=== PATIENT | female | born 1970 | race African-American/Black ===

== ENCOUNTER 2016-11-24 18:39 | Inpatient (IN) | payer OTHER ==
[~2016-11-24] VITALS: Ht 162.6 cm; Wt 102.7 kg
[~2016-11-24 18:39] MED LIST: INSU100C6
[2016-11-24] MEDS ORDERED: SODIUM CHLORIDE 0.9% 1,000 ML IV ONE ×2 (18:59→21:32)
[2016-11-24] MEDS ORDERED: MORPHINE SULFATE 4 MG/ML CPJ (NOT FOR IM USE) IV STA (18:59)
[2016-11-24] MEDS ORDERED: ONDANSETRON HCL 4MG/2ML VIAL IV STA (18:59)
[2016-11-24] MEDS ORDERED: FAMOTIDINE 20MG/2ML VIAL IV STA (18:59)
[2016-11-24] MEDS ORDERED: FAMOTIDINE 20MG/2ML VIAL IV ONE (19:15)
[2016-11-24 19:32] LABS: BASOPHILS % 0.5 % (0.0-2.0); EOSINOPHILS % 0.4 % (0.0-5.0); HEMATOCRIT. 52.2 % (36.0-48.0); HEMOGLOBIN. 17.1 g/dL (12.0-16.0); LYMPHOCYTES % 25.6 % (20.0-50.0); MEAN CORPUSCULAR HEMOGLOBIN 29.5 pg (28.0-32.0); MEAN CORPUSCULAR HGB CONC 32.7 g/dL (31.0-37.0); MEAN CORPUSCULAR VOLUME 90.2 fL (81.0-99.0); MEAN PLATELET VOLUME 9.7 fl (7.4-10.4); MONOCYTES % 5.4 % (2.0-8.0); NEUTROPHILS % 68.1 % (40.0-76.0); PLATELET 355 x1000/uL (130-400); RED BLOOD CELL COUNT 5.79 mill/uL (4.2-5.4); RED CELL DISTRIBUTION WIDTH 13.6 % (11.6-14.6); WHITE BLOOD COUNT 16.5 x1000/uL (4.5-11.0)
[2016-11-24 19:40] LABS: PARTIAL THROMBOPLASTIN TIME 24.7 sec (24.0-34.0); PROTHROMBIN TIME 10.4 sec
[2016-11-24 19:40] LABS: BG BASE EXCESS -6.3 mmol/L (-2.0-2.0); BG CARBOXYHEMOGLOBIN 0.6 % (0.5-1.5); BG DEOXYHEMOGLOBIN 1.6 % (0.0-5.0); BG FRACTION INSPIRED OXYGEN 21; BG HCO3 ACT 14.7 mmol/L (22.0-26.0); BG METHEMOGLOBIN 0.3 % (0.0-1.5); BG OXYGEN SATURATION 98.4 % (92.0-98.5); BG OXYHEMOGLOBIN 97.5 % (94.0-97.0); BG PCO2 21.5 mmHg (35.0-45.0); BG PH 7.452 (7.350-7.450); BG SAMPLE SITE RIGHT RADIAL; BG TOTAL HEMOGLOBIN 17.9 g/dL (12.0-18.0); BG VENT MODE ROOM AIR
[2016-11-24 19:41] LABS: ALANINE AMINOTRANSFERASE 28 IU/L (13-61); ALBUMIN 3.7 g/dL (3.4-5.0); ANION GAP 22; CALCIUM 10.2 mg/dL (8.5-10.1); CARBON DIOXIDE 20 mEq/L (21-32); CHLORIDE 94 mEq/L (98-107); INDEX HEMOLYSI 1 (1-3); INDEX ICTERIC 1 (1-4); INDEX LIPEMIC 1 (1-3); LIPASE 227 IU/L (73-393); MAGNESIUM 2.3 mg/dL (1.8-2.4); UREA NITROGEN BLOOD 22 mg/dL (7-21); eGFR > 60 mL/min (>60)
[2016-11-24 19:44] LABS: TROPONIN I 0.04 ng/mL (0.00-0.04)
[2016-11-24 19:46] LABS: BETA HYDROXYBUTYRATE 4.5 mMol/L (0.0-0.3)
[2016-11-24 19:49] LABS: HCG SCREEN NEGATIVE
[2016-11-24] MEDS ORDERED: INSULIN REGULAR (HUMULIN R) 300UNITS/3ML IV ONE (20:00)
[2016-11-24] MEDS ORDERED: DIPHENHYDRAMINE 50MG/ML VIAL IV PRN (21:45)
[2016-11-24] MEDS ORDERED: CLONIDINE 0.1MG TABLET PO PRN (21:45)
[2016-11-24] MEDS ORDERED: IPRATROPIUM/ALBUTEROL 0.5-3(2.5)MG/3ML NEB INH PRN (21:45)
[2016-11-24] MEDS ORDERED: DEXTROSE 50% WATER 50ML SYRINGE IV PRN (21:45)
[2016-11-24] MEDS ORDERED: ONDANSETRON HCL 4MG/2ML VIAL IV PRN (21:45)
[2016-11-24] MEDS ORDERED: ACETAMINOPHEN 325MG TABLET PO PRN (21:45)
[2016-11-24 22:04] LABS: CLARITY URINE CLEAR (CLEAR); COLOR URINE YELLOW (YELLOW); GLUCOSE URINE 3+ (NEGATIVE); KETONES URINE 3+ (NEGATIVE); LEUKOCYTE ESTERASE URINE NEGATIVE (NEGATIVE); NITRITE URINE NEGATIVE (NEGATIVE); OCCULT BLOOD URINE 3+ (NEGATIVE); PROTEIN URINE NEGATIVE (NEGATIVE); SPECIFIC GRAVITY URINE 1.036 (1.005-1.030); UROBILINOGEN URINE 0.2 E.U./dL (0.2-1.0)
[2016-11-24 22:17] LABS: *AMPHETAMINES SCREEN URINE NEGATIVE (NEGATIVE); *BARBITURATES SCREEN URINE NEGATIVE (NEGATIVE); *BENZODIAZEPINES SCREEN URINE NEGATIVE (NEGATIVE); *COCAINE SCREEN URINE NEGATIVE (NEGATIVE); ECSTASY MDMA SCREEN URINE NEGATIVE (NEGATIVE); METHADONE URINE SCREEN NEGATIVE (NEGATIVE); OPIATES URINE SCREEN NEGATIVE (NEGATIVE); PHENCYCLIDINE URINE SCREEN NEGATIVE (NEGATIVE)
[2016-11-24 22:21] LABS: CANNABINOID URINE SCREEN PRESUMTIVE POSITIVE (NEGATIVE)
[2016-11-24 22:31] LABS: BACTERIA URINE TRACE; RBC URINE 50-100 /hpf (0-2); SQUAMOUS EPITHELIAL CELL URINE FEW /lpf (RARE/1+); WBC URINE 0-2 /hpf (0-2)
[2016-11-24] MEDS: INSULIN DETEMIR UD 100 UNITS/ML SYR SUBCUT SCH (23:25)
[2016-11-24 23:44] VITALS: BP 138/85
[2016-11-25] MEDS: BLOOD SUGAR DIAGNOSTIC STRIP TEST SCH ×5 (01:42→20:24)
[2016-11-25] MEDS: INSULIN LISPRO 100 UNITS/ML SUBCUT SCH ×6 (01:50→20:23)
[2016-11-25 06:11] LABS: BASOPHILS % 0.6 % (0.0-2.0); EOSINOPHILS % 0.8 % (0.0-5.0); HEMATOCRIT. 47.9 % (36.0-48.0); HEMOGLOBIN. 15.8 g/dL (12.0-16.0); LYMPHOCYTES % 36.3 % (20.0-50.0); MEAN CORPUSCULAR HEMOGLOBIN 29.4 pg (28.0-32.0); MEAN CORPUSCULAR HGB CONC 33.1 g/dL (31.0-37.0); MEAN CORPUSCULAR VOLUME 88.7 fL (81.0-99.0); MEAN PLATELET VOLUME 9.4 fl (7.4-10.4); MONOCYTES % 7.6 % (2.0-8.0); NEUTROPHILS % 54.7 % (40.0-76.0); PLATELET 311 x1000/uL (130-400); RED BLOOD CELL COUNT 5.39 mill/uL (4.2-5.4); RED CELL DISTRIBUTION WIDTH 13.3 % (11.6-14.6); WHITE BLOOD COUNT 14.8 x1000/uL (4.5-11.0)
[2016-11-25 06:37] LABS: ALANINE AMINOTRANSFERASE 24 IU/L (13-61); ALBUMIN 3.4 g/dL (3.4-5.0); ANION GAP 15; CALCIUM 9.2 mg/dL (8.5-10.1); CARBON DIOXIDE 26 mEq/L (21-32); CHLORIDE 101 mEq/L (98-107); HDL CHOLESTEROL 35 mg/dL (40-59); INDEX HEMOLYSI 1 (1-3); INDEX ICTERIC 1 (1-4); INDEX LIPEMIC 1 (1-3); LDL CHOLESTEROL 108 mg/dL (5-100); TRIGLYCERIDE 238 mg/dL (0-150); UREA NITROGEN BLOOD 16 mg/dL (7-21); eGFR > 60 mL/min (>60)
[2016-11-25 06:38] LABS: TROPONIN I 0.04 ng/mL (0.00-0.04)
[2016-11-25] MEDS ORDERED: BLOOD SUGAR DIAGNOSTIC STRIP TEST SCH (06:45)
[2016-11-25] MEDS ORDERED: INSULIN LISPRO 100 UNITS/ML SUBCUT SCH (07:15)
[2016-11-25 08:00] VITALS: BP 135/84
[2016-11-25] MEDS: INSULIN DETEMIR UD 100 UNITS/ML SYR SUBCUT SCH ×2 (09:52→21:28)
[2016-11-25] MEDS: HYDROCODONE/ACETAMINOPHEN 5/325MG TABLET PO PRN (11:19)
[2016-11-25 12:00] VITALS: BP 132/81
[2016-11-25 16:00] VITALS: BP 132/89
[2016-11-25 20:00] VITALS: BP 144/88
[2016-11-26] VITALS: BP 134/76
[2016-11-26 04:00] VITALS: BP 148/89
[2016-11-26] MEDS: BLOOD SUGAR DIAGNOSTIC STRIP TEST SCH ×2 (06:24→12:21)
[2016-11-26] MEDS: INSULIN LISPRO 100 UNITS/ML SUBCUT SCH ×4 (06:28→12:30)
[2016-11-26] MEDS: HYDROCODONE/ACETAMINOPHEN 5/325MG TABLET PO PRN (06:41)
[2016-11-26 08:00] VITALS: BP 106/84
[2016-11-26] MEDS: INSULIN DETEMIR UD 100 UNITS/ML SYR SUBCUT SCH (09:38)
[2016-11-26 11:23] LABS: BASOPHILS % 0.3 % (0.0-2.0); HEMATOCRIT. 43.3 % (36.0-48.0); HEMOGLOBIN. 14.7 g/dL (12.0-16.0); LYMPHOCYTES % 40.3 % (20.0-50.0); MEAN CORPUSCULAR HEMOGLOBIN 29.6 pg (28.0-32.0); MEAN PLATELET VOLUME 9.2 fl (7.4-10.4); MONOCYTES % 5.7 % (2.0-8.0); NEUTROPHILS % 52.7 % (40.0-76.0); PLATELET 256 x1000/uL (130-400); RED BLOOD CELL COUNT 4.98 mill/uL (4.2-5.4); RED CELL DISTRIBUTION WIDTH 13.3 % (11.6-14.6); WHITE BLOOD COUNT 10.2 x1000/uL (4.5-11.0)
[2016-11-26 11:38] LABS: ANION GAP 11; CALCIUM 8.3 mg/dL (8.5-10.1); CARBON DIOXIDE 28 mEq/L (21-32); CHLORIDE 98 mEq/L (98-107); INDEX HEMOLYSI 1 (1-3); INDEX ICTERIC 1 (1-4); INDEX LIPEMIC 1 (1-3); UREA NITROGEN BLOOD 10 mg/dL (7-21); eGFR > 60 mL/min (>60)
[2016-11-26 12:00] VITALS: BP 121/73
[2016-11-26 14:11] VITALS: BP 121/73
== END 2016-11-26 15:16 | disposition home or self-care (01) | DRG 420 ==
LOC: ER 18:40 → 5WST 20:31
PROVIDERS: ADMIT Internal Medicine; ATTEND Internal Medicine
DX: E11.65 Type 2 diabetes mellitus with hyperglycemia (principal); I10 Essential (primary) hypertension; E87.1 Hypo-osmolality and hyponatremia; E86.0 Dehydration; D72.829 Elevated white blood cell count, unspecified; G89.29 Other chronic pain; F12.90 Cannabis use, unspecified, uncomplicated; R74.8 Abnormal levels of other serum enzymes
CPT/HCPCS: 36415; 36600; 74022; 80048; 80053; 80061; 80305; 81001; 82010; 82375; 82805; 82962; 83036; 83690; 83735; 83930; 83935; 84484; 84703; 85025; 85610; 85730; 87040; 87086; 93005; 96361; 96374; 96375; 96376; 99291; J1815; J2270; J2405; J3490; J7030

== ENCOUNTER 2017-01-11 11:11 | Inpatient (IN) | payer OTHER ==
[~2017-01-11] VITALS: Ht 157.5 cm; Wt 108.9 kg
[2017-01-11] MEDS ORDERED: SODIUM CHLORIDE 0.9% 1,000 ML IV ONE (11:45)
[2017-01-11] MEDS ORDERED: MORPHINE SULFATE 4 MG/ML CPJ (NOT FOR IM USE) IV STA (11:45)
[2017-01-11] MEDS ORDERED: ONDANSETRON HCL 4MG/2ML VIAL IV STA (11:45)
[2017-01-11 12:55] LABS: BASOPHILS % 0.9 % (0.0-2.0); EOSINOPHILS % 0.1 % (0.0-5.0); HEMOGLOBIN. 13.4 g/dL (12.0-16.0); LYMPHOCYTES % 33.4 % (20.0-50.0); MEAN CORPUSCULAR HEMOGLOBIN 29.2 pg (28.0-32.0); MEAN CORPUSCULAR VOLUME 87.2 fL (81.0-99.0); MEAN PLATELET VOLUME 8.2 fl (7.4-10.4); MONOCYTES % 9.8 % (2.0-8.0); NEUTROPHILS % 55.8 % (40.0-76.0); PLATELET 233 x1000/uL (130-400); RED BLOOD CELL COUNT 4.59 mill/uL (4.2-5.4); RED CELL DISTRIBUTION WIDTH 13.5 % (11.6-14.6)
[2017-01-11 13:02] LABS: INR 1.2; PARTIAL THROMBOPLASTIN TIME 28.7 sec (24.0-34.0); PROTHROMBIN TIME 12.1 sec
[2017-01-11 13:08] LABS: CARBON DIOXIDE 30 mEq/L (21-32); CHLORIDE 101 mEq/L (98-107)
[2017-01-11 13:12] LABS: HCG SCREEN NEGATIVE
[2017-01-11 13:35] LABS: CLARITY URINE TURBID (CLEAR); COLOR URINE DARK YELLOW (YELLOW); GLUCOSE URINE NEGATIVE (NEGATIVE); KETONES URINE 1+ (NEGATIVE); LEUKOCYTE ESTERASE URINE 3+ (NEGATIVE); NITRITE URINE POSITIVE (NEGATIVE); OCCULT BLOOD URINE 2+ (NEGATIVE); PH URINE 5.5 (4.5-8.0); PROTEIN URINE 3+ (NEGATIVE)
[2017-01-11] MEDS ORDERED: CEFTRIAXONE 1 G PREMIX 50 ML IV ONE (15:45)
[2017-01-11] MEDS ORDERED: MORPHINE SULFATE 4 MG/ML CPJ (NOT FOR IM USE) IV ONE (16:15)
[2017-01-11 18:00] VITALS: BP 137/69
[2017-01-11] MEDS ORDERED: CLONIDINE 0.1MG TABLET PO PRN (19:00)
[2017-01-11] MEDS ORDERED: HYDROCODONE/ACETAMINOPHEN 5/325MG TABLET PO PRN (19:00)
[2017-01-11] MEDS ORDERED: IPRATROPIUM/ALBUTEROL 0.5-3(2.5)MG/3ML NEB INH PRN (19:00)
[2017-01-11] MEDS ORDERED: MAGNESIUM/ALUMINUM HYDROXIDE/SIMETHICONE 30ML UDC PO PRN (19:00)
[2017-01-11] MEDS ORDERED: DOCUSATE SODIUM 100MG CAPSULE PO PRN (19:00)
[2017-01-11] MEDS ORDERED: ONDANSETRON HCL 4MG/2ML VIAL IV PRN (19:00)
[2017-01-11 20:00] VITALS: BP 116/70
[2017-01-11] MEDS ORDERED: DEXTROSE 50% WATER 50ML SYRINGE IV PRN (21:15)
[2017-01-11] MEDS: ACETAMINOPHEN 325MG TABLET PO PRN (21:16)
[2017-01-11] MEDS: ENOXAPARIN 30MG/0.3ML SYR SUBCUT SCH (21:16)
[2017-01-11 21:34] VITALS: BP 118/68
[2017-01-11 21:45] LABS: CREATINE KINASE 87 IU/L (26-192); CREATINE KINASE MB FRACTION < 0.5 ng/mL (0.5-3.6); TROPONIN I < 0.02 ng/mL (0.00-0.04)
[2017-01-11] MEDS: SODIUM CHLORIDE 0.9% 1,000 ML IV SCH (22:05)
[2017-01-11] MEDS: CEFTRIAXONE 1 G PREMIX 50 ML IV SCH (22:05)
[2017-01-12] VITALS: BP 121/65
[2017-01-12 04:00] VITALS: BP 112/60
[2017-01-12] MEDS: BLOOD SUGAR DIAGNOSTIC STRIP TEST SCH ×3 (06:46→17:20)
[2017-01-12] MEDS: SODIUM CHLORIDE 0.9% 1,000 ML IV SCH (06:47)
[2017-01-12 06:56] LABS: BASOPHILS % 0.3 % (0.0-2.0); EOSINOPHILS % 1.6 % (0.0-5.0); HEMATOCRIT. 39.6 % (36.0-48.0); HEMOGLOBIN. 13.5 g/dL (12.0-16.0); LYMPHOCYTES % 34.7 % (20.0-50.0); MEAN CORPUSCULAR HEMOGLOBIN 29.6 pg (28.0-32.0); MEAN CORPUSCULAR VOLUME 86.9 fL (81.0-99.0); MEAN PLATELET VOLUME 8.6 fl (7.4-10.4); MONOCYTES % 10.4 % (2.0-8.0); PLATELET 250 x1000/uL (130-400); RED BLOOD CELL COUNT 4.56 mill/uL (4.2-5.4); RED CELL DISTRIBUTION WIDTH 13.4 % (11.6-14.6)
[2017-01-12] MEDS: INSULIN LISPRO 100 UNITS/ML SUBCUT SCH ×3 (07:49→17:34)
[2017-01-12 08:00] VITALS: BP 114/60
[2017-01-12] MEDS: ENOXAPARIN 30MG/0.3ML SYR SUBCUT SCH (08:19)
[2017-01-12] MEDS: CEFTRIAXONE 1 G PREMIX 50 ML IV SCH (08:27)
[2017-01-12 08:29] LABS: CARBON DIOXIDE 27 mEq/L (21-32); CHLORIDE 104 mEq/L (98-107); CREATINE KINASE 67 IU/L (26-192); CREATINE KINASE MB FRACTION < 0.5 ng/mL (0.5-3.6); HDL CHOLESTEROL 9 mg/dL (40-59); LDL CHOLESTEROL 77 mg/dL (5-100); TROPONIN I < 0.02 ng/mL (0.00-0.04)
[2017-01-12] MEDS: ACETAMINOPHEN 325MG TABLET PO PRN (11:37)
[2017-01-12 12:00] VITALS: BP 117/64
[2017-01-12 16:00] VITALS: BP 117/75
[2017-01-12] MEDS ORDERED: CEFTRIAXONE 1 G PREMIX 50 ML IV NR (17:30)
[2017-01-12 18:28] VITALS: BP 117/75
== END 2017-01-12 20:30 | disposition home or self-care (01) | DRG 463 ==
LOC: ER 11:18 → 6EST 15:57 → ENRESERV 16:14
PROVIDERS: ADMIT Internal Medicine; ATTEND Internal Medicine
DX: N10 Acute pyelonephritis (principal); Z68.41 Body mass index [BMI] 40.0-44.9, adult; I10 Essential (primary) hypertension; E11.9 Type 2 diabetes mellitus without complications; E66.9 Obesity, unspecified; Z60.2 Problems related to living alone; M48.07 Spinal stenosis, lumbosacral region
CPT/HCPCS: 36415; 71010; 74176; 76705; 80053; 80061; 81001; 82550; 82553; 82962; 83690; 84443; 84484; 84703; 85025; 85610; 85730; 87040; 93005; 93970; 96361; 96365; 96375; 99285; J0696; J1650; J1815; J2270; J2405; J7030

== ENCOUNTER 2018-04-21 15:54 | Emergency (ER) | payer OTHER ==
[~2018-04-21] VITALS: Ht 162.6 cm; Wt 76.0 kg
[2018-04-21] MEDS ORDERED: ONDANSETRON 4MG ODT PO STA (16:09)
[2018-04-21] MEDS ORDERED: IBUPROFEN 600MG TABLET PO ONE (16:15)
[2018-04-21 16:39] LABS: BASOPHILS % 0.4 % (0.0-2.0); EOSINOPHILS % 0.1 % (0.0-5.0); HEMATOCRIT. 44.5 % (36.0-48.0); LYMPHOCYTES % 13.1 % (20.0-50.0); MEAN CORPUSCULAR HEMOGLOBIN 29.6 pg (28.0-32.0); MEAN CORPUSCULAR VOLUME 87.7 fL (81.0-99.0); MEAN PLATELET VOLUME 8.2 fl (7.4-10.4); MONOCYTES % 1.9 % (2.0-8.0); NEUTROPHILS % 84.5 % (40.0-76.0); PLATELET 354 x1000/uL (130-400); RED BLOOD CELL COUNT 5.07 mill/uL (4.2-5.4); RED CELL DISTRIBUTION WIDTH 13.6 % (11.6-14.6)
[2018-04-21 16:44] LABS: CHLORIDE 102 mEq/L (98-107)
[2018-04-21] MEDS ORDERED: ONDANSETRON 4MG ODT PO ONE (17:30)
[2018-04-21] MEDS ORDERED: MAGNESIUM/ALUMINUM HYDROXIDE/SIMETHICONE 30ML UDC PO ONE (17:45)
[2018-04-21] MEDS ORDERED: ONDANSETRON HCL 4MG/2ML INJ IV STA (17:47)
[2018-04-21] MEDS ORDERED: SODIUM CHLORIDE 0.9% 1,000 ML IV ONE (17:47)
[2018-04-21] MEDS ORDERED: KETOROLAC 30MG/ML VIAL IV STA (17:47)
[2018-04-21 19:33] LABS: CLARITY URINE CLOUDY (CLEAR); KETONES URINE 3+ (NEGATIVE); LEUKOCYTE ESTERASE URINE NEGATIVE (NEGATIVE); NITRITE URINE NEGATIVE (NEGATIVE); OCCULT BLOOD URINE 3+ (NEGATIVE); PROTEIN URINE 3+ (NEGATIVE); SPECIFIC GRAVITY URINE 1.037 (1.005-1.030); UROBILINOGEN URINE 0.2 E.U./dL (0.2-1.0)
[2018-04-21 19:37] LABS: COLOR URINE DARK YELLOW (YELLOW)
[2018-04-21 20:10] VITALS: BP 125/64
== END 2018-04-21 20:43 | disposition home or self-care (01) ==
LOC: ER 16:18
DX: R10.9 Unspecified abdominal pain (principal); Z79.4 Long term (current) use of insulin; E11.65 Type 2 diabetes mellitus with hyperglycemia; D72.829 Elevated white blood cell count, unspecified; R94.31 Abnormal electrocardiogram [ECG] [EKG]; R11.2 Nausea with vomiting, unspecified
CPT/HCPCS: 36415; 71045; 80053; 81003; 83690; 85025; 93005; 96361; 96374; 96375; 99284; J1885; J2405; J7030; Q0162; Z7610

== ENCOUNTER 2018-04-22 19:10 | Emergency (ER) | payer OTHER ==
[~2018-04-22] VITALS: Ht 162.6 cm; Wt 105.0 kg
[2018-04-22] MEDS ORDERED: SODIUM CHLORIDE 0.9% 1,000 ML IV ONE (19:23)
[2018-04-22] MEDS ORDERED: ONDANSETRON HCL 4MG/2ML INJ IV STA (19:23)
[2018-04-22] MEDS ORDERED: MORPHINE SULFATE 4 MG/ML CPJ (NOT FOR IM USE) IV STA (19:23)
[2018-04-22] MEDS ORDERED: PANTOPRAZOLE 80 MG in SODIUM CHLORIDE 0.9% 100 ML IV STA (19:27)
[2018-04-22] MEDS ORDERED: PANTOPRAZOLE SODIUM 40 MG/VIAL IV STA (19:27)
[2018-04-22 20:49] LABS: BASOPHILS % 0.5 % (0.0-2.0); EOSINOPHILS % 0.1 % (0.0-5.0); HEMATOCRIT. 41.6 % (36.0-48.0); HEMOGLOBIN. 14.1 g/dL (12.0-16.0); LYMPHOCYTES % 22.1 % (20.0-50.0); MEAN CORPUSCULAR HEMOGLOBIN 29.9 pg (28.0-32.0); MEAN CORPUSCULAR VOLUME 88.4 fL (81.0-99.0); MEAN PLATELET VOLUME 8.7 fl (7.4-10.4); MONOCYTES % 5.5 % (2.0-8.0); NEUTROPHILS % 71.8 % (40.0-76.0); PLATELET 341 x1000/uL (130-400); RED BLOOD CELL COUNT 4.71 mill/uL (4.2-5.4); RED CELL DISTRIBUTION WIDTH 13.3 % (11.6-14.6)
[2018-04-22 20:52] LABS: CHLORIDE 97 mEq/L (98-107); INR 1.1; PARTIAL THROMBOPLASTIN TIME 26.4 sec (23.4-31.0); PROTHROMBIN TIME 10.6 sec (9.1-11.1)
[2018-04-22 20:59] LABS: HCG SCREEN NEGATIVE
[2018-04-22] MEDS ORDERED: LEVOFLOXACIN 750MG PREMIX 150 ML IV ONE (21:00)
[2018-04-22] MEDS ORDERED: SODIUM CHLORIDE 0.9% 1000ML BAG (SEPSIS BOLUS) IV ONE (21:00)
[2018-04-22 21:02] LABS: CLARITY URINE TURBID (CLEAR); COLOR URINE ORANGE (YELLOW); KETONES URINE NEGATIVE (NEGATIVE); LEUKOCYTE ESTERASE URINE 2+ (NEGATIVE); NITRITE URINE POSITIVE (NEGATIVE); OCCULT BLOOD URINE 2+ (NEGATIVE); PH URINE 5.5 (4.5-8.0); PROTEIN URINE 2+ (NEGATIVE); SPECIFIC GRAVITY URINE 1.024 (1.005-1.030)
[2018-04-22] MEDS ORDERED: KCL 10MEQ/50ML PREMIX 50 ML IV ONE (21:45)
[2018-04-22 22:59] LABS: BASOPHILS % 0.8 % (0.0-2.0); EOSINOPHILS % 0.1 % (0.0-5.0); HEMOGLOBIN. 14.1 g/dL (12.0-16.0); LYMPHOCYTES % 25.6 % (20.0-50.0); MEAN CORPUSCULAR HEMOGLOBIN 29.7 pg (28.0-32.0); MEAN CORPUSCULAR VOLUME 88.4 fL (81.0-99.0); MEAN PLATELET VOLUME 8.4 fl (7.4-10.4); MONOCYTES % 6.3 % (2.0-8.0); NEUTROPHILS % 67.2 % (40.0-76.0); PLATELET 333 x1000/uL (130-400); RED BLOOD CELL COUNT 4.76 mill/uL (4.2-5.4); RED CELL DISTRIBUTION WIDTH 13.3 % (11.6-14.6)
[2018-04-23] MEDS ORDERED: MORPHINE SULFATE 4 MG/ML CPJ (NOT FOR IM USE) IV ONE (00:45)
[2018-04-23 02:33] VITALS: BP 140/60
== END 2018-04-23 03:02 | disposition short-term general hospital (02) ==
LOC: ER 19:10 → 6WST 21:33 → UNDOADMIN 21:33 → EDBEDREQTM 21:35 → EDBEDREQ 21:35 → ENRESERV 23:13 → ER 04-23 03:02 → CANBEDREQ 04-23 06:28
DX: K92.2 Gastrointestinal hemorrhage, unspecified (principal); N39.0 Urinary tract infection, site not specified; K85.90 Acute pancreatitis without necrosis or infection, unspecified; E87.6 Hypokalemia; R00.1 Bradycardia, unspecified
CPT/HCPCS: 36415; 71045; 74176; 80053; 81003; 82962; 83605; 83690; 84484; 84703; 85025; 85610; 85730; 87040; 87077; 87086; 87186; 93005; 96365; 96366; 96367; 96368; 96375; 96376; 99285; C9113; J1956; J2270; J2405; J3480; J7030; X7700; Z7610; 96361; J7050

== ENCOUNTER 2018-04-27 15:05 | Emergency (ER) | payer OTHER ==
[~2018-04-27] VITALS: Ht 165.1 cm; Wt 100.0 kg
[2018-04-27] MEDS ORDERED: KETOROLAC 30MG/ML VIAL IV STA (20:03)
[2018-04-27] MEDS ORDERED: ONDANSETRON HCL 4MG/2ML INJ IV STA (20:03)
[2018-04-27] MEDS ORDERED: SODIUM CHLORIDE 0.9% 1,000 ML IV ONE (20:03)
[2018-04-27 21:06] LABS: BASOPHILS % 0.4 % (0.0-2.0); EOSINOPHILS % 0.1 % (0.0-5.0); HEMATOCRIT. 43.7 % (36.0-48.0); HEMOGLOBIN. 14.8 g/dL (12.0-16.0); LYMPHOCYTES % 14.6 % (20.0-50.0); MEAN CORPUSCULAR HEMOGLOBIN 29.9 pg (28.0-32.0); MEAN CORPUSCULAR VOLUME 88.3 fL (81.0-99.0); MEAN PLATELET VOLUME 8.5 fl (7.4-10.4); MONOCYTES % 5.1 % (2.0-8.0); NEUTROPHILS % 79.8 % (40.0-76.0); PLATELET 372 x1000/uL (130-400); RED BLOOD CELL COUNT 4.94 mill/uL (4.2-5.4); RED CELL DISTRIBUTION WIDTH 13.6 % (11.6-14.6)
[2018-04-27 21:12] LABS: CHLORIDE 101 mEq/L (98-107)
[2018-04-27] MEDS ORDERED: POTASSIUM CHLORIDE 20MEQ TABLET SR PO ONE (22:45)
[2018-04-28 00:02] LABS: CLARITY URINE CLOUDY (CLEAR); COLOR URINE YELLOW (YELLOW); KETONES URINE 1+ (NEGATIVE); LEUKOCYTE ESTERASE URINE 1+ (NEGATIVE); NITRITE URINE NEGATIVE (NEGATIVE); OCCULT BLOOD URINE 2+ (NEGATIVE); PH URINE 6.5 (4.5-8.0); PROTEIN URINE 3+ (NEGATIVE); SPECIFIC GRAVITY URINE 1.022 (1.005-1.030); UROBILINOGEN URINE 0.2 E.U./dL (0.2-1.0)
[2018-04-28 01:08] VITALS: BP 155/55
== END 2018-04-28 01:15 | disposition home or self-care (01) ==
LOC: ER 15:05
DX: N30.00 Acute cystitis without hematuria (principal); I10 Essential (primary) hypertension; E11.65 Type 2 diabetes mellitus with hyperglycemia; D35.02 Benign neoplasm of left adrenal gland; D72.829 Elevated white blood cell count, unspecified; E78.00 Pure hypercholesterolemia, unspecified; Z79.4 Long term (current) use of insulin
CPT/HCPCS: 36415; 74176; 80053; 81003; 83690; 85025; 96361; 96374; 96375; 99285; J1885; J2405; J7030

== ENCOUNTER 2018-06-18 08:43 | Emergency (ER) | payer OTHER ==
[~2018-06-18] VITALS: Ht 172.7 cm; Wt 100.0 kg
[2018-06-18] MEDS ORDERED: ONDANSETRON HCL 4MG/2ML INJ IV STA (09:31)
[2018-06-18] MEDS ORDERED: KETOROLAC 30MG/ML VIAL IV STA (09:31)
[2018-06-18] MEDS ORDERED: SODIUM CHLORIDE 0.9% 1,000 ML IV ONE ×2 (09:31→11:43)
[2018-06-18 10:11] LABS: BASOPHILS % 0.6 % (0.0-2.0); EOSINOPHILS % 0.1 % (0.0-5.0); HEMATOCRIT. 42.8 % (36.0-48.0); HEMOGLOBIN. 14.7 g/dL (12.0-16.0); LYMPHOCYTES % 11.4 % (20.0-50.0); MEAN CORPUSCULAR HEMOGLOBIN 30.3 pg (28.0-32.0); MEAN CORPUSCULAR VOLUME 88.1 fL (81.0-99.0); MEAN PLATELET VOLUME 8.4 fl (7.4-10.4); NEUTROPHILS % 84.9 % (40.0-76.0); PLATELET 336 x1000/uL (130-400); RED BLOOD CELL COUNT 4.86 mill/uL (4.2-5.4)
[2018-06-18 10:20] LABS: PROTHROMBIN TIME 10.1 sec (9.1-11.1)
[2018-06-18 10:39] LABS: CHLORIDE 99 mEq/L (98-107)
[2018-06-18 10:59] LABS: CLARITY URINE CLOUDY (CLEAR); COLOR URINE YELLOW (YELLOW); KETONES URINE 4+ (NEGATIVE); LEUKOCYTE ESTERASE URINE 2+ (NEGATIVE); NITRITE URINE POSITIVE (NEGATIVE); OCCULT BLOOD URINE 1+ (NEGATIVE); PH URINE 5.5 (4.5-8.0); PROTEIN URINE 3+ (NEGATIVE); SPECIFIC GRAVITY URINE 1.035 (1.005-1.030); UROBILINOGEN URINE 0.2 E.U./dL (0.2-1.0)
[2018-06-18 11:05] LABS: HCG SCREEN NEGATIVE
[2018-06-18 11:15] LABS: *COCAINE SCREEN URINE NEGATIVE (NEGATIVE); OPIATES URINE SCREEN NEGATIVE (NEGATIVE)
[2018-06-18] MEDS ORDERED: ONDANSETRON HCL 4MG/2ML INJ IV ONE (11:15)
[2018-06-18] MEDS ORDERED: METOCLOPRAMIDE HCL 10MG/2ML VIAL IV ONE (11:15)
[2018-06-18] MEDS ORDERED: DIPHENHYDRAMINE 50MG/ML VIAL IV ONE (11:15)
[2018-06-18 11:16] LABS: METHADONE URINE SCREEN NEGATIVE (NEGATIVE); PHENCYCLIDINE URINE SCREEN NEGATIVE (NEGATIVE)
[2018-06-18 11:21] LABS: *AMPHETAMINES SCREEN URINE NEGATIVE (NEGATIVE)
[2018-06-18 11:22] LABS: *BENZODIAZEPINES SCREEN URINE NEGATIVE (NEGATIVE)
[2018-06-18 11:23] LABS: *BARBITURATES SCREEN URINE NEGATIVE (NEGATIVE); CANNABINOID URINE SCREEN PRESUMTIVE POSITIVE (NEGATIVE)
[2018-06-18] MEDS ORDERED: CEFTRIAXONE 1 G PREMIX 50 ML IV ONE (11:30)
[2018-06-18] MEDS ORDERED: LEVOFLOXACIN 750MG PREMIX 150 ML IV ONE (11:30)
[2018-06-18] MEDS ORDERED: CAPSAICIN 0.075% CREAM 60GM TOP PRN (12:00)
[2018-06-18] MEDS ORDERED: TRAMADOL 50MG TABLET PO ONE (14:00)
[2018-06-18] MEDS ORDERED: KETOROLAC 30MG/ML VIAL IV ONE (16:30)
[2018-06-18 18:15] VITALS: BP 168/50
== END 2018-06-18 18:20 | disposition home or self-care (01) ==
LOC: ER 08:43
DX: N39.0 Urinary tract infection, site not specified (principal); F12.10 Cannabis abuse, uncomplicated; E11.9 Type 2 diabetes mellitus without complications; E78.00 Pure hypercholesterolemia, unspecified; I10 Essential (primary) hypertension; Z79.4 Long term (current) use of insulin
CPT/HCPCS: 36415; 74176; 80053; 80305; 81003; 81025; 82962; 83690; 84703; 85025; 85610; 87077; 87086; 87186; 96361; 96365; 96367; 96375; 96376; 99284; J0696; J1885; J1956; J2405; J7030

== ENCOUNTER 2018-08-24 22:53 | Emergency (ER) | payer OTHER ==
[~2018-08-24] VITALS: Ht 154.9 cm; Wt 100.0 kg
[2018-08-24] MEDS ORDERED: ONDANSETRON HCL 4MG/2ML INJ IV STA (23:13)
[2018-08-24] MEDS ORDERED: SODIUM CHLORIDE 0.9% 1,000 ML IV ONE ×2 (23:13)
[2018-08-24] MEDS ORDERED: MORPHINE SULFATE 4 MG/ML CPJ (NOT FOR IM USE) IV STA (23:13)
[2018-08-25 00:15] LABS: CHLORIDE 102 mEq/L (98-107)
[2018-08-25 00:18] LABS: HCG SCREEN NEGATIVE
[2018-08-25 00:20] LABS: INR 1.1; PROTHROMBIN TIME 10.6 sec (9.1-11.1)
[2018-08-25 00:22] LABS: BETA HYDROXYBUTYRATE 0.9 mMol/L (0.0-0.3)
[2018-08-25 00:22] LABS: BG BASE EXCESS 1.5 mmol/L (-2.0-2.0); BG CARBOXYHEMOGLOBIN 1.7 % (0.5-1.5); BG DEOXYHEMOGLOBIN 5.8 % (0.0-5.0); BG FRACTION INSPIRED OXYGEN 21; BG HCO3 ACT 26.5 mmol/L (22.0-26.0); BG METHEMOGLOBIN 0.3 % (0.0-1.5); BG OXYGEN SATURATION 94.1 % (92.0-98.5); BG OXYHEMOGLOBIN 92.2 % (94.0-97.0); BG PCO2 42.7 mmHg (35.0-45.0); BG PO2 70.3 mmHg (75.0-100.0); BG SAMPLE SITE RIGHT BRACHIAL; BG TOTAL HEMOGLOBIN 15.6 g/dL (12.0-18.0); BG VENT MODE ROOM AIR
[2018-08-25 00:31] LABS: BASOPHILS % 0.3 % (0.0-2.0); HEMOGLOBIN. 15.7 g/dL (12.0-16.0); LYMPHOCYTES % 9.6 % (20.0-50.0); MEAN CORPUSCULAR HEMOGLOBIN 29.2 pg (28.0-32.0); MEAN CORPUSCULAR VOLUME 87.5 fL (81.0-99.0); MEAN PLATELET VOLUME 8.2 fl (7.4-10.4); MONOCYTES % 1.9 % (2.0-8.0); NEUTROPHILS % 88.2 % (40.0-76.0); PLATELET 391 x1000/uL (130-400); RED BLOOD CELL COUNT 5.37 mill/uL (4.2-5.4); RED CELL DISTRIBUTION WIDTH 13.4 % (11.6-14.6)
[2018-08-25 00:44] LABS: CLARITY URINE CLEAR (CLEAR); COLOR URINE YELLOW (YELLOW); KETONES URINE 4+ (NEGATIVE); LEUKOCYTE ESTERASE URINE NEGATIVE (NEGATIVE); NITRITE URINE NEGATIVE (NEGATIVE); OCCULT BLOOD URINE 1+ (NEGATIVE); PH URINE 5.5 (4.5-8.0); PROTEIN URINE 3+ (NEGATIVE); SPECIFIC GRAVITY URINE 1.041 (1.005-1.030); UROBILINOGEN URINE 0.2 E.U./dL (0.2-1.0)
[2018-08-25] MEDS ORDERED: METRONIDAZOLE 500MG TABLET PO SCH (02:00)
[2018-08-25] MEDS ORDERED: METOCLOPRAMIDE HCL 10MG/2ML VIAL IV SCH (02:00)
[2018-08-25] MEDS ORDERED: CEFTRIAXONE SODIUM 250 MG/VIAL IV ONE (02:15)
[2018-08-25] MEDS ORDERED: CEFTRIAXONE 250 MG in DEXTROSE 5% WATER 50 ML IV SCH (02:30)
[2018-08-25] MEDS ORDERED: AZITHROMYCIN 1,000 MG in DEXT 5% WATER 250 ML IV SCH (02:30)
[2018-08-25 04:47] VITALS: BP 172/92
== END 2018-08-25 04:50 | disposition home or self-care (01) ==
LOC: ER 22:53
DX: E11.65 Type 2 diabetes mellitus with hyperglycemia (principal); M79.10 Myalgia, unspecified site; A59.9 Trichomoniasis, unspecified; I10 Essential (primary) hypertension; F99 Mental disorder, not otherwise specified; J45.909 Unspecified asthma, uncomplicated; F12.10 Cannabis abuse, uncomplicated; Z79.4 Long term (current) use of insulin; W01.0XXA Fall on same level from slipping, tripping and stumbling without subsequent striking against object, initial encounter; Y93.89 Activity, other specified; Y92.018 Other place in single-family (private) house as the place of occurrence of the external cause
CPT/HCPCS: 36415; 36600; 70450; 71045; 73030; 73562; 74176; 80053; 81003; 82010; 82375; 82805; 82962; 83690; 84484; 84703; 85025; 85610; 93005; 96361; 96365; 96367; 96375; 99284; J0456; J0696; J2270; J2405; J2765; J7030; J7060; Z7610

== ENCOUNTER 2018-10-06 06:29 | Emergency (ER) | payer OTHER ==
[~2018-10-06] VITALS: Ht 162.6 cm; Wt 105.0 kg
[2018-10-06 10:11] LABS: BASOPHILS % 0.7 % (0.0-2.0); HEMATOCRIT. 47.8 % (36.0-48.0); LYMPHOCYTES % 16.3 % (20.0-50.0); MEAN CORPUSCULAR HEMOGLOBIN 29.2 pg (28.0-32.0); MEAN CORPUSCULAR VOLUME 87.1 fL (81.0-99.0); MEAN PLATELET VOLUME 8.3 fl (7.4-10.4); MONOCYTES % 5.4 % (2.0-8.0); NEUTROPHILS % 77.6 % (40.0-76.0); PLATELET 385 x1000/uL (130-400); RED BLOOD CELL COUNT 5.49 mill/uL (4.2-5.4); RED CELL DISTRIBUTION WIDTH 14.5 % (11.6-14.6)
[2018-10-06 10:19] LABS: CHLORIDE 100 mEq/L (98-107)
[2018-10-06 10:20] LABS: INR 1.1; PROTHROMBIN TIME 11.1 sec (9.1-11.1)
[2018-10-06] MEDS ORDERED: SODIUM CHLORIDE 0.9% 1000ML BAG (SEPSIS BOLUS) IV ONE (11:45)
[2018-10-06] MEDS ORDERED: ONDANSETRON HCL 4MG/2ML INJ IV ONE (11:45)
[2018-10-06] MEDS ORDERED: KETOROLAC 15MG/ML VIAL IV ONE (11:45)
[2018-10-06] MEDS ORDERED: SODIUM CHLORIDE 0.9% 1,650 ML IV SCH (12:15)
[2018-10-06 14:33] VITALS: BP 171/62
== END 2018-10-06 15:00 | disposition home or self-care (01) ==
LOC: ER 06:29
DX: B34.9 Viral infection, unspecified (principal); M79.10 Myalgia, unspecified site; M54.5 Low back pain; E11.65 Type 2 diabetes mellitus with hyperglycemia; J45.909 Unspecified asthma, uncomplicated; D72.829 Elevated white blood cell count, unspecified; E87.6 Hypokalemia; F12.10 Cannabis abuse, uncomplicated; I10 Essential (primary) hypertension; W01.0XXA Fall on same level from slipping, tripping and stumbling without subsequent striking against object, initial encounter; Y93.89 Activity, other specified; Y92.012 Bathroom of single-family (private) house as the place of occurrence of the external cause
CPT/HCPCS: 36415; 71045; 74176; 80053; 82962; 83605; 83690; 84484; 85025; 85610; 87040; 87804; 93005; 96361; 96374; 96375; 99284; J1885; J2405

== ENCOUNTER 2018-10-16 17:27 | Inpatient (IN) | payer OTHER ==
[~2018-10-16] VITALS: Ht 162.6 cm; Wt 93.7 kg
[2018-10-16] MEDS ORDERED: MORPHINE SULFATE 4 MG/ML CPJ (NOT FOR IM USE) IV STA (17:40)
[2018-10-16] MEDS ORDERED: ONDANSETRON HCL 4MG/2ML INJ IV STA (17:40)
[2018-10-16 18:36] LABS: BASOPHILS % 0.6 % (0.0-2.0); EOSINOPHILS % 1.2 % (0.0-5.0); HEMATOCRIT. 41.4 % (36.0-48.0); HEMOGLOBIN. 13.9 g/dL (12.0-16.0); LYMPHOCYTES % 20.6 % (20.0-50.0); MEAN CORPUSCULAR HEMOGLOBIN 29.4 pg (28.0-32.0); MEAN CORPUSCULAR VOLUME 87.5 fL (81.0-99.0); MEAN PLATELET VOLUME 8.5 fl (7.4-10.4); MONOCYTES % 4.8 % (2.0-8.0); NEUTROPHILS % 72.8 % (40.0-76.0); PLATELET 302 x1000/uL (130-400); RED BLOOD CELL COUNT 4.73 mill/uL (4.2-5.4); RED CELL DISTRIBUTION WIDTH 14.2 % (11.6-14.6)
[2018-10-16 18:42] LABS: CHLORIDE 101 mEq/L (98-107)
[2018-10-16 18:47] LABS: D-DIMER 0.7 mg/L FEU (<0.50); PARTIAL THROMBOPLASTIN TIME 26.4 sec (23.4-31.0)
[2018-10-16] MEDS ORDERED: MORPHINE SULFATE 4 MG/ML CPJ (NOT FOR IM USE) IV ONE (20:00)
[2018-10-16] MEDS ORDERED: METRONIDAZOLE 500 MG PREMIX 100 ML IV ONE (20:00)
[2018-10-16] MEDS ORDERED: ONDANSETRON HCL 4MG/2ML INJ IV ONE (20:00)
[2018-10-16] MEDS ORDERED: KETOROLAC 30MG/ML VIAL IV ONE (20:00)
[2018-10-16] MEDS ORDERED: PIPERACILLIN/TAZ 3.375G PREMIX 50 ML IV ONE (20:00)
[2018-10-16] MEDS ORDERED: ACETAMINOPHEN 325MG TABLET PO PRN (21:30)
[2018-10-16] MEDS ORDERED: DEXTROSE 50% WATER 50ML SYRINGE IV PRN (21:30)
[2018-10-16] MEDS ORDERED: CLONIDINE 0.1MG TABLET PO PRN (21:30)
[2018-10-16] MEDS ORDERED: MORPHINE SULFATE 4 MG/ML CPJ (NOT FOR IM USE) IV PRN (21:30)
[2018-10-16] MEDS ORDERED: HYDRALAZINE 20MG/ML VIAL IV NR (21:30)
[2018-10-16] MEDS ORDERED: ONDANSETRON HCL 4MG/2ML INJ IV PRN (21:30)
[2018-10-16 22:43] VITALS: BP 198/87
[2018-10-17] VITALS: BP 108/37
[2018-10-17 01:46] LABS: CLARITY URINE CLEAR (CLEAR); COLOR URINE YELLOW (YELLOW); KETONES URINE 2+ (NEGATIVE); LEUKOCYTE ESTERASE URINE 1+ (NEGATIVE); NITRITE URINE NEGATIVE (NEGATIVE); OCCULT BLOOD URINE NEGATIVE (NEGATIVE); PH URINE 7.5 (4.5-8.0); PROTEIN URINE 2+ (NEGATIVE); UROBILINOGEN URINE 0.2 E.U./dL (0.2-1.0)
[2018-10-17 01:57] LABS: *AMPHETAMINES SCREEN URINE NEGATIVE (NEGATIVE)
[2018-10-17 01:58] LABS: *BARBITURATES SCREEN URINE NEGATIVE (NEGATIVE); *BENZODIAZEPINES SCREEN URINE NEGATIVE (NEGATIVE); *COCAINE SCREEN URINE NEGATIVE (NEGATIVE); METHADONE URINE SCREEN NEGATIVE (NEGATIVE); OPIATES URINE SCREEN PRESUMTIVE POSITIVE (NEGATIVE); PHENCYCLIDINE URINE SCREEN NEGATIVE (NEGATIVE)
[2018-10-17 01:59] LABS: CANNABINOID URINE SCREEN PRESUMTIVE POSITIVE (NEGATIVE)
[2018-10-17 04:00] VITALS: BP 147/67
[2018-10-17 06:40] LABS: BASOPHILS % 0.2 % (0.0-2.0); EOSINOPHILS % 0.3 % (0.0-5.0); HEMOGLOBIN. 13.3 g/dL (12.0-16.0); LYMPHOCYTES % 23.7 % (20.0-50.0); MEAN CORPUSCULAR HEMOGLOBIN 29.3 pg (28.0-32.0); MEAN CORPUSCULAR VOLUME 86.3 fL (81.0-99.0); MEAN PLATELET VOLUME 8.4 fl (7.4-10.4); MONOCYTES % 6.1 % (2.0-8.0); NEUTROPHILS % 69.7 % (40.0-76.0); PLATELET 299 x1000/uL (130-400); RED BLOOD CELL COUNT 4.52 mill/uL (4.2-5.4); RED CELL DISTRIBUTION WIDTH 13.8 % (11.6-14.6)
[2018-10-17] MEDS ORDERED: BLOOD SUGAR DIAGNOSTIC STRIP TEST SCH (06:45)
[2018-10-17 06:46] LABS: CHLORIDE 102 mEq/L (98-107)
[2018-10-17] MEDS ORDERED: INSULIN LISPRO 100 UNITS/ML SUBCUT SCH (07:15)
[2018-10-17 08:00] VITALS: BP 116/60
[2018-10-17] MEDS ORDERED: CEFTRIAXONE 1 G PREMIX 50 ML IV SCH (09:00)
[2018-10-17] MEDS ORDERED: ASPIRIN 81MG TABLET PO SCH (09:00)
[2018-10-17] MEDS ORDERED: AMLODIPINE 5MG TABLET PO SCH (09:00)
[2018-10-17] MEDS ORDERED: METOPROLOL TARTRATE 25MG TABLET PO SCH (09:00)
[2018-10-17] MEDS: LISINOPRIL 10MG TABLET PO SCH ×2 (09:50)
[2018-10-17] MEDS ORDERED: LACTULOSE 20G/30ML UDC PO SCH (10:15)
[2018-10-17] MEDS ORDERED: SIMETHICONE 80MG TABLET CHEW PO PRN (10:15)
[2018-10-17 10:27] VITALS: BP 116/60
[2018-10-17 12:00] VITALS: BP 114/56
== END 2018-10-17 12:45 | disposition short-term general hospital (02) | DRG 720 ==
LOC: ER 17:33 → 5WST 19:28 → EDBEDREQTM 19:31 → EDBEDREQ 19:31 → ENRESERV 20:00
PROVIDERS: ADMIT Internal Medicine; ATTEND Internal Medicine
DX: A41.9 Sepsis, unspecified organism (principal); I24.9 Acute ischemic heart disease, unspecified; E11.9 Type 2 diabetes mellitus without complications; I10 Essential (primary) hypertension; K59.00 Constipation, unspecified; N39.0 Urinary tract infection, site not specified; I16.0 Hypertensive urgency; E66.9 Obesity, unspecified; Z71.3 Dietary counseling and surveillance; Z68.35 Body mass index [BMI] 35.0-35.9, adult
CPT/HCPCS: 36415; 71045; 74176; 80048; 80061; 80305; 82962; 83036; 83605; 83880; 84443; 84484; 85379; 93005; 93970; 96365; 96367; 96375; 96376; 99285; J0696; J1815; J1885; J2270; J2405; J2543; J3490

== ENCOUNTER 2018-10-21 05:24 | Inpatient (IN) | payer OTHER ==
[~2018-10-21] VITALS: Ht 162.6 cm; Wt 90.3 kg
[2018-10-21 06:10] LABS: BASOPHILS % 0.4 % (0.0-2.0); EOSINOPHILS % 0.5 % (0.0-5.0); HEMATOCRIT. 41.3 % (36.0-48.0); HEMOGLOBIN. 14.2 g/dL (12.0-16.0); LYMPHOCYTES % 15.8 % (20.0-50.0); MEAN CORPUSCULAR HEMOGLOBIN 29.7 pg (28.0-32.0); MEAN CORPUSCULAR VOLUME 86.6 fL (81.0-99.0); MEAN PLATELET VOLUME 8.1 fl (7.4-10.4); MONOCYTES % 3.3 % (2.0-8.0); PLATELET 349 x1000/uL (130-400); RED BLOOD CELL COUNT 4.77 mill/uL (4.2-5.4); RED CELL DISTRIBUTION WIDTH 14.5 % (11.6-14.6)
[2018-10-21 06:14] LABS: PROTHROMBIN TIME 10.4 sec (9.6-11.0)
[2018-10-21 06:15] LABS: CHLORIDE 102 mEq/L (98-107)
[2018-10-21] MEDS ORDERED: ONDANSETRON HCL 4MG/2ML INJ IV STA (06:49)
[2018-10-21] MEDS ORDERED: SODIUM CHLORIDE 0.9% 1,000 ML IV ONE (06:49)
[2018-10-21] MEDS ORDERED: LABETALOL 5MG/ML SYR 20 MG/4 ML SYRINGE IV ONE (07:45)
[2018-10-21] MEDS ORDERED: MORPHINE SULFATE 4 MG/ML CPJ (NOT FOR IM USE) IV ONE (08:15)
[2018-10-21] MEDS ORDERED: ASPIRIN 81MG TABLET PO ONE (09:15)
[2018-10-21] MEDS ORDERED: NITROGLYCERIN 0.4MG TABLET SL SL ONE (09:30)
[2018-10-21] MEDS ORDERED: ENOXAPARIN 100MG/ML SYR SUBCUT ONE (09:30)
[2018-10-21 09:47] LABS: CLARITY URINE CLEAR (CLEAR); COLOR URINE YELLOW (YELLOW); KETONES URINE 4+ (NEGATIVE); LEUKOCYTE ESTERASE URINE 2+ (NEGATIVE); NITRITE URINE NEGATIVE (NEGATIVE); OCCULT BLOOD URINE TRACE (NEGATIVE); PH URINE 6.5 (4.5-8.0); PROTEIN URINE 1+ (NEGATIVE); SPECIFIC GRAVITY URINE 1.025 (1.005-1.030); UROBILINOGEN URINE 0.2 E.U./dL (0.2-1.0)
[2018-10-21] MEDS ORDERED: DEXT 5% WATER + KCL 20MEQ/L 1,000 ML IV ONE (12:15)
[2018-10-21] MEDS ORDERED: NA PHOS,M-B/NA PHOS,DI-BA ENEMA 118ML PR PRN (13:15)
[2018-10-21] MEDS ORDERED: MAGNESIUM/ALUMINUM HYDROXIDE/SIMETHICONE 30ML UDC PO PRN (13:15)
[2018-10-21] MEDS ORDERED: IPRATROPIUM/ALBUTEROL 0.5-3(2.5)MG/3ML NEB INH PRN (13:15)
[2018-10-21] MEDS ORDERED: NITROGLYCERIN 0.4MG TABLET SL SL PRN (13:15)
[2018-10-21] MEDS ORDERED: DOCUSATE SODIUM 100MG CAPSULE PO PRN (13:15)
[2018-10-21] MEDS ORDERED: LORAZEPAM 0.5MG TABLET PO PRN (13:15)
[2018-10-21] MEDS ORDERED: GUAIFENESIN 200MG/10ML SUGAR FREE UDC PO PRN (13:15)
[2018-10-21] MEDS ORDERED: DEXTROSE 50% WATER 50ML SYRINGE IV PRN (13:15)
[2018-10-21] MEDS ORDERED: ZOLPIDEM TARTRATE 5MG TABLET PO PRN (13:15)
[2018-10-21] MEDS: KETOROLAC 15MG/ML VIAL IV PRN (17:59)
[2018-10-21] MEDS ORDERED: CEFTRIAXONE 1 G PREMIX 50 ML IV SCH (19:00)
[2018-10-21 20:00] VITALS: BP 131/68
[2018-10-21] MEDS: BLOOD SUGAR DIAGNOSTIC STRIP TEST SCH (21:12)
[2018-10-21] MEDS: SUCRALFATE 1 G/10 ML UDC PO SCH (21:27)
[2018-10-21] MEDS: INSULIN LISPRO 100 UNITS/ML SUBCUT SCH (21:27)
[2018-10-21] MEDS: CEFTRIAXONE 1 G PREMIX 50 ML IV SCH (21:28)
[2018-10-21] MEDS: FAMOTIDINE 20MG TABLET PO SCH (21:28)
[2018-10-21] MEDS: METOPROLOL TARTRATE 25MG TABLET PO SCH (21:28)
[2018-10-22] VITALS: BP 105/49
[2018-10-22] MEDS: ONDANSETRON HCL 4MG/2ML INJ IV PRN ×3 (01:33→11:23)
[2018-10-22] MEDS: KETOROLAC 15MG/ML VIAL IV PRN ×3 (01:38→19:38)
[2018-10-22 01:48] LABS: CREATINE KINASE MB FRACTION 1.8 ng/mL (0.5-3.6)
[2018-10-22 01:59] LABS: *AMPHETAMINES SCREEN URINE NEGATIVE (NEGATIVE); *BARBITURATES SCREEN URINE NEGATIVE (NEGATIVE); *BENZODIAZEPINES SCREEN URINE NEGATIVE (NEGATIVE)
[2018-10-22 02:00] LABS: *COCAINE SCREEN URINE NEGATIVE (NEGATIVE); CANNABINOID URINE SCREEN PRESUMTIVE POSITIVE (NEGATIVE); METHADONE URINE SCREEN NEGATIVE (NEGATIVE); OPIATES URINE SCREEN PRESUMTIVE POSITIVE (NEGATIVE); PHENCYCLIDINE URINE SCREEN NEGATIVE (NEGATIVE)
[2018-10-22 04:00] VITALS: BP 157/76
[2018-10-22 05:26] LABS: BASOPHILS % 0.6 % (0.0-2.0); EOSINOPHILS % 0.5 % (0.0-5.0); HEMATOCRIT. 41.2 % (36.0-48.0); LYMPHOCYTES % 17.3 % (20.0-50.0); MEAN CORPUSCULAR HEMOGLOBIN 29.7 pg (28.0-32.0); MEAN CORPUSCULAR VOLUME 87.4 fL (81.0-99.0); MEAN PLATELET VOLUME 8.1 fl (7.4-10.4); MONOCYTES % 2.7 % (2.0-8.0); NEUTROPHILS % 78.9 % (40.0-76.0); PLATELET 327 x1000/uL (130-400); RED BLOOD CELL COUNT 4.71 mill/uL (4.2-5.4); RED CELL DISTRIBUTION WIDTH 14.3 % (11.6-14.6)
[2018-10-22 05:33] LABS: CHLORIDE 99 mEq/L (98-107)
[2018-10-22 05:44] LABS: CREATINE KINASE 65 IU/L (26-192)
[2018-10-22 05:46] LABS: CREATINE KINASE MB FRACTION 1.8 ng/mL (0.5-3.6)
[2018-10-22] MEDS: CLONIDINE 0.1MG TABLET PO PRN (06:24)
[2018-10-22] MEDS: METOCLOPRAMIDE 10MG/10 ML UDC PO SCH ×2 (07:40→12:40)
[2018-10-22] MEDS: SUCRALFATE 1 G/10 ML UDC PO SCH ×4 (07:40→20:24)
[2018-10-22 08:00] VITALS: BP 189/70
[2018-10-22] MEDS: BLOOD SUGAR DIAGNOSTIC STRIP TEST SCH ×4 (08:12→20:24)
[2018-10-22] MEDS: FAMOTIDINE 20MG TABLET PO SCH ×2 (09:00→20:24)
[2018-10-22] MEDS: ASPIRIN 325MG EC TABLET PO SCH (09:00)
[2018-10-22] MEDS: METOPROLOL TARTRATE 25MG TABLET PO SCH ×2 (09:00→20:24)
[2018-10-22] MEDS: ENOXAPARIN 30MG/0.3ML SYR SUBCUT SCH ×2 (09:53→20:24)
[2018-10-22] MEDS: INSULIN LISPRO 100 UNITS/ML SUBCUT SCH ×4 (10:05→20:25)
[2018-10-22] MEDS ORDERED: HYDRALAZINE 20MG/ML VIAL IV PRN (10:45)
[2018-10-22] MEDS ORDERED: ENALAPRIL 2.5MG/2ML VIAL 2ML IV PRN (10:45)
[2018-10-22] MEDS ORDERED: ENALAPRIL 2.5MG/2ML VIAL 2ML IV NR (10:45)
[2018-10-22 12:00] VITALS: BP 136/95
[2018-10-22] MEDS ORDERED: CLONIDINE HCL 0.3MG/24HR PATCH TD SCH (12:00)
[2018-10-22] MEDS: NITROGLYCERIN 0.4MG/HR PATCH TOP SCH (12:00)
[2018-10-22 16:00] VITALS: BP 141/77
[2018-10-22] MEDS: METOCLOPRAMIDE HCL 10MG/2ML VIAL IV SCH ×2 (17:34→23:32)
[2018-10-22] MEDS: ACETAMINOPHEN 325MG TABLET PO PRN ×2 (19:07→19:38)
[2018-10-22 20:00] VITALS: BP 156/83
[2018-10-22] MEDS: CEFTRIAXONE 1 G PREMIX 50 ML IV SCH (20:25)
[2018-10-23] VITALS: BP 159/71
[2018-10-23] MEDS: KETOROLAC 15MG/ML VIAL IV PRN ×2 (01:38→09:34)
[2018-10-23 04:00] VITALS: BP 168/74
[2018-10-23] MEDS: METOCLOPRAMIDE HCL 10MG/2ML VIAL IV SCH (04:56)
[2018-10-23] MEDS: CLONIDINE 0.1MG TABLET PO PRN (04:56)
[2018-10-23] MEDS: BLOOD SUGAR DIAGNOSTIC STRIP TEST SCH (07:40)
[2018-10-23 08:00] VITALS: BP 113/60
[2018-10-23] MEDS: SUCRALFATE 1 G/10 ML UDC PO SCH (09:15)
[2018-10-23] MEDS: FAMOTIDINE 20MG TABLET PO SCH (09:16)
[2018-10-23] MEDS: ASPIRIN 325MG EC TABLET PO SCH (09:16)
[2018-10-23] MEDS: METOPROLOL TARTRATE 25MG TABLET PO SCH (09:16)
[2018-10-23] MEDS: ENOXAPARIN 30MG/0.3ML SYR SUBCUT SCH (09:17)
[2018-10-23] MEDS: INSULIN LISPRO 100 UNITS/ML SUBCUT SCH (09:18)
[2018-10-23] MEDS: NITROGLYCERIN 0.4MG/HR PATCH TOP SCH (09:30)
[2018-10-23 10:34] VITALS: BP 113/60
== END 2018-10-23 11:37 | disposition home or self-care (01) | DRG 48 ==
LOC: ER 05:51 → EDBEDREQ 09:19 → 7WST 09:28 → EDBEDREQ 09:30 → EDBEDREQTM 09:30 → ENRESERV 14:54
PROVIDERS: ADMIT Internal Medicine; ATTEND Internal Medicine
DX: E11.43 Type 2 diabetes mellitus with diabetic autonomic (poly)neuropathy (principal); E43 Unspecified severe protein-calorie malnutrition; I50.9 Heart failure, unspecified; I11.0 Hypertensive heart disease with heart failure; E86.0 Dehydration; K31.84 Gastroparesis; M19.90 Unspecified osteoarthritis, unspecified site; E11.65 Type 2 diabetes mellitus with hyperglycemia; E66.09 Other obesity due to excess calories; E87.6 Hypokalemia; I16.1 Hypertensive emergency; N39.0 Urinary tract infection, site not specified; Z79.4 Long term (current) use of insulin; Z87.891 Personal history of nicotine dependence; Z68.34 Body mass index [BMI] 34.0-34.9, adult
CPT/HCPCS: 36415; 71045; 80048; 80061; 80305; 82550; 82553; 82962; 83036; 83605; 83880; 84484; 93005; 93306; 93970; 96361; 96372; 96374; 96375; 99285; J0360; J0696; J1650; J1815; J1885; J2270; J2405; J2765; J3490; J7030; J7040; J7060; J8597

== ENCOUNTER 2019-04-19 02:31 | Inpatient (IN) | payer OTHER ==
[~2019-04-19] VITALS: Ht 162.6 cm; Wt 99.5 kg
[2019-04-19] VITALS (21 sets, daily range): BP systolic 92–168; BP diastolic 34–92
[2019-04-19] MEDS ORDERED: SODIUM CHLORIDE 0.9% 1,000 ML IV ONE ×2 (03:45→05:01)
[2019-04-19] MEDS ORDERED: FAMOTIDINE 20MG/2ML VIAL IV STA (03:50)
[2019-04-19 03:58] LABS: BASOPHILS % 0.5 % (0.0-2.0); HEMATOCRIT. 49.1 % (36.0-48.0); HEMOGLOBIN. 16.3 g/dL (12.0-16.0); LYMPHOCYTES % 10.6 % (20.0-50.0); MEAN CORPUSCULAR HEMOGLOBIN 30.1 pg (28.0-32.0); MEAN CORPUSCULAR VOLUME 90.2 fL (81.0-99.0); MEAN PLATELET VOLUME 8.7 fl (7.4-10.4); MONOCYTES % 3.3 % (2.0-8.0); NEUTROPHILS % 85.6 % (40.0-76.0); PLATELET 350 x1000/uL (130-400); RED BLOOD CELL COUNT 5.44 mill/uL (4.2-5.4); RED CELL DISTRIBUTION WIDTH 14.9 % (11.6-14.6)
[2019-04-19 04:06] LABS: CHLORIDE 103 mEq/L (98-107); PROTHROMBIN TIME 10.2 sec (9.6-11.0)
[2019-04-19 04:22] LABS: CLARITY URINE CLEAR (CLEAR); COLOR URINE YELLOW (YELLOW); KETONES URINE 4+ (NEGATIVE); LEUKOCYTE ESTERASE URINE NEGATIVE (NEGATIVE); NITRITE URINE NEGATIVE (NEGATIVE); OCCULT BLOOD URINE TRACE (NEGATIVE); PROTEIN URINE 3+ (NEGATIVE); UROBILINOGEN URINE 0.2 E.U./dL (0.2-1.0)
[2019-04-19] MEDS ORDERED: INSULIN REGULAR (HUMULIN R) 300UNITS/3ML SUBCUT ONE (05:15)
[2019-04-19] MEDS ORDERED: ONDANSETRON HCL 4MG/2ML INJ IV ONE (05:30)
[2019-04-19] MEDS ORDERED: ONDANSETRON HCL 4MG/2ML INJ ONE (05:31)
[2019-04-19 05:42] LABS: BG BASE EXCESS -5.2 mmol/L (-2.0-2.0); BG CARBOXYHEMOGLOBIN 0.6 % (0.5-1.5); BG DEOXYHEMOGLOBIN 2.7 % (0.0-5.0); BG FRACTION INSPIRED OXYGEN 21; BG HCO3 ACT 18.6 mmol/L (22.0-26.0); BG METHEMOGLOBIN 0.2 % (0.0-1.5); BG OXYGEN SATURATION 97.3 % (92.0-98.5); BG OXYHEMOGLOBIN 96.5 % (94.0-97.0); BG PCO2 31.8 mmHg (35.0-45.0); BG PH 7.384 (7.350-7.450); BG PO2 91.3 mmHg (75.0-100.0); BG SAMPLE SITE RIGHT RADIAL; BG TOTAL HEMOGLOBIN 16.6 g/dL (12.0-18.0); BG VENT MODE ROOM AIR
[2019-04-19] MEDS ORDERED: MORPHINE SULFATE 4 MG/ML CPJ (NOT FOR IM USE) IV ONE (05:45)
[2019-04-19] MEDS ORDERED: POTASSIUM CHLORIDE 20MEQ TABLET SR PO SCH (06:00)
[2019-04-19] MEDS ORDERED: INSULIN REGULAR (DRIP) 100 UNITS in SODIUM CHLORIDE 0.9% 99 ML IV SCH ×2 (06:00→11:00)
[2019-04-19] MEDS ORDERED: KETOROLAC 30MG/ML VIAL IV PRN (10:00)
[2019-04-19] MEDS: SODIUM CHLORIDE 0.9% 1,000 ML IV SCH ×2 (10:16→15:11)
[2019-04-19] MEDS ORDERED: DEXTROSE 50% WATER 50ML SYRINGE IV PRN ×3 (11:00→15:30)
[2019-04-19] MEDS ORDERED: ONDANSETRON HCL 4MG/2ML INJ IV PRN ×2 (11:30→15:30)
[2019-04-19] MEDS: BLOOD SUGAR DIAGNOSTIC STRIP TEST SCH ×8 (11:48→20:42)
[2019-04-19] MEDS: LORAZEPAM 2MG/ML CPJ IV PRN (12:07)
[2019-04-19 13:30] LABS: CHLORIDE 116 mEq/L (98-107)
[2019-04-19 13:36] LABS: PHOSPHORUS 1.8 mg/dL (2.5-4.9)
[2019-04-19] MEDS ORDERED: SITA100T11 MT (15:08)
[2019-04-19] MEDS ORDERED: HAL5 MT (15:08)
[2019-04-19] MEDS ORDERED: AMLO5TAB88 PO (15:08)
[2019-04-19] MEDS ORDERED: FAMO20TA8 PO (15:08)
[2019-04-19] MEDS ORDERED: ASPI-1393 PO (15:08)
[2019-04-19] MEDS ORDERED: [UNRECOGNIZED DRUG - CODE] MC (15:08)
[2019-04-19] MEDS ORDERED: SERT50TA12 PO (15:08)
[2019-04-19] MEDS ORDERED: ACETAMINOPHEN 325MG TABLET PO PRN (15:30)
[2019-04-19] MEDS ORDERED: CLONIDINE 0.1MG TABLET PO PRN (15:30)
[2019-04-19] MEDS ORDERED: DIPHENHYDRAMINE 50MG/ML VIAL IV PRN (15:30)
[2019-04-19] MEDS: SODIUM CHLORIDE 0.45% 1,000 ML IV SCH (16:12)
[2019-04-19] MEDS ORDERED: POTASSIUM PHOS,M-BASIC-D-BASIC 20 MMOL in DEXT 5% WATER 243.3333 ML IV NR (17:00)
[2019-04-19] MEDS ORDERED: MAGNESIUM 1 G PREMIX 100 ML IV NR (17:00)
[2019-04-19] MEDS: INSULIN LISPRO 100 UNITS/ML SUBCUT SCH ×2 (17:32→20:43)
[2019-04-19] MEDS: FAMOTIDINE 20MG/2ML VIAL IV SCH (20:40)
[2019-04-19] MEDS: HALOPERIDOL 5MG TABLET PO SCH (20:40)
[2019-04-19] MEDS: ENOXAPARIN 30MG/0.3ML SYR SUBCUT SCH (20:41)
[2019-04-19] MEDS ORDERED: INSULIN GLARGINE UD 100 UNITS/ML SYR SUBCUT SCH (22:00)
[2019-04-20] VITALS (20 sets, daily range): BP systolic 108–206; BP diastolic 64–151
[2019-04-20] MEDS: SODIUM CHLORIDE 0.45% 1,000 ML IV SCH ×2 (01:12→11:51)
[2019-04-20] MEDS: LORAZEPAM 2MG/ML CPJ IV PRN (02:43)
[2019-04-20] MEDS ORDERED: HYDRALAZINE 20MG/ML VIAL IV PRN (03:30)
[2019-04-20 05:39] LABS: BASOPHILS % 0.8 % (0.0-2.0); EOSINOPHILS % 0.4 % (0.0-5.0); HEMATOCRIT. 41.6 % (36.0-48.0); LYMPHOCYTES % 28.6 % (20.0-50.0); MEAN CORPUSCULAR HEMOGLOBIN 30.1 pg (28.0-32.0); MEAN CORPUSCULAR VOLUME 89.9 fL (81.0-99.0); MONOCYTES % 5.6 % (2.0-8.0); NEUTROPHILS % 64.6 % (40.0-76.0); PLATELET 249 x1000/uL (130-400); RED BLOOD CELL COUNT 4.63 mill/uL (4.2-5.4); RED CELL DISTRIBUTION WIDTH 14.7 % (11.6-14.6)
[2019-04-20 05:50] LABS: CHLORIDE 108 mEq/L (98-107)
[2019-04-20 05:59] LABS: PHOSPHORUS 2.1 mg/dL (2.5-4.9)
[2019-04-20] MEDS: BLOOD SUGAR DIAGNOSTIC STRIP TEST SCH ×4 (06:41→20:16)
[2019-04-20] MEDS: INSULIN LISPRO 100 UNITS/ML SUBCUT SCH ×4 (07:18→20:40)
[2019-04-20] MEDS: FAMOTIDINE 20MG/2ML VIAL IV SCH ×2 (08:57→20:32)
[2019-04-20] MEDS: ENOXAPARIN 30MG/0.3ML SYR SUBCUT SCH ×2 (08:57→20:32)
[2019-04-20] MEDS: SERTRALINE HCL 50MG TABLET PO SCH (08:57)
[2019-04-20] MEDS ORDERED: POTASSIUM CHLORIDE 20MEQ TABLET SR PO NR (16:30)
[2019-04-20] MEDS ORDERED: INSULIN GLARGINE UD 100 UNITS/ML SYR SUBCUT SCH (22:00)
[2019-04-20] MEDS: HALOPERIDOL 5MG TABLET PO SCH (22:25)
[2019-04-21] VITALS: BP 141/69
[2019-04-21 04:00] VITALS: BP 139/63
[2019-04-21] MEDS: BLOOD SUGAR DIAGNOSTIC STRIP TEST SCH ×3 (06:17→17:32)
[2019-04-21] MEDS: INSULIN LISPRO 100 UNITS/ML SUBCUT SCH ×3 (06:26→17:32)
[2019-04-21 07:50] LABS: BASOPHILS % 0.6 % (0.0-2.0); EOSINOPHILS % 1.7 % (0.0-5.0); HEMATOCRIT. 41.6 % (36.0-48.0); HEMOGLOBIN. 14.2 g/dL (12.0-16.0); LYMPHOCYTES % 36.7 % (20.0-50.0); MEAN CORPUSCULAR HEMOGLOBIN 30.3 pg (28.0-32.0); MEAN CORPUSCULAR VOLUME 89.1 fL (81.0-99.0); MEAN PLATELET VOLUME 8.8 fl (7.4-10.4); MONOCYTES % 6.7 % (2.0-8.0); NEUTROPHILS % 54.3 % (40.0-76.0); PLATELET 254 x1000/uL (130-400); RED BLOOD CELL COUNT 4.67 mill/uL (4.2-5.4); RED CELL DISTRIBUTION WIDTH 14.1 % (11.6-14.6)
[2019-04-21 07:51] LABS: CHLORIDE 104 mEq/L (98-107)
[2019-04-21 08:00] VITALS: BP 133/73
[2019-04-21 08:18] LABS: PHOSPHORUS 2.9 mg/dL (2.5-4.9)
[2019-04-21] MEDS: FAMOTIDINE 20MG/2ML VIAL IV SCH (08:42)
[2019-04-21] MEDS: SERTRALINE HCL 50MG TABLET PO SCH (08:42)
[2019-04-21] MEDS: ENOXAPARIN 30MG/0.3ML SYR SUBCUT SCH (08:43)
[2019-04-21 12:00] VITALS: BP 138/55
[2019-04-21] MEDS ORDERED: POTASSIUM CHLORIDE 20MEQ TABLET SR PO NR (13:00)
[2019-04-21] MEDS ORDERED: POTASSIUM CHLORIDE 20MEQ/PACKET PO NR ×2 (13:00→17:00)
[2019-04-21] MEDS ORDERED: MAGNESIUM 2 G PREMIX 50 ML IV NR (15:30)
[2019-04-21 16:00] VITALS: BP 140/56
[2019-04-21 17:16] VITALS: BP 140/56
== END 2019-04-21 20:28 | disposition home or self-care (01) | DRG 420 ==
LOC: ER 02:31 → CVICU 06:08 → ENRESERV 07:29 → 5WST 04-20 05:26
PROVIDERS: ADMIT Internal Medicine; ATTEND Internal Medicine
DX: E11.10 Type 2 diabetes mellitus with ketoacidosis without coma (principal); G93.41 Metabolic encephalopathy; E66.01 Morbid (severe) obesity due to excess calories; E83.39 Other disorders of phosphorus metabolism; E83.42 Hypomagnesemia; E87.6 Hypokalemia; F32.9 Major depressive disorder, single episode, unspecified; M19.90 Unspecified osteoarthritis, unspecified site; I10 Essential (primary) hypertension; J45.909 Unspecified asthma, uncomplicated; Z83.3 Family history of diabetes mellitus; Z79.899 Other long term (current) drug therapy; Z79.82 Long term (current) use of aspirin; Z68.37 Body mass index [BMI] 37.0-37.9, adult
CPT/HCPCS: 36415; 36600; 80048; 81003; 82010; 82375; 82805; 82962; 83036; 83735; 84100; 93970; 99285; J1630; J1650; J1815; J2060; J2270; J2405; J3475; J3490; J7030; J7050; J7060

== ENCOUNTER 2019-05-26 18:29 | Emergency (ER) | payer OTHER ==
[~2019-05-26] VITALS: Ht 165.1 cm; Wt 82.0 kg
[~2019-05-26 18:29] MED LIST changes: +AMLO5TAB88 PO; +ASPI-1393 PO; +FAMO20TA8 PO; +HAL5 MT; +SERT50TA12 PO; +SITA100T11 MT; +[UNRECOGNIZED DRUG - CODE] MC
[2019-05-26] MEDS ORDERED: FAMOTIDINE 20MG/2ML VIAL IV STA (19:21)
[2019-05-26] MEDS ORDERED: ONDANSETRON HCL 4MG/2ML INJ IV STA ×2 (19:21→21:10)
[2019-05-26] MEDS ORDERED: MAGNESIUM/ALUMINUM HYDROXIDE/SIMETHICONE 30ML UDC PO STA (19:21)
[2019-05-26] MEDS ORDERED: SODIUM CHLORIDE 0.9% 1,000 ML IV ONE ×2 (19:21→21:10)
[2019-05-26 21:06] LABS: BASOPHILS % 0.3 % (0.0-2.0); EOSINOPHILS % 0.3 % (0.0-5.0); HEMATOCRIT. 45.4 % (36.0-48.0); HEMOGLOBIN. 15.3 g/dL (12.0-16.0); LYMPHOCYTES % 15.2 % (20.0-50.0); MEAN CORPUSCULAR HEMOGLOBIN 29.8 pg (28.0-32.0); MEAN CORPUSCULAR VOLUME 88.3 fL (81.0-99.0); MEAN PLATELET VOLUME 8.5 fl (7.4-10.4); MONOCYTES % 2.8 % (2.0-8.0); NEUTROPHILS % 81.4 % (40.0-76.0); PLATELET 337 x1000/uL (130-400); RED BLOOD CELL COUNT 5.14 mill/uL (4.2-5.4); RED CELL DISTRIBUTION WIDTH 14.3 % (11.6-14.6)
[2019-05-26 21:09] LABS: CHLORIDE 104 mEq/L (98-107)
[2019-05-26 21:10] LABS: INR 0.9; PROTHROMBIN TIME 9.8 sec (9.6-11.0)
[2019-05-26] MEDS ORDERED: MORPHINE SULFATE 4 MG/ML CPJ (NOT FOR IM USE) IV STA (21:10)
[2019-05-26 21:12] LABS: ETHANOL BLOOD < 10 mg/dL
[2019-05-26] MEDS ORDERED: MORPHINE SULFATE 4 MG/ML CPJ (NOT FOR IM USE) IV ONE (23:00)
[2019-05-26 23:15] LABS: CLARITY URINE CLEAR (CLEAR); COLOR URINE YELLOW (YELLOW); KETONES URINE 3+ (NEGATIVE); LEUKOCYTE ESTERASE URINE TRACE (NEGATIVE); NITRITE URINE NEGATIVE (NEGATIVE); OCCULT BLOOD URINE NEGATIVE (NEGATIVE); PROTEIN URINE 1+ (NEGATIVE); SPECIFIC GRAVITY URINE 1.022 (1.005-1.030); UROBILINOGEN URINE 0.2 E.U./dL (0.2-1.0)
[2019-05-26] MEDS ORDERED: ONDANSETRON HCL 4MG/2ML INJ IV ONE (23:15)
[2019-05-27] MEDS ORDERED: METRONIDAZOLE 500 MG PREMIX 100 ML IV ONE (00:30)
[2019-05-27] MEDS ORDERED: PIPERACILLIN/TAZ 3.375G PREMIX 50 ML IV ONE (00:30)
[2019-05-27 05:26] VITALS: BP 148/65
[2019-05-27 08:38] LABS: *AMPHETAMINES SCREEN URINE NEGATIVE (NEGATIVE); *BARBITURATES SCREEN URINE NEGATIVE (NEGATIVE); *BENZODIAZEPINES SCREEN URINE NEGATIVE (NEGATIVE)
[2019-05-27 08:39] LABS: *COCAINE SCREEN URINE NEGATIVE (NEGATIVE); CANNABINOID URINE SCREEN PRESUMTIVE POSITIVE (NEGATIVE); METHADONE URINE SCREEN NEGATIVE (NEGATIVE); OPIATES URINE SCREEN NEGATIVE (NEGATIVE); PHENCYCLIDINE URINE SCREEN NEGATIVE (NEGATIVE)
== END 2019-05-27 05:32 | disposition short-term general hospital (02) ==
LOC: ER 18:29 → EDBEDREQ 21:15 → ER 05-27 05:32 → CANBEDREQ 05-27 06:28
DX: D72.829 Elevated white blood cell count, unspecified (principal); R19.7 Diarrhea, unspecified; R11.2 Nausea with vomiting, unspecified; R10.9 Unspecified abdominal pain
CPT/HCPCS: 36415; 71045; 74176; 80053; 80305; 80320; 81003; 83605; 83690; 83880; 84484; 85025; 85610; 87040; 87086; 93005; 96361; 96365; 96366; 96375; 96376; 99285; J2270; J2405; J2543; J3490; J7030; J7040; Z7610; G0480

== ENCOUNTER → 2019-06-09 | Emergency (ER) | payer OTHER ==
[~2019-06-09] VITALS: Ht 162.6 cm; Wt 103.0 kg
[~2019-06-09] MED LIST changes: +FAMOTIDINE 20MG/2ML VIAL IV ONE; +HYDRALAZINE 20MG/ML VIAL IV ONE; +LEVOFLOXACIN 750MG PREMIX 150 ML IV ONE; +MORPHINE SULFATE 4 MG/ML CPJ (NOT FOR IM USE) IV STA; +ONDANSETRON HCL 4MG/2ML INJ IV STA; +SODIUM CHLORIDE 0.9% 1,000 ML IV ONE; +SODIUM CHLORIDE 0.9% 1000ML BAG (SEPSIS BOLUS) IV ONE
[2019-06-09 08:31] LABS: CHLORIDE 101 mEq/L (98-107)
[2019-06-09 08:33] LABS: BASOPHILS % 0.3 % (0.0-2.0); HEMATOCRIT. 48.8 % (36.0-48.0); HEMOGLOBIN. 16.3 g/dL (12.0-16.0); LYMPHOCYTES % 8.3 % (20.0-50.0); MEAN CORPUSCULAR HEMOGLOBIN 29.6 pg (28.0-32.0); MEAN CORPUSCULAR VOLUME 88.9 fL (81.0-99.0); MEAN PLATELET VOLUME 8.8 fl (7.4-10.4); MONOCYTES % 2.5 % (2.0-8.0); NEUTROPHILS % 88.9 % (40.0-76.0); PLATELET 420 x1000/uL (130-400); RED CELL DISTRIBUTION WIDTH 13.8 % (11.6-14.6)
[2019-06-09 09:40] LABS: CLARITY URINE CLOUDY (CLEAR); COLOR URINE YELLOW (YELLOW); KETONES URINE 3+ (NEGATIVE); LEUKOCYTE ESTERASE URINE NEGATIVE (NEGATIVE); NITRITE URINE NEGATIVE (NEGATIVE); OCCULT BLOOD URINE 1+ (NEGATIVE); PH URINE 5.5 (4.5-8.0); PROTEIN URINE 4+ (NEGATIVE); SPECIFIC GRAVITY URINE 1.039 (1.005-1.030); UROBILINOGEN URINE 0.2 E.U./dL (0.2-1.0)
[2019-06-09 16:18] VITALS: BP 138/76
== END | disposition short-term general hospital (02) ==
LOC: ER 07:34 → EDBEDREQ 10:43 → CANBEDREQ 06-10 03:23
DX: R10.84 Generalized abdominal pain (principal); N39.0 Urinary tract infection, site not specified; E11.65 Type 2 diabetes mellitus with hyperglycemia; D72.819 Decreased white blood cell count, unspecified; R11.10 Vomiting, unspecified; I10 Essential (primary) hypertension; F32.9 Major depressive disorder, single episode, unspecified; E66.9 Obesity, unspecified; Z68.39 Body mass index [BMI] 39.0-39.9, adult
CPT/HCPCS: 36415; 71045; 74176; 80053; 81003; 82962; 83605; 83690; 85025; 87040; 93005; 96361; 96365; 96375; 96376; 99285; J1956; J2270; J2405; J3490; J7030

== ENCOUNTER 2019-07-18 09:43 | Emergency (ER) | payer OTHER ==
[~2019-07-18] VITALS: Ht 167.6 cm; Wt 103.0 kg
[~2019-07-18 09:43] MED LIST changes: -FAMOTIDINE 20MG/2ML VIAL IV ONE; -HYDRALAZINE 20MG/ML VIAL IV ONE; -LEVOFLOXACIN 750MG PREMIX 150 ML IV ONE; -MORPHINE SULFATE 4 MG/ML CPJ (NOT FOR IM USE) IV STA; -ONDANSETRON HCL 4MG/2ML INJ IV STA; -SODIUM CHLORIDE 0.9% 1,000 ML IV ONE; -SODIUM CHLORIDE 0.9% 1000ML BAG (SEPSIS BOLUS) IV ONE
[2019-07-18] MEDS ORDERED: ONDANSETRON 4MG ODT PO STA (13:44)
[2019-07-18 15:04] LABS: BASOPHILS % 0.6 % (0.0-2.0); EOSINOPHILS % 0.1 % (0.0-5.0); HEMATOCRIT. 44.5 % (36.0-48.0); HEMOGLOBIN. 15.1 g/dL (12.0-16.0); LYMPHOCYTES % 9.2 % (20.0-50.0); MEAN CORPUSCULAR HEMOGLOBIN 29.6 pg (28.0-32.0); MEAN CORPUSCULAR VOLUME 87.3 fL (81.0-99.0); MEAN PLATELET VOLUME 8.1 fl (7.4-10.4); MONOCYTES % 1.6 % (2.0-8.0); NEUTROPHILS % 88.5 % (40.0-76.0); PLATELET 349 x1000/uL (130-400); RED BLOOD CELL COUNT 5.09 mill/uL (4.2-5.4); RED CELL DISTRIBUTION WIDTH 13.9 % (11.6-14.6)
[2019-07-18 15:10] LABS: CHLORIDE 106 mEq/L (98-107)
[2019-07-18 15:12] LABS: PROTHROMBIN TIME 10.2 sec (9.6-11.0)
[2019-07-18] MEDS ORDERED: VISCOUS LIDOCAINE 2% 15 ML UDC PO NR (17:06)
[2019-07-18] MEDS ORDERED: FAMOTIDINE 20MG/2ML VIAL IV NR (17:06)
[2019-07-18] MEDS ORDERED: ONDANSETRON HCL 4MG/2ML INJ IV NR (17:06)
[2019-07-18] MEDS ORDERED: MAGNESIUM/ALUMINUM HYDROXIDE/SIMETHICONE 30ML UDC PO NR (17:06)
[2019-07-18] MEDS ORDERED: SODIUM CHLORIDE 0.9% 1,000 ML IV ONE (17:30)
[2019-07-18 20:48] LABS: CLARITY URINE CLEAR (CLEAR); COLOR URINE YELLOW (YELLOW); KETONES URINE 2+ (NEGATIVE); LEUKOCYTE ESTERASE URINE NEGATIVE (NEGATIVE); NITRITE URINE NEGATIVE (NEGATIVE); OCCULT BLOOD URINE NEGATIVE (NEGATIVE); PROTEIN URINE 2+ (NEGATIVE); SPECIFIC GRAVITY URINE 1.018 (1.005-1.030); UROBILINOGEN URINE 0.2 E.U./dL (0.2-1.0)
[2019-07-18] MEDS ORDERED: MORPHINE SULFATE 4 MG/ML CPJ (NOT FOR IM USE) IV ONE (21:30)
[2019-07-18] MEDS ORDERED: DICYCLOMINE HCL 10MG/ML 2ML AMP IM ONE (21:30)
[2019-07-18] MEDS ORDERED: ONDANSETRON HCL 4MG/2ML INJ IV ONE (21:30)
[2019-07-18 22:31] VITALS: BP 151/79
== END 2019-07-18 22:32 | disposition home or self-care (01) ==
LOC: ER 09:43
DX: A08.4 Viral intestinal infection, unspecified (principal); E11.65 Type 2 diabetes mellitus with hyperglycemia; I10 Essential (primary) hypertension; Z79.84 Long term (current) use of oral hypoglycemic drugs
CPT/HCPCS: 36415; 74176; 80053; 81003; 83605; 83690; 85025; 85610; 87804; 96361; 96372; 96374; 96375; 96376; 99284; J0500; J2270; J2405; J3490; Q0162; Z7610

== ENCOUNTER 2019-08-23 10:30 | Inpatient (IN) | payer MEDICAID, OTHER ==
[~2019-08-23] VITALS: Ht 162.6 cm; Wt 86.2 kg
[~2019-08-23 10:30] MED LIST changes: -ASPI-1393 PO; +ASPI-1497 PO
[2019-08-23] MEDS ORDERED: ONDANSETRON HCL 4MG/2ML INJ IV STA (11:27)
[2019-08-23] MEDS ORDERED: MORPHINE SULFATE 4 MG/ML CPJ (NOT FOR IM USE) IV STA (11:27)
[2019-08-23] MEDS ORDERED: SODIUM CHLORIDE 0.9% 1,000 ML IV ONE (11:27)
[2019-08-23 12:03] LABS: BASOPHILS % 0.6 % (0.0-2.0); HEMATOCRIT. 48.3 % (36.0-48.0); HEMOGLOBIN. 16.2 g/dL (12.0-16.0); LYMPHOCYTES % 13.6 % (20.0-50.0); MEAN CORPUSCULAR HEMOGLOBIN 29.1 pg (28.0-32.0); MEAN CORPUSCULAR VOLUME 87.2 fL (81.0-99.0); MONOCYTES % 6.9 % (2.0-8.0); NEUTROPHILS % 78.9 % (40.0-76.0); PLATELET 412 x1000/uL (130-400); RED BLOOD CELL COUNT 5.55 mill/uL (4.2-5.4); RED CELL DISTRIBUTION WIDTH 14.2 % (11.6-14.6)
[2019-08-23 12:10] LABS: CHLORIDE 102 mEq/L (98-107)
[2019-08-23 12:16] LABS: PROTHROMBIN TIME 10.8 sec (9.6-11.0)
[2019-08-23 13:01] LABS: CLARITY URINE CLOUDY (CLEAR); COLOR URINE DARK YELLOW (YELLOW); KETONES URINE 2+ (NEGATIVE); LEUKOCYTE ESTERASE URINE NEGATIVE (NEGATIVE); NITRITE URINE NEGATIVE (NEGATIVE); OCCULT BLOOD URINE TRACE (NEGATIVE); PH URINE 5.5 (4.5-8.0); PROTEIN URINE 4+ (NEGATIVE)
[2019-08-23] MEDS: METOCLOPRAMIDE HCL 10MG/2ML VIAL IV ONE ×2 (14:00→14:30)
[2019-08-23] MEDS ORDERED: MORPHINE SULFATE 4 MG/ML CPJ (NOT FOR IM USE) IV ONE (14:15)
[2019-08-23] MEDS ORDERED: ACETAMINOPHEN 325MG TABLET PO PRN (15:15)
[2019-08-23] MEDS ORDERED: DIPHENHYDRAMINE 50MG/ML VIAL IV PRN (15:15)
[2019-08-23] MEDS ORDERED: CLONIDINE 0.1MG TABLET PO PRN (15:15)
[2019-08-23] MEDS ORDERED: IPRATROPIUM/ALBUTEROL 0.5-3(2.5)MG/3ML NEB HHN PRN (15:15)
[2019-08-23] MEDS ORDERED: ONDANSETRON HCL 4MG/2ML INJ IV PRN (15:15)
[2019-08-23] MEDS: PANTOPRAZOLE SODIUM 40 MG/VIAL IV SCH (16:56)
[2019-08-23] MEDS: SODIUM CHLORIDE 0.9% 1,000 ML IV SCH (16:56)
[2019-08-23] MEDS: BLOOD SUGAR DIAGNOSTIC STRIP TEST SCH ×2 (19:52→21:53)
[2019-08-23] MEDS ORDERED: DEXTROSE 50% WATER 50ML SYRINGE IV PRN (20:00)
[2019-08-23] MEDS: INSULIN LISPRO (MEDIUM DOSE) 100 UNITS/ML SUBCUT SCH ×2 (20:13→21:00)
[2019-08-23 21:30] VITALS: BP 143/63
[2019-08-23] MEDS: HALOPERIDOL 5MG TABLET PO SCH (22:28)
[2019-08-23] MEDS: AMLODIPINE 5MG TABLET PO SCH (22:28)
[2019-08-23] MEDS: MORPHINE SULFATE 2 MG/ML CPJ (NOT FOR IM USE) IV PRN (22:29)
[2019-08-23 22:37] VITALS: BP 143/63
[2019-08-23] MEDS ORDERED: IOHEXOL-300 100 ML BOTTLE ONE (22:40)
[2019-08-24] VITALS: BP 114/45
[2019-08-24] MEDS: METOCLOPRAMIDE HCL 10MG/2ML VIAL IV SCH ×5 (00:03→23:26)
[2019-08-24 04:00] VITALS: BP 100/66
[2019-08-24 07:01] LABS: BASOPHILS % 0.6 % (0.0-2.0); EOSINOPHILS % 0.9 % (0.0-5.0); HEMATOCRIT. 43.7 % (36.0-48.0); HEMOGLOBIN. 14.4 g/dL (12.0-16.0); MEAN CORPUSCULAR HEMOGLOBIN 28.9 pg (28.0-32.0); MEAN CORPUSCULAR VOLUME 87.5 fL (81.0-99.0); MEAN PLATELET VOLUME 7.9 fl (7.4-10.4); MONOCYTES % 6.8 % (2.0-8.0); NEUTROPHILS % 56.7 % (40.0-76.0); PLATELET 320 x1000/uL (130-400); RED CELL DISTRIBUTION WIDTH 14.3 % (11.6-14.6)
[2019-08-24] MEDS: BLOOD SUGAR DIAGNOSTIC STRIP TEST SCH ×4 (07:40→20:39)
[2019-08-24 08:00] VITALS: BP 105/51
[2019-08-24] MEDS: AMLODIPINE 5MG TABLET PO SCH ×2 (08:14→20:39)
[2019-08-24] MEDS: PANTOPRAZOLE SODIUM 40 MG/VIAL IV SCH (08:14)
[2019-08-24] MEDS: ASPIRIN 81MG EC TABLET PO SCH (08:14)
[2019-08-24] MEDS: SERTRALINE HCL 50MG TABLET PO SCH (08:14)
[2019-08-24 08:17] LABS: CHLORIDE 106 mEq/L (98-107)
[2019-08-24] MEDS: INSULIN LISPRO (MEDIUM DOSE) 100 UNITS/ML SUBCUT SCH ×4 (08:19→20:39)
[2019-08-24 09:12] LABS: HDL CHOLESTEROL 30 mg/dL (40-59)
[2019-08-24 09:14] LABS: LDL CHOLESTEROL 84 mg/dL (5-100)
[2019-08-24] MEDS: MORPHINE SULFATE 2 MG/ML CPJ (NOT FOR IM USE) IV PRN ×2 (09:35→23:35)
[2019-08-24 12:00] VITALS: BP 123/66
[2019-08-24] MEDS: CEFTRIAXONE 1 G PREMIX 50 ML IV SCH (12:39)
[2019-08-24] MEDS: SODIUM CHLORIDE 0.9% 1,000 ML IV SCH (12:46)
[2019-08-24 16:00] VITALS: BP 120/74
[2019-08-24] MEDS ORDERED: POTASSIUM CHLORIDE 20MEQ/PACKET PO NR (17:45)
[2019-08-24 20:00] VITALS: BP 118/55
[2019-08-24] MEDS: HALOPERIDOL 5MG TABLET PO SCH (20:39)
[2019-08-25] VITALS: BP 122/48
[2019-08-25 04:00] VITALS: BP 148/62
[2019-08-25] MEDS: METOCLOPRAMIDE HCL 10MG/2ML VIAL IV SCH ×2 (06:14→11:46)
[2019-08-25 06:32] LABS: EOSINOPHILS % 2.2 % (0.0-5.0); HEMATOCRIT. 42.5 % (36.0-48.0); HEMOGLOBIN. 14.1 g/dL (12.0-16.0); LYMPHOCYTES % 38.3 % (20.0-50.0); MEAN CORPUSCULAR HEMOGLOBIN 29.3 pg (28.0-32.0); MEAN CORPUSCULAR VOLUME 88.3 fL (81.0-99.0); MONOCYTES % 9.2 % (2.0-8.0); NEUTROPHILS % 49.3 % (40.0-76.0); PLATELET 268 x1000/uL (130-400); RED BLOOD CELL COUNT 4.81 mill/uL (4.2-5.4); RED CELL DISTRIBUTION WIDTH 13.9 % (11.6-14.6)
[2019-08-25] MEDS: SODIUM CHLORIDE 0.9% 1,000 ML IV SCH (07:32)
[2019-08-25] MEDS: BLOOD SUGAR DIAGNOSTIC STRIP TEST SCH ×2 (07:33→11:42)
[2019-08-25 08:00] VITALS: BP 114/59
[2019-08-25] MEDS: PANTOPRAZOLE SODIUM 40 MG/VIAL IV SCH (08:27)
[2019-08-25] MEDS: ASPIRIN 81MG EC TABLET PO SCH (08:27)
[2019-08-25] MEDS: SERTRALINE HCL 50MG TABLET PO SCH (08:27)
[2019-08-25] MEDS: AMLODIPINE 5MG TABLET PO SCH (08:28)
[2019-08-25] MEDS: INSULIN LISPRO (MEDIUM DOSE) 100 UNITS/ML SUBCUT SCH ×2 (08:30→11:46)
[2019-08-25 09:43] LABS: CHLORIDE 105 mEq/L (98-107)
[2019-08-25] MEDS: CEFTRIAXONE 1 G PREMIX 50 ML IV SCH (11:46)
[2019-08-25 12:00] VITALS: BP 115/39
[2019-08-25 13:05] VITALS: BP 111/41
== END 2019-08-25 16:26 | disposition home or self-care (01) | DRG 48 ==
LOC: ER 10:30 → EDBEDREQ 11:34 → 7WST 14:59 → EDBEDREQ 15:24 → ENRESERV 20:38
PROVIDERS: ADMIT Internal Medicine; ATTEND Internal Medicine
DX: E11.43 Type 2 diabetes mellitus with diabetic autonomic (poly)neuropathy (principal); R65.10 Systemic inflammatory response syndrome (SIRS) of non-infectious origin without acute organ dysfunction; A08.4 Viral intestinal infection, unspecified; K31.84 Gastroparesis; E11.9 Type 2 diabetes mellitus without complications; D72.829 Elevated white blood cell count, unspecified; E86.0 Dehydration; E87.6 Hypokalemia; I10 Essential (primary) hypertension; J45.909 Unspecified asthma, uncomplicated; N39.0 Urinary tract infection, site not specified; F32.9 Major depressive disorder, single episode, unspecified; Z79.899 Other long term (current) drug therapy; Z79.4 Long term (current) use of insulin; Z79.82 Long term (current) use of aspirin
CPT/HCPCS: 36415; 71045; 74177; 80048; 80053; 80061; 81003; 82962; 83605; 83735; 84100; 84443; 84484; 85025; 93005; 93970; 96361; 96365; 96375; 96376; 99285; C9113; J0696; J1630; J1815; J2270; J2405; J2765; J7030; Q9967

== ENCOUNTER 2019-08-29 13:05 | Inpatient (IN) | payer MEDICAID ==
[~2019-08-29] VITALS: Ht 162.6 cm; Wt 109.8 kg
[2019-08-29] MEDS ORDERED: ONDANSETRON HCL 4MG/2ML INJ IV ONE (13:30)
[2019-08-29] MEDS ORDERED: FAMOTIDINE 20MG/2ML VIAL IV ONE (13:30)
[2019-08-29 14:11] LABS: BASOPHILS % 0.6 % (0.0-2.0); EOSINOPHILS % 0.9 % (0.0-5.0); HEMATOCRIT. 48.2 % (36.0-48.0); LYMPHOCYTES % 18.7 % (20.0-50.0); MEAN CORPUSCULAR HEMOGLOBIN 29.4 pg (28.0-32.0); MEAN CORPUSCULAR VOLUME 88.2 fL (81.0-99.0); MEAN PLATELET VOLUME 8.1 fl (7.4-10.4); MONOCYTES % 3.8 % (2.0-8.0); PLATELET 388 x1000/uL (130-400); RED BLOOD CELL COUNT 5.47 mill/uL (4.2-5.4); RED CELL DISTRIBUTION WIDTH 14.1 % (11.6-14.6)
[2019-08-29 14:18] LABS: CHLORIDE 106 mEq/L (98-107)
[2019-08-29 14:18] LABS: *BENZODIAZEPINES SCREEN URINE NEGATIVE (NEGATIVE); *COCAINE SCREEN URINE NEGATIVE (NEGATIVE)
[2019-08-29 14:19] LABS: *AMPHETAMINES SCREEN URINE NEGATIVE (NEGATIVE); CANNABINOID URINE SCREEN PRESUMTIVE POSITIVE (NEGATIVE); METHADONE URINE SCREEN NEGATIVE (NEGATIVE); OPIATES URINE SCREEN NEGATIVE (NEGATIVE); PHENCYCLIDINE URINE SCREEN NEGATIVE (NEGATIVE)
[2019-08-29 14:20] LABS: *BARBITURATES SCREEN URINE NEGATIVE (NEGATIVE)
[2019-08-29 14:24] LABS: ETHANOL BLOOD < 10 mg/dL
[2019-08-29 14:38] LABS: HCG SCREEN NEGATIVE
[2019-08-29] MEDS ORDERED: LABETALOL 5MG/ML SYR 20 MG/4 ML SYRINGE IV ONE (16:30)
[2019-08-29] MEDS ORDERED: MORPHINE SULFATE 4 MG/ML CPJ (NOT FOR IM USE) IV ONE ×2 (16:30→20:45)
[2019-08-29] MEDS ORDERED: SODIUM CHLORIDE 0.9% 1,000 ML IV ONE (18:02)
[2019-08-29] MEDS ORDERED: LEVOFLOXACIN 500MG PREMIX 100 ML IV ONE (18:15)
[2019-08-29] MEDS ORDERED: CEFTRIAXONE 1 G PREMIX 50 ML IV ONE (18:15)
[2019-08-29 18:37] LABS: CLARITY URINE CLEAR (CLEAR); COLOR URINE YELLOW (YELLOW); KETONES URINE 1+ (NEGATIVE); LEUKOCYTE ESTERASE URINE TRACE (NEGATIVE); NITRITE URINE NEGATIVE (NEGATIVE); OCCULT BLOOD URINE 1+ (NEGATIVE); PH URINE 5.5 (4.5-8.0); PROTEIN URINE 2+ (NEGATIVE); SPECIFIC GRAVITY URINE 1.017 (1.005-1.030); UROBILINOGEN URINE 0.2 E.U./dL (0.2-1.0)
[2019-08-30 02:42] VITALS: BP 124/76
[2019-08-30 04:00] VITALS: BP 129/62
[2019-08-30 08:00] VITALS: BP 128/72
[2019-08-30] MEDS ORDERED: ENOXAPARIN 40MG/0.4ML SYR SUBCUT SCH (09:00)
[2019-08-30] MEDS ORDERED: GUAIFENESIN 200MG/10ML SUGAR FREE UDC PO PRN (11:30)
[2019-08-30] MEDS ORDERED: ACETAMINOPHEN 325MG TABLET PO PRN (11:30)
[2019-08-30] MEDS ORDERED: IPRATROPIUM/ALBUTEROL 0.5-3(2.5)MG/3ML NEB HHN PRN (11:30)
[2019-08-30] MEDS ORDERED: HYDROCODONE/ACETAMINOPHEN 5/325MG TABLET PO PRN (11:30)
[2019-08-30] MEDS ORDERED: CLONIDINE 0.1MG TABLET PO PRN (11:30)
[2019-08-30] MEDS ORDERED: LORAZEPAM 0.5MG TABLET PO PRN (11:30)
[2019-08-30] MEDS ORDERED: DOCUSATE SODIUM 100MG CAPSULE PO PRN (11:30)
[2019-08-30] MEDS ORDERED: ONDANSETRON HCL 4MG/2ML INJ IV PRN (11:30)
[2019-08-30 12:00] VITALS: BP 139/68
[2019-08-30] MEDS ORDERED: DEXTROSE 50% WATER 50ML SYRINGE IV PRN (12:00)
[2019-08-30] MEDS: BLOOD SUGAR DIAGNOSTIC STRIP TEST SCH ×3 (12:40→20:43)
[2019-08-30] MEDS: SODIUM CHLORIDE 0.9% 1,000 ML IV SCH ×2 (13:22→21:03)
[2019-08-30] MEDS: PANTOPRAZOLE 40MG DR TABLET PO SCH ×2 (13:22→17:44)
[2019-08-30] MEDS: AMLODIPINE 5MG TABLET PO SCH (13:22)
[2019-08-30] MEDS: INSULIN LISPRO 100 UNITS/ML SUBCUT SCH ×3 (13:24→20:48)
[2019-08-30 16:00] VITALS: BP 132/54
[2019-08-30 20:00] VITALS: BP 114/44
[2019-08-30] MEDS: HALOPERIDOL 5MG TABLET PO SCH (20:48)
[2019-08-31] VITALS: BP 145/73
[2019-08-31 04:00] VITALS: BP 142/83
[2019-08-31] MEDS: BLOOD SUGAR DIAGNOSTIC STRIP TEST SCH ×4 (06:46→21:00)
[2019-08-31] MEDS: SODIUM CHLORIDE 0.9% 1,000 ML IV SCH ×3 (06:55→21:19)
[2019-08-31 08:00] VITALS: BP 151/79
[2019-08-31] MEDS: INSULIN LISPRO 100 UNITS/ML SUBCUT SCH ×4 (08:10→21:00)
[2019-08-31] MEDS: PANTOPRAZOLE 40MG DR TABLET PO SCH ×2 (09:00→18:17)
[2019-08-31] MEDS: SERTRALINE HCL 50MG TABLET PO SCH (09:00)
[2019-08-31] MEDS: AMLODIPINE 5MG TABLET PO SCH (09:00)
[2019-08-31] MEDS ORDERED: PROPOFOL 200MG/20ML VIAL IV ONE (11:01)
[2019-08-31] MEDS ORDERED: HYDROMORPHONE HCL/PF 2MG/ML CPJ IV PRN ×2 (11:15→14:30)
[2019-08-31] MEDS ORDERED: LABETALOL 5MG/ML SYR 20 MG/4 ML SYRINGE IV PRN ×2 (11:15→14:30)
[2019-08-31] MEDS ORDERED: MEPERIDINE HCL/PF 25MG/ML CPJ IV PRN ×2 (11:15→14:30)
[2019-08-31] MEDS ORDERED: ONDANSETRON HCL 4MG/2ML INJ IV PRN ×2 (11:15→14:30)
[2019-08-31 12:00] VITALS: BP 136/65
[2019-08-31 20:00] VITALS: BP 133/53
[2019-08-31] MEDS: HALOPERIDOL 5MG TABLET PO SCH (20:58)
[2019-09-01 00:05] VITALS: BP 141/57
[2019-09-01 04:00] VITALS: BP 142/60
[2019-09-01] MEDS: BLOOD SUGAR DIAGNOSTIC STRIP TEST SCH ×2 (05:43→12:23)
[2019-09-01 06:38] LABS: CHLORIDE 106 mEq/L (98-107)
[2019-09-01 06:45] LABS: BASOPHILS % 0.9 % (0.0-2.0); EOSINOPHILS % 2.2 % (0.0-5.0); HEMOGLOBIN. 13.2 g/dL (12.0-16.0); LYMPHOCYTES % 29.5 % (20.0-50.0); MEAN CORPUSCULAR HEMOGLOBIN 29.8 pg (28.0-32.0); MEAN PLATELET VOLUME 8.7 fl (7.4-10.4); MONOCYTES % 6.9 % (2.0-8.0); NEUTROPHILS % 60.5 % (40.0-76.0); PLATELET 285 x1000/uL (130-400); RED BLOOD CELL COUNT 4.44 mill/uL (4.2-5.4); RED CELL DISTRIBUTION WIDTH 13.8 % (11.6-14.6)
[2019-09-01] MEDS: INSULIN LISPRO 100 UNITS/ML SUBCUT SCH ×2 (07:45→12:24)
[2019-09-01 08:00] VITALS: BP 152/55
[2019-09-01] MEDS: PANTOPRAZOLE 40MG DR TABLET PO SCH (09:01)
[2019-09-01] MEDS: SERTRALINE HCL 50MG TABLET PO SCH (09:01)
[2019-09-01] MEDS: AMLODIPINE 5MG TABLET PO SCH (09:01)
[2019-09-01 12:00] VITALS: BP 166/62
[2019-09-01] MEDS: SODIUM CHLORIDE 0.9% 1,000 ML IV SCH (13:53)
[2019-09-01] MEDS ORDERED: PANT40TA4 PO (14:09)
[2019-09-01 14:28] VITALS: BP 166/62
== END 2019-09-01 17:56 | disposition home or self-care (01) | DRG 241 ==
LOC: ER 13:05 → EDBEDREQ 16:27 → 7WST 18:14 → EDBEDREQ 18:16 → ENRESERV 23:17
PROVIDERS: ADMIT Internal Medicine; ATTEND Internal Medicine
PROC: 0DB98ZX Excision of Duodenum, Via Natural or Artificial Opening Endoscopic, Diagnostic (ICD-10-PCS; principal; 2019-08-31)
PROC: 0DB78ZX Excision of Stomach, Pylorus, Via Natural or Artificial Opening Endoscopic, Diagnostic (ICD-10-PCS; 2019-08-31)
DX: K29.60 Other gastritis without bleeding (principal); K92.0 Hematemesis; E66.01 Morbid (severe) obesity due to excess calories; E11.65 Type 2 diabetes mellitus with hyperglycemia; R16.0 Hepatomegaly, not elsewhere classified; Z68.41 Body mass index [BMI] 40.0-44.9, adult; I16.0 Hypertensive urgency; N39.0 Urinary tract infection, site not specified; E87.6 Hypokalemia; F32.9 Major depressive disorder, single episode, unspecified; K52.9 Noninfective gastroenteritis and colitis, unspecified; J45.909 Unspecified asthma, uncomplicated; G89.29 Other chronic pain; D72.829 Elevated white blood cell count, unspecified; R80.9 Proteinuria, unspecified; I10 Essential (primary) hypertension; Z79.4 Long term (current) use of insulin; Z79.899 Other long term (current) drug therapy; Z79.82 Long term (current) use of aspirin
CPT/HCPCS: 36415; 71045; 76705; 80048; 80053; 80061; 80305; 80320; 81003; 82010; 82962; 83036; 83605; 83880; 84484; 84703; 85025; 86677; 88305; 88313; 93005; 99285; J0696; J1630; J1650; J1815; J1956; J2270; J2405; J2704; J3490; J7030; G0480

== ENCOUNTER 2019-10-05 09:01 | Emergency (ER) | payer MEDICAID, OTHER ==
[~2019-10-05] VITALS: Ht 170.2 cm; Wt 91.0 kg
[~2019-10-05 09:01] MED LIST changes: -FAMO20TA8 PO; +PANT40TA4 PO
[2019-10-05] MEDS ORDERED: ONDANSETRON HCL 4MG/2ML INJ IV STA (09:14)
[2019-10-05 10:21] LABS: BASOPHILS % 0.3 % (0.0-2.0); HEMATOCRIT. 50.8 % (36.0-48.0); HEMOGLOBIN. 17.1 g/dL (12.0-16.0); LYMPHOCYTES % 10.3 % (20.0-50.0); MEAN CORPUSCULAR HEMOGLOBIN 29.3 pg (28.0-32.0); MEAN CORPUSCULAR VOLUME 87.1 fL (81.0-99.0); MEAN PLATELET VOLUME 8.4 fl (7.4-10.4); MONOCYTES % 2.8 % (2.0-8.0); NEUTROPHILS % 86.6 % (40.0-76.0); PLATELET 347 x1000/uL (130-400); RED BLOOD CELL COUNT 5.83 mill/uL (4.2-5.4); RED CELL DISTRIBUTION WIDTH 14.6 % (11.6-14.6)
[2019-10-05 10:40] LABS: ETHANOL BLOOD < 10 mg/dL
[2019-10-05] MEDS ORDERED: FAMOTIDINE 20MG/2ML VIAL IV ONE (11:00)
[2019-10-05] MEDS ORDERED: MORPHINE SULFATE 4 MG/ML CPJ (NOT FOR IM USE) IV ONE (11:00)
[2019-10-05 11:11] LABS: CHLORIDE 101 mEq/L (98-107)
[2019-10-05 11:15] LABS: HCG SCREEN NEGATIVE
[2019-10-05] MEDS ORDERED: PIPERACILLIN/TAZ 3.375G PREMIX 50 ML IV ONE (11:30)
[2019-10-05 15:08] VITALS: BP 122/46
[2019-10-05 15:36] LABS: KETONES URINE 3+ (NEGATIVE); LEUKOCYTE ESTERASE URINE 1+ (NEGATIVE); NITRITE URINE NEGATIVE (NEGATIVE); OCCULT BLOOD URINE 2+ (NEGATIVE); PROTEIN URINE 4+ (NEGATIVE); SPECIFIC GRAVITY URINE 1.036 (1.005-1.030); UROBILINOGEN URINE 0.2 E.U./dL (0.2-1.0)
[2019-10-05 15:44] LABS: COLOR URINE YELLOW (YELLOW)
[2019-10-05 15:45] LABS: CLARITY URINE CLOUDY (CLEAR)
[2019-10-05 16:06] LABS: *AMPHETAMINES SCREEN URINE NEGATIVE (NEGATIVE); *BARBITURATES SCREEN URINE NEGATIVE (NEGATIVE); *BENZODIAZEPINES SCREEN URINE NEGATIVE (NEGATIVE); *COCAINE SCREEN URINE NEGATIVE (NEGATIVE)
[2019-10-05 16:07] LABS: CANNABINOID URINE SCREEN PRESUMTIVE POSITIVE (NEGATIVE); METHADONE URINE SCREEN NEGATIVE (NEGATIVE); OPIATES URINE SCREEN PRESUMTIVE POSITIVE (NEGATIVE); PHENCYCLIDINE URINE SCREEN NEGATIVE (NEGATIVE)
== END 2019-10-05 15:00 | disposition short-term general hospital (02) ==
LOC: ER 09:01 → EDBEDREQ 11:48 → CANRESERV 12:22 → ENRESERV 12:22 → CANBEDREQ 12:25 → ER 15:00
DX: R07.89 Other chest pain (principal); R65.10 Systemic inflammatory response syndrome (SIRS) of non-infectious origin without acute organ dysfunction; R10.13 Epigastric pain; I10 Essential (primary) hypertension; E11.9 Type 2 diabetes mellitus without complications; J45.909 Unspecified asthma, uncomplicated; Z79.4 Long term (current) use of insulin; Z79.82 Long term (current) use of aspirin
CPT/HCPCS: 36415; 71045; 76705; 80053; 80305; 80320; 81003; 81025; 82962; 83605; 83690; 83880; 84484; 84703; 85025; 87040; 87086; 87804; 93005; 96365; 96375; 99285; J2270; J2405; J2543; J3490; G0480

== ENCOUNTER 2019-11-25 03:48 | Inpatient (IN) | payer OTHER ==
[~2019-11-25] VITALS: Ht 160 cm; Wt 90.9 kg
[2019-11-25] MEDS ORDERED: KETOROLAC 30MG/ML VIAL IV STA (05:31)
[2019-11-25] MEDS ORDERED: SODIUM CHLORIDE 0.9% 1,000 ML IV ONE ×2 (05:31→06:18)
[2019-11-25] MEDS ORDERED: ONDANSETRON HCL 4MG/2ML INJ IV STA ×2 (05:31→06:18)
[2019-11-25] MEDS ORDERED: FAMOTIDINE 20MG/2ML VIAL IV STA (05:31)
[2019-11-25 05:55] LABS: BASOPHILS % 0.2 % (0.0-2.0); HEMATOCRIT. 45.9 % (36.0-48.0); HEMOGLOBIN. 15.5 g/dL (12.0-16.0); LYMPHOCYTES % 12.7 % (20.0-50.0); MEAN CORPUSCULAR HEMOGLOBIN 29.6 pg (28.0-32.0); MEAN CORPUSCULAR VOLUME 87.4 fL (81.0-99.0); MEAN PLATELET VOLUME 8.8 fl (7.4-10.4); NEUTROPHILS % 82.1 % (40.0-76.0); PLATELET 343 x1000/uL (130-400); RED BLOOD CELL COUNT 5.24 mill/uL (4.2-5.4); RED CELL DISTRIBUTION WIDTH 15.1 % (11.6-14.6)
[2019-11-25 05:56] LABS: CHLORIDE 104 mEq/L (98-107)
[2019-11-25 06:03] LABS: INR 1.1; PROTHROMBIN TIME 11.5 sec (9.6-11.0)
[2019-11-25] MEDS ORDERED: ENALAPRIL 2.5MG/2ML VIAL 2ML IV ONE (06:45)
[2019-11-25] MEDS ORDERED: METRONIDAZOLE 500 MG PREMIX 100 ML IV ONE (07:15)
[2019-11-25] MEDS ORDERED: LEVOFLOXACIN 500MG PREMIX 100 ML IV ONE (07:15)
[2019-11-25] MEDS ORDERED: ONDANSETRON HCL 4MG/2ML INJ IV ONE (08:15)
[2019-11-25] MEDS ORDERED: FENTANYL CITRATE/PF 50MCG/ML 2ML VIAL IV ONE (08:15)
[2019-11-25 08:30] LABS: CLARITY URINE CLOUDY (CLEAR); COLOR URINE DARK YELLOW (YELLOW); KETONES URINE 4+ (NEGATIVE); LEUKOCYTE ESTERASE URINE TRACE (NEGATIVE); NITRITE URINE NEGATIVE (NEGATIVE); OCCULT BLOOD URINE NEGATIVE (NEGATIVE); PROTEIN URINE 4+ (NEGATIVE); SPECIFIC GRAVITY URINE 1.037 (1.005-1.030)
[2019-11-25] MEDS ORDERED: DIPHENHYDRAMINE 50MG/ML VIAL IV PRN (09:15)
[2019-11-25] MEDS ORDERED: POTASSIUM CHLORIDE 20MEQ/PACKET PO NR (09:15)
[2019-11-25] MEDS ORDERED: ACETAMINOPHEN 325MG TABLET PO PRN (09:15)
[2019-11-25] MEDS ORDERED: CLONIDINE 0.1MG TABLET PO PRN (09:15)
[2019-11-25] MEDS ORDERED: ONDANSETRON HCL 4MG/2ML INJ IV PRN (09:15)
[2019-11-25] MEDS ORDERED: IPRATROPIUM/ALBUTEROL 0.5-3(2.5)MG/3ML NEB HHN PRN (09:15)
[2019-11-25 09:27] LABS: PHOSPHORUS 2.5 mg/dL (2.5-4.9)
[2019-11-25] MEDS ORDERED: DEXTROSE 50% WATER 50ML SYRINGE IV PRN (13:00)
[2019-11-25] MEDS: BLOOD SUGAR DIAGNOSTIC STRIP TEST SCH ×3 (14:06→22:00)
[2019-11-25] MEDS: INSULIN LISPRO (MEDIUM DOSE) 100 UNITS/ML SUBCUT SCH ×2 (14:20→18:11)
[2019-11-25] MEDS: MORPHINE SULFATE 2 MG/ML CPJ (NOT FOR IM USE) IV PRN (14:20)
[2019-11-25] MEDS: METOCLOPRAMIDE HCL 10MG/2ML VIAL IV SCH ×2 (18:21→23:33)
[2019-11-25 22:30] VITALS: BP 154/87
[2019-11-25] MEDS: OMEPRAZOLE 20MG CAPSULE EXTENDED RELEASE PO SCH (23:33)
[2019-11-26] VITALS: BP 117/56
[2019-11-26 04:00] VITALS: BP 113/53
[2019-11-26] MEDS: METOCLOPRAMIDE HCL 10MG/2ML VIAL IV SCH ×2 (05:55→12:41)
[2019-11-26] MEDS: OMEPRAZOLE 20MG CAPSULE EXTENDED RELEASE PO SCH (05:55)
[2019-11-26] MEDS: BLOOD SUGAR DIAGNOSTIC STRIP TEST SCH ×2 (06:10→12:42)
[2019-11-26] MEDS: INSULIN LISPRO (MEDIUM DOSE) 100 UNITS/ML SUBCUT SCH ×2 (06:18→13:31)
[2019-11-26] MEDS: MORPHINE SULFATE 2 MG/ML CPJ (NOT FOR IM USE) IV PRN (06:20)
[2019-11-26 06:43] LABS: BASOPHILS % 0.6 % (0.0-2.0); EOSINOPHILS % 0.7 % (0.0-5.0); HEMATOCRIT. 43.6 % (36.0-48.0); HEMOGLOBIN. 14.5 g/dL (12.0-16.0); LYMPHOCYTES % 26.6 % (20.0-50.0); MEAN CORPUSCULAR HEMOGLOBIN 29.3 pg (28.0-32.0); MEAN CORPUSCULAR VOLUME 88.2 fL (81.0-99.0); MEAN PLATELET VOLUME 8.2 fl (7.4-10.4); MONOCYTES % 6.3 % (2.0-8.0); NEUTROPHILS % 65.8 % (40.0-76.0); PLATELET 301 x1000/uL (130-400); RED BLOOD CELL COUNT 4.94 mill/uL (4.2-5.4); RED CELL DISTRIBUTION WIDTH 15.2 % (11.6-14.6)
[2019-11-26 07:18] LABS: CHLORIDE 103 mEq/L (98-107)
[2019-11-26 07:23] LABS: LDL CHOLESTEROL 77 mg/dL (5-100)
[2019-11-26 07:24] LABS: HDL CHOLESTEROL 29 mg/dL (40-59)
[2019-11-26 08:00] VITALS: BP 113/59
[2019-11-26 12:00] VITALS: BP 115/63
[2019-11-26] MEDS ORDERED: MAGNESIUM 2 G PREMIX 50 ML IV SCH (12:00)
[2019-11-26 15:18] VITALS: BP 113/59
== END 2019-11-26 17:00 | disposition home or self-care (01) | DRG 48 ==
LOC: ER 03:48 → EDBEDREQ 06:20 → 5WST 08:00 → EDBEDREQ 08:08 → EDBEDREQTM 08:08 → ENRESERV 21:06
PROVIDERS: ADMIT Internal Medicine; ATTEND Internal Medicine
DX: E11.43 Type 2 diabetes mellitus with diabetic autonomic (poly)neuropathy (principal); E11.65 Type 2 diabetes mellitus with hyperglycemia; I10 Essential (primary) hypertension; K31.84 Gastroparesis; E87.6 Hypokalemia; J45.909 Unspecified asthma, uncomplicated; G89.29 Other chronic pain; D72.829 Elevated white blood cell count, unspecified; F32.9 Major depressive disorder, single episode, unspecified; N39.0 Urinary tract infection, site not specified; Z79.82 Long term (current) use of aspirin; Z79.899 Other long term (current) drug therapy; Z79.4 Long term (current) use of insulin
CPT/HCPCS: 36415; 71045; 74176; 80053; 80061; 81003; 82962; 83605; 83735; 83880; 84100; 84145; 84484; 85025; 87045; 87493; 89055; 93005; 93970; 96374; 99285; J1815; J1885; J1956; J2270; J2405; J2765; J3010; J3475; J3490; J7030

== ENCOUNTER 2019-12-21 19:03 | Emergency (ER) | payer OTHER ==
[~2019-12-21] VITALS: Ht 170.2 cm; Wt 95.0 kg
[~2019-12-21 19:03] MED LIST changes: -SITA100T11 MT
[2019-12-21] MEDS ORDERED: ONDANSETRON HCL 4MG/2ML INJ IV STA (21:05)
[2019-12-21] MEDS ORDERED: KETOROLAC 30MG/ML VIAL IV STA (21:05)
[2019-12-21] MEDS ORDERED: SODIUM CHLORIDE 0.9% 1,000 ML IV ONE (21:05)
[2019-12-21 21:25] LABS: BASOPHILS % 0.3 % (0.0-2.0); EOSINOPHILS % 0.2 % (0.0-5.0); HEMATOCRIT. 43.7 % (36.0-48.0); LYMPHOCYTES % 13.3 % (20.0-50.0); MEAN CORPUSCULAR HEMOGLOBIN 29.9 pg (28.0-32.0); MEAN CORPUSCULAR VOLUME 87.1 fL (81.0-99.0); MEAN PLATELET VOLUME 8.2 fl (7.4-10.4); MONOCYTES % 4.1 % (2.0-8.0); NEUTROPHILS % 82.1 % (40.0-76.0); PLATELET 345 x1000/uL (130-400); RED BLOOD CELL COUNT 5.02 mill/uL (4.2-5.4); RED CELL DISTRIBUTION WIDTH 14.5 % (11.6-14.6)
[2019-12-21 21:28] LABS: CHLORIDE 103 mEq/L (98-107)
[2019-12-21] MEDS ORDERED: MORPHINE SULFATE 2 MG/ML CPJ (NOT FOR IM USE) IV NR ×2 (22:30→23:45)
[2019-12-21] MEDS ORDERED: ONDANSETRON HCL 4MG/2ML INJ IV ONE (23:15)
[2019-12-22 02:46] VITALS: BP 188/78
[2020-01-05] MEDS ORDERED: ONDA4TAB11 (00:59)
[2020-01-05] MEDS ORDERED: GABA-531 (00:59)
[2020-01-05] MEDS ORDERED: NAPR-681 (00:59)
[2020-01-05] MEDS ORDERED: NEED-122 (00:59)
[2020-01-05] MEDS ORDERED: HALO10TA13 (00:59)
[2020-01-05] MEDS ORDERED: METF-414 (00:59)
[2020-01-05] MEDS ORDERED: METO25TA6 (00:59)
[2020-01-05] MEDS ORDERED: LEVO500T2 MT (16:58)
[2020-01-05] MEDS ORDERED: METO-293 MT (16:58)
== END 2019-12-22 03:04 | disposition home or self-care (01) ==
LOC: ER 19:03
DX: R10.84 Generalized abdominal pain (principal); I10 Essential (primary) hypertension; E11.9 Type 2 diabetes mellitus without complications
CPT/HCPCS: 36415; 71045; 74176; 80053; 83690; 83880; 84484; 85025; 93005; 96361; 96374; 96375; 96376; 99285; J1885; J2270; J2405; J7030

== ENCOUNTER 2019-12-23 04:21 | Emergency (ER) | payer OTHER ==
[~2019-12-23] VITALS: Ht 170.2 cm; Wt 105.0 kg
[2019-12-23] MEDS ORDERED: SODIUM CHLORIDE 0.9% 1,000 ML IV ONE ×2 (04:39→06:45)
[2019-12-23] MEDS ORDERED: ONDANSETRON HCL 4MG/2ML INJ IV STA (04:39)
[2019-12-23 05:18] LABS: BASOPHILS % 0.3 % (0.0-2.0); EOSINOPHILS % 0.4 % (0.0-5.0); HEMATOCRIT. 43.4 % (36.0-48.0); LYMPHOCYTES % 16.6 % (20.0-50.0); MEAN CORPUSCULAR HEMOGLOBIN 30.3 pg (28.0-32.0); MEAN CORPUSCULAR VOLUME 87.5 fL (81.0-99.0); MEAN PLATELET VOLUME 8.1 fl (7.4-10.4); MONOCYTES % 5.6 % (2.0-8.0); NEUTROPHILS % 77.1 % (40.0-76.0); PLATELET 300 x1000/uL (130-400); RED BLOOD CELL COUNT 4.96 mill/uL (4.2-5.4); RED CELL DISTRIBUTION WIDTH 14.4 % (11.6-14.6)
[2019-12-23 05:27] LABS: CHLORIDE 100 mEq/L (98-107)
[2019-12-23 05:32] LABS: ETHANOL BLOOD < 10 mg/dL
[2019-12-23] MEDS ORDERED: LACTATED RINGERS 1,000 ML IV STA (06:38)
[2019-12-23] MEDS ORDERED: MORPHINE SULFATE 4 MG/ML CPJ (NOT FOR IM USE) IV ONE ×2 (06:45→08:15)
[2019-12-23] MEDS ORDERED: POTASSIUM CHLORIDE INJ 40 MEQ in DEXT 5% WATER 250 ML IV ONE (06:45)
[2019-12-23 09:30] LABS: CLARITY URINE CLOUDY (CLEAR); COLOR URINE YELLOW (YELLOW); KETONES URINE 2+ (NEGATIVE); LEUKOCYTE ESTERASE URINE 2+ (NEGATIVE); NITRITE URINE NEGATIVE (NEGATIVE); OCCULT BLOOD URINE TRACE (NEGATIVE); PROTEIN URINE 2+ (NEGATIVE); SPECIFIC GRAVITY URINE 1.022 (1.005-1.030)
[2019-12-23 09:44] LABS: *AMPHETAMINES SCREEN URINE NEGATIVE (NEGATIVE); *BARBITURATES SCREEN URINE NEGATIVE (NEGATIVE); *BENZODIAZEPINES SCREEN URINE NEGATIVE (NEGATIVE); *COCAINE SCREEN URINE NEGATIVE (NEGATIVE); METHADONE URINE SCREEN NEGATIVE (NEGATIVE); OPIATES URINE SCREEN PRESUMTIVE POSITIVE (NEGATIVE)
[2019-12-23 09:45] LABS: CANNABINOID URINE SCREEN PRESUMTIVE POSITIVE (NEGATIVE); PHENCYCLIDINE URINE SCREEN NEGATIVE (NEGATIVE)
[2019-12-23] MEDS ORDERED: INSULIN LISPRO 100 UNITS/ML SUBCUT SCH (10:00)
[2019-12-23] MEDS ORDERED: DEXTROSE 50% WATER 50ML SYRINGE IV PRN (10:00)
[2019-12-23] MEDS ORDERED: BLOOD SUGAR DIAGNOSTIC STRIP TEST SCH ×2 (10:00→13:00)
[2019-12-23 11:09] VITALS: BP 125/78
[2020-01-05] MEDS ORDERED: HALO10TA13 (00:59)
[2020-01-05] MEDS ORDERED: METF-414 (00:59)
[2020-01-05] MEDS ORDERED: NAPR-681 (00:59)
[2020-01-05] MEDS ORDERED: GABA-531 (00:59)
[2020-01-05] MEDS ORDERED: ONDA4TAB11 (00:59)
[2020-01-05] MEDS ORDERED: METO25TA6 (00:59)
[2020-01-05] MEDS ORDERED: NEED-122 (00:59)
[2020-01-05] MEDS ORDERED: METO-293 MT (16:58)
[2020-01-05] MEDS ORDERED: LEVO500T2 MT (16:58)
== END 2019-12-23 11:26 | disposition short-term general hospital (02) ==
LOC: ER 04:21 → CANBEDREQ 17:19
DX: K85.90 Acute pancreatitis without necrosis or infection, unspecified (principal); J45.909 Unspecified asthma, uncomplicated; E11.9 Type 2 diabetes mellitus without complications; I10 Essential (primary) hypertension; Z79.899 Other long term (current) drug therapy; Z79.4 Long term (current) use of insulin
CPT/HCPCS: 36415; 80053; 80305; 80320; 81003; 82962; 83036; 83605; 83690; 84478; 84484; 85025; 93005; 96361; 96365; 96367; 96372; 96375; 96376; 99285; J1815; J2270; J2405; J3480; J7030; J7060; J7120; G0480

== ENCOUNTER 2020-01-01 15:49 | Emergency (ER) | payer OTHER ==
[~2020-01-01] VITALS: Ht 165.1 cm; Wt 104.0 kg
[2020-01-01] MEDS ORDERED: KETOROLAC 30MG/ML VIAL IV STA (16:32)
[2020-01-01] MEDS ORDERED: ONDANSETRON HCL 4MG/2ML INJ IV STA (16:32)
[2020-01-01] MEDS ORDERED: SODIUM CHLORIDE 0.9% 1,000 ML IV ONE (16:32)
[2020-01-01 16:56] LABS: CLARITY URINE CLOUDY (CLEAR); COLOR URINE YELLOW (YELLOW); KETONES URINE 1+ (NEGATIVE); LEUKOCYTE ESTERASE URINE 2+ (NEGATIVE); NITRITE URINE POSITIVE (NEGATIVE); OCCULT BLOOD URINE TRACE (NEGATIVE); PH URINE 5.5 (4.5-8.0); PROTEIN URINE 2+ (NEGATIVE); SPECIFIC GRAVITY URINE 1.022 (1.005-1.030)
[2020-01-01 16:57] LABS: BASOPHILS % 0.4 % (0.0-2.0); EOSINOPHILS % 0.5 % (0.0-5.0); HEMATOCRIT. 42.7 % (36.0-48.0); HEMOGLOBIN. 14.5 g/dL (12.0-16.0); INR 0.9; LYMPHOCYTES % 19.1 % (20.0-50.0); MEAN CORPUSCULAR HEMOGLOBIN 29.7 pg (28.0-32.0); MEAN CORPUSCULAR VOLUME 87.8 fL (81.0-99.0); MEAN PLATELET VOLUME 8.6 fl (7.4-10.4); MONOCYTES % 5.5 % (2.0-8.0); NEUTROPHILS % 74.5 % (40.0-76.0); PLATELET 349 x1000/uL (130-400); RED BLOOD CELL COUNT 4.86 mill/uL (4.2-5.4); RED CELL DISTRIBUTION WIDTH 14.4 % (11.6-14.6)
[2020-01-01 17:00] LABS: CHLORIDE 105 mEq/L (98-107)
[2020-01-01] MEDS ORDERED: CEFTRIAXONE 1 G PREMIX 50 ML IV ONE (17:30)
[2020-01-01] MEDS ORDERED: MORPHINE SULFATE 4 MG/ML CPJ (NOT FOR IM USE) IV ONE ×2 (17:30→21:30)
[2020-01-01] MEDS ORDERED: METRONIDAZOLE 500MG TABLET PO NR (17:45)
[2020-01-01] MEDS ORDERED: FLUCONAZOLE 150MG TABLET PO NR (17:45)
[2020-01-01] MEDS ORDERED: CLONIDINE 0.2MG TABLET PO ONE ×2 (19:15→21:30)
[2020-01-01] MEDS ORDERED: ONDANSETRON HCL 4MG/2ML INJ IV ONE (20:30)
[2020-01-01] MEDS ORDERED: ALPRAZOLAM 0.5 MG TABLET PO ONE (21:30)
[2020-01-01] MEDS ORDERED: LABETALOL 5MG/ML SYR 20 MG/4 ML SYRINGE IV ONE ×2 (22:15→23:45)
[2020-01-02] MEDS ORDERED: LABETALOL 5MG/ML SYR 20 MG/4 ML SYRINGE IV ONE (01:30)
[2020-01-02] MEDS ORDERED: LABETALOL HCL 200MG TABLET PO SCH (01:30)
[2020-01-02] MEDS ORDERED: INSULIN REGULAR (HUMULIN R) UD 100 UNITS/ML SYR IV ONE (01:30)
[2020-01-02] MEDS ORDERED: INSULIN REGULAR (HUMULIN R) 300UNITS/3ML IV NR (01:45)
[2020-01-02 02:00] VITALS: BP 112/68
[2020-01-05] MEDS ORDERED: METO25TA6 (00:59)
[2020-01-05] MEDS ORDERED: METF-414 (00:59)
[2020-01-05] MEDS ORDERED: GABA-531 (00:59)
[2020-01-05] MEDS ORDERED: NAPR-681 (00:59)
[2020-01-05] MEDS ORDERED: NEED-122 (00:59)
[2020-01-05] MEDS ORDERED: HALO10TA13 (00:59)
[2020-01-05] MEDS ORDERED: ONDA4TAB11 (00:59)
[2020-01-05] MEDS ORDERED: METO-293 MT (16:58)
[2020-01-05] MEDS ORDERED: LEVO500T2 MT (16:58)
== END 2020-01-02 02:55 | disposition short-term general hospital (02) ==
LOC: ER 15:49
DX: N10 Acute pyelonephritis (principal); A59.03 Trichomonal cystitis and urethritis; E10.65 Type 1 diabetes mellitus with hyperglycemia; I16.0 Hypertensive urgency; J45.909 Unspecified asthma, uncomplicated; F99 Mental disorder, not otherwise specified; Z79.4 Long term (current) use of insulin; Z79.82 Long term (current) use of aspirin
CPT/HCPCS: 36415; 80053; 81003; 82962; 83690; 85025; 85610; 87077; 87086; 87186; 96361; 96365; 96375; 96376; 99285; J0696; J1815; J1885; J2270; J2405; J3490; J7030

== ENCOUNTER 2020-01-06 14:51 | Emergency (ER) | payer OTHER ==
[~2020-01-06] VITALS: Ht 167.6 cm; Wt 105.0 kg
[~2020-01-06 14:51] MED LIST changes: +GABA-531; +HALO10TA13; +LEVO500T2 MT; +METF-414; +METO-293 MT; +METO25TA6; +NEED-122; +ONDA4TAB11
[2020-01-06] MEDS ORDERED: ONDANSETRON HCL 4MG/2ML INJ IV STA ×2 (15:13→18:14)
[2020-01-06] MEDS ORDERED: KETOROLAC 30MG/ML VIAL IV STA (15:13)
[2020-01-06] MEDS ORDERED: SODIUM CHLORIDE 0.9% 1,000 ML IV ONE (15:13)
[2020-01-06] MEDS ORDERED: LORAZEPAM 2MG/ML CPJ IV ONE (15:30)
[2020-01-06] MEDS ORDERED: HYDRALAZINE 20MG/ML VIAL IV ONE (15:30)
[2020-01-06 15:44] LABS: BASOPHILS % 0.3 % (0.0-2.0); EOSINOPHILS % 0.1 % (0.0-5.0); HEMATOCRIT. 47.9 % (36.0-48.0); HEMOGLOBIN. 16.5 g/dL (12.0-16.0); LYMPHOCYTES % 11.5 % (20.0-50.0); MEAN CORPUSCULAR HEMOGLOBIN 30.1 pg (28.0-32.0); MEAN CORPUSCULAR VOLUME 87.3 fL (81.0-99.0); MONOCYTES % 2.5 % (2.0-8.0); NEUTROPHILS % 85.6 % (40.0-76.0); PLATELET 431 x1000/uL (130-400); RED BLOOD CELL COUNT 5.48 mill/uL (4.2-5.4); RED CELL DISTRIBUTION WIDTH 14.4 % (11.6-14.6)
[2020-01-06 16:20] LABS: CHLORIDE 102 mEq/L (98-107)
[2020-01-06 16:21] LABS: PROTHROMBIN TIME 11.2 sec (9.6-11.0)
[2020-01-06] MEDS ORDERED: MORPHINE SULFATE 4 MG/ML CPJ (NOT FOR IM USE) IV STA (18:14)
[2020-01-06 20:50] VITALS: BP 129/75
== END 2020-01-06 20:55 | disposition home or self-care (01) ==
LOC: ER 14:51
DX: R10.9 Unspecified abdominal pain (principal); R11.2 Nausea with vomiting, unspecified; J45.909 Unspecified asthma, uncomplicated; E11.9 Type 2 diabetes mellitus without complications; I10 Essential (primary) hypertension; Z79.899 Other long term (current) drug therapy; Z79.4 Long term (current) use of insulin
CPT/HCPCS: 36415; 74176; 80053; 83690; 85025; 85610; 93005; 96361; 96374; 96375; 96376; 99285; J0360; J2060; J2270; J2405; J7030

== ENCOUNTER 2020-03-10 19:38 | Emergency (ER) | payer OTHER ==
[~2020-03-10] VITALS: Ht 162.6 cm; Wt 105.0 kg
[2020-03-10] MEDS ORDERED: ONDANSETRON HCL 4MG/2ML INJ IV STA (20:28)
[2020-03-10] MEDS ORDERED: MORPHINE SULFATE 4 MG/ML CPJ (NOT FOR IM USE) IV STA (20:28)
[2020-03-10] MEDS ORDERED: SODIUM CHLORIDE 0.9% 1,000 ML IV ONE (20:28)
[2020-03-10 21:07] LABS: CHLORIDE 105 mEq/L (98-107)
[2020-03-10 21:08] LABS: BASOPHILS % 0.5 % (0.0-2.0); EOSINOPHILS % 0.8 % (0.0-5.0); HEMATOCRIT. 41.8 % (36.0-48.0); HEMOGLOBIN. 14.3 g/dL (12.0-16.0); LYMPHOCYTES % 20.9 % (20.0-50.0); MEAN CORPUSCULAR HEMOGLOBIN 29.9 pg (28.0-32.0); MEAN CORPUSCULAR VOLUME 87.3 fL (81.0-99.0); MEAN PLATELET VOLUME 8.9 fl (7.4-10.4); MONOCYTES % 3.7 % (2.0-8.0); NEUTROPHILS % 74.1 % (40.0-76.0); PLATELET 257 x1000/uL (130-400); RED BLOOD CELL COUNT 4.79 mill/uL (4.2-5.4); RED CELL DISTRIBUTION WIDTH 13.8 % (11.6-14.6)
[2020-03-10 21:09] LABS: PROTHROMBIN TIME 10.5 sec (9.6-11.0)
[2020-03-10 21:14] LABS: CLARITY URINE CLOUDY (CLEAR); COLOR URINE YELLOW (YELLOW); KETONES URINE 2+ (NEGATIVE); LEUKOCYTE ESTERASE URINE TRACE (NEGATIVE); NITRITE URINE NEGATIVE (NEGATIVE); OCCULT BLOOD URINE NEGATIVE (NEGATIVE); PROTEIN URINE 2+ (NEGATIVE); SPECIFIC GRAVITY URINE 1.029 (1.005-1.030)
[2020-03-11 01:00] VITALS: BP 163/72
[2020-03-11] MEDS ORDERED: ONDANSETRON HCL 4MG/2ML INJ IM ONE (01:15)
== END 2020-03-11 03:53 | disposition home or self-care (01) ==
LOC: ER 19:38
DX: R10.84 Generalized abdominal pain (principal); R11.2 Nausea with vomiting, unspecified; E11.9 Type 2 diabetes mellitus without complications; I10 Essential (primary) hypertension; Z79.4 Long term (current) use of insulin; Z79.82 Long term (current) use of aspirin; Z79.899 Other long term (current) drug therapy
CPT/HCPCS: 36415; 74176; 80053; 81003; 81025; 83690; 85025; 85610; 93005; 96361; 96372; 96374; 96375; 99285; J2270; J2405; J7030

== ENCOUNTER 2020-03-31 18:11 | Inpatient (IN) | payer OTHER ==
[~2020-03-31] VITALS: Ht 167.6 cm; Wt 99.3 kg
[2020-03-31] MEDS ORDERED: SODIUM CHLORIDE 0.9% 1000ML BAG (SEPSIS BOLUS) IV ONE (19:15)
[2020-03-31] MEDS ORDERED: FAMOTIDINE 20MG/2ML VIAL IV ONE (19:30)
[2020-03-31] MEDS ORDERED: ONDANSETRON HCL 4MG/2ML INJ IV ONE (19:30)
[2020-03-31 19:55] LABS: CHLORIDE 99 mEq/L (98-107)
[2020-03-31 20:03] LABS: PROTHROMBIN TIME 10.7 sec (9.6-11.0)
[2020-03-31 20:04] LABS: BASOPHILS % 0.3 % (0.0-2.0); EOSINOPHILS % 0.1 % (0.0-5.0); HEMATOCRIT. 49.9 % (36.0-48.0); HEMOGLOBIN. 16.3 g/dL (12.0-16.0); LYMPHOCYTES % 13.9 % (20.0-50.0); MEAN CORPUSCULAR HEMOGLOBIN 29.2 pg (28.0-32.0); MEAN CORPUSCULAR VOLUME 89.1 fL (81.0-99.0); MEAN PLATELET VOLUME 8.8 fl (7.4-10.4); MONOCYTES % 2.5 % (2.0-8.0); NEUTROPHILS % 83.2 % (40.0-76.0); PLATELET 339 x1000/uL (130-400)
[2020-03-31] MEDS ORDERED: INSULIN REGULAR (HUMULIN R) 300UNITS/3ML IV ONE (20:45)
[2020-03-31] MEDS ORDERED: MORPHINE SULFATE 4 MG/ML CPJ (NOT FOR IM USE) IV ONE (20:45)
[2020-03-31] MEDS ORDERED: INSULIN REGULAR (DRIP) 100 UNITS in SODIUM CHLORIDE 0.9% 99 ML IV SCH (20:45)
[2020-03-31] MEDS ORDERED: INSULIN REGULAR (DRIP) 100 UNITS in SODIUM CHLORIDE 0.9% 99 ML IV NR (21:00)
[2020-04-01] VITALS (12 sets, daily range): BP systolic 120–190; BP diastolic 57–121
[2020-04-01] MEDS ORDERED: CLONIDINE 0.1MG TABLET PO PRN (00:15)
[2020-04-01] MEDS: MORPHINE SULFATE 2 MG/ML CPJ (NOT FOR IM USE) IV PRN ×5 (00:44→20:21)
[2020-04-01] MEDS ORDERED: DEXTROSE 50% WATER 50ML SYRINGE IV PRN (01:15)
[2020-04-01] MEDS ORDERED: BLOOD SUGAR DIAGNOSTIC STRIP TEST SCH (01:30)
[2020-04-01] MEDS: SODIUM CHLORIDE 0.9% 1,000 ML IV SCH ×3 (01:47→22:15)
[2020-04-01] MEDS: LISINOPRIL 20MG TABLET PO SCH ×3 (01:47→22:16)
[2020-04-01] MEDS: INSULIN LISPRO 100 UNITS/ML SUBCUT SCH ×6 (01:48→22:14)
[2020-04-01] MEDS ORDERED: INSULIN LISPRO 100 UNITS/ML SUBCUT ONE (02:00)
[2020-04-01] MEDS ORDERED: INSULIN GLARGINE UD 100 UNITS/ML SYR SUBCUT SCH ×2 (03:00→10:00)
[2020-04-01] MEDS: BLOOD SUGAR DIAGNOSTIC STRIP TEST SCH ×4 (07:49→21:19)
[2020-04-01 08:21] LABS: BASOPHILS % 0.4 % (0.0-2.0); HEMATOCRIT. 46.6 % (36.0-48.0); HEMOGLOBIN. 15.6 g/dL (12.0-16.0); LYMPHOCYTES % 15.9 % (20.0-50.0); MEAN CORPUSCULAR HEMOGLOBIN 29.5 pg (28.0-32.0); MEAN CORPUSCULAR VOLUME 88.1 fL (81.0-99.0); MEAN PLATELET VOLUME 8.7 fl (7.4-10.4); MONOCYTES % 5.4 % (2.0-8.0); NEUTROPHILS % 78.3 % (40.0-76.0); PLATELET 342 x1000/uL (130-400); RED BLOOD CELL COUNT 5.29 mill/uL (4.2-5.4); RED CELL DISTRIBUTION WIDTH 14.4 % (11.6-14.6)
[2020-04-01] MEDS ORDERED: LISINOPRIL 20MG TABLET PO SCH (09:00)
[2020-04-01 09:37] LABS: CHLORIDE 105 mEq/L (98-107)
[2020-04-01] MEDS: ENOXAPARIN 30MG/0.3ML SYR SUBCUT SCH ×2 (11:52→22:16)
[2020-04-01] MEDS: OMEPRAZOLE 20MG CAPSULE EXTENDED RELEASE PO SCH (11:53)
[2020-04-01] MEDS: METOCLOPRAMIDE HCL 10MG/2ML VIAL IV SCH ×2 (11:53→17:57)
[2020-04-01 15:10] LABS: CLARITY URINE CLEAR (CLEAR); COLOR URINE YELLOW (YELLOW); KETONES URINE 1+ (NEGATIVE); LEUKOCYTE ESTERASE URINE 2+ (NEGATIVE); NITRITE URINE NEGATIVE (NEGATIVE); OCCULT BLOOD URINE NEGATIVE (NEGATIVE); PROTEIN URINE 1+ (NEGATIVE); SPECIFIC GRAVITY URINE 1.028 (1.005-1.030); UROBILINOGEN URINE 0.2 E.U./dL (0.2-1.0)
[2020-04-01 15:34] LABS: *AMPHETAMINES SCREEN URINE NEGATIVE (NEGATIVE); *BARBITURATES SCREEN URINE NEGATIVE (NEGATIVE); *BENZODIAZEPINES SCREEN URINE NEGATIVE (NEGATIVE); *COCAINE SCREEN URINE NEGATIVE (NEGATIVE); METHADONE URINE SCREEN NEGATIVE (NEGATIVE); OPIATES URINE SCREEN PRESUMTIVE POSITIVE (NEGATIVE)
[2020-04-01 15:35] LABS: CANNABINOID URINE SCREEN PRESUMTIVE POSITIVE (NEGATIVE); PHENCYCLIDINE URINE SCREEN NEGATIVE (NEGATIVE)
[2020-04-01] MEDS ORDERED: METRONIDAZOLE 250MG TABLET PO NR (16:30)
[2020-04-01] MEDS: CEFTRIAXONE 1,000 MG in DEXTROSE 5% WATER 50 ML IV SCH (17:57)
[2020-04-01] MEDS: INSULIN GLARGINE UD 100 UNITS/ML SYR SUBCUT SCH (22:15)
[2020-04-02] VITALS (7 sets, daily range): BP systolic 100–196; BP diastolic 59–88
[2020-04-02] MEDS: METOCLOPRAMIDE HCL 10MG/2ML VIAL IV SCH ×4 (00:23→18:21)
[2020-04-02] MEDS: MORPHINE SULFATE 2 MG/ML CPJ (NOT FOR IM USE) IV PRN ×2 (04:21→10:54)
[2020-04-02 06:41] LABS: CHLORIDE 106 mEq/L (98-107)
[2020-04-02] MEDS: OMEPRAZOLE 20MG CAPSULE EXTENDED RELEASE PO SCH (06:43)
[2020-04-02] MEDS: BLOOD SUGAR DIAGNOSTIC STRIP TEST SCH ×4 (06:47→21:04)
[2020-04-02 06:49] LABS: BASOPHILS % 0.5 % (0.0-2.0); EOSINOPHILS % 1.4 % (0.0-5.0); HEMATOCRIT. 40.2 % (36.0-48.0); HEMOGLOBIN. 13.5 g/dL (12.0-16.0); LYMPHOCYTES % 39.3 % (20.0-50.0); MEAN CORPUSCULAR HEMOGLOBIN 29.3 pg (28.0-32.0); MEAN CORPUSCULAR VOLUME 87.4 fL (81.0-99.0); MEAN PLATELET VOLUME 8.9 fl (7.4-10.4); NEUTROPHILS % 52.8 % (40.0-76.0); PLATELET 274 x1000/uL (130-400); RED BLOOD CELL COUNT 4.59 mill/uL (4.2-5.4); RED CELL DISTRIBUTION WIDTH 14.1 % (11.6-14.6)
[2020-04-02] MEDS: INSULIN LISPRO 100 UNITS/ML SUBCUT SCH ×7 (06:54→21:00)
[2020-04-02] MEDS: ONDANSETRON HCL 4MG/2ML INJ IV PRN ×2 (08:32→17:48)
[2020-04-02] MEDS: LISINOPRIL 20MG TABLET PO SCH ×2 (08:43→20:20)
[2020-04-02] MEDS: ENOXAPARIN 30MG/0.3ML SYR SUBCUT SCH ×2 (08:47→20:22)
[2020-04-02] MEDS: INSULIN GLARGINE UD 100 UNITS/ML SYR SUBCUT SCH ×2 (10:02→21:03)
[2020-04-02] MEDS: SODIUM CHLORIDE 0.9% 1,000 ML IV SCH ×2 (10:21→18:00)
[2020-04-02] MEDS ORDERED: KCL 20MEQ/100ML PREMIX 100 ML IV SCH (12:00)
[2020-04-02] MEDS ORDERED: IOHEXOL-300 100 ML BOTTLE ONE ×2 (13:42→21:10)
[2020-04-02] MEDS ORDERED: ENALAPRIL 2.5 MG in DEXTROSE 5% WATER 48 ML IV PRN (13:45)
[2020-04-02] MEDS ORDERED: ENALAPRIL 2.5MG/2ML VIAL 2ML IV PRN (13:45)
[2020-04-02] MEDS ORDERED: LABETALOL 5MG/ML SYR 20 MG/4 ML SYRINGE IV PRN (16:45)
[2020-04-02] MEDS: CEFTRIAXONE 1,000 MG in DEXTROSE 5% WATER 50 ML IV SCH (17:09)
[2020-04-02] MEDS: PANTOPRAZOLE SODIUM 40 MG/VIAL IV SCH (17:09)
[2020-04-02] MEDS: HYDROCODONE/ACETAMINOPHEN 5/325MG TABLET PO PRN (20:19)
[2020-04-03] VITALS: BP 107/59
[2020-04-03] MEDS: METOCLOPRAMIDE HCL 10MG/2ML VIAL IV SCH ×4 (00:53→17:40)
[2020-04-03 04:00] VITALS: BP 122/59
[2020-04-03] MEDS: SODIUM CHLORIDE 0.9% 1,000 ML IV SCH ×3 (06:13→23:51)
[2020-04-03] MEDS: BLOOD SUGAR DIAGNOSTIC STRIP TEST SCH ×4 (06:30→20:35)
[2020-04-03] MEDS: INSULIN LISPRO 100 UNITS/ML SUBCUT SCH ×7 (06:31→20:35)
[2020-04-03 08:00] VITALS: BP 204/76
[2020-04-03] MEDS: LISINOPRIL 20MG TABLET PO SCH ×2 (08:30→20:35)
[2020-04-03] MEDS: PANTOPRAZOLE SODIUM 40 MG/VIAL IV SCH ×2 (08:30→17:31)
[2020-04-03] MEDS: ENOXAPARIN 30MG/0.3ML SYR SUBCUT SCH ×2 (08:31→20:34)
[2020-04-03] MEDS: HYDROCODONE/ACETAMINOPHEN 5/325MG TABLET PO PRN (09:04)
[2020-04-03] MEDS: INSULIN GLARGINE UD 100 UNITS/ML SYR SUBCUT SCH ×2 (10:43→22:54)
[2020-04-03 11:17] LABS: CHLORIDE 104 mEq/L (98-107)
[2020-04-03 11:19] LABS: BASOPHILS % 0.8 % (0.0-2.0); EOSINOPHILS % 0.5 % (0.0-5.0); LYMPHOCYTES % 24.3 % (20.0-50.0); MEAN CORPUSCULAR HEMOGLOBIN 29.5 pg (28.0-32.0); MEAN PLATELET VOLUME 8.5 fl (7.4-10.4); MONOCYTES % 5.3 % (2.0-8.0); NEUTROPHILS % 69.1 % (40.0-76.0); PLATELET 327 x1000/uL (130-400); RED BLOOD CELL COUNT 5.48 mill/uL (4.2-5.4); RED CELL DISTRIBUTION WIDTH 13.7 % (11.6-14.6)
[2020-04-03 11:24] LABS: HEMATOCRIT. 47.6 % (36.0-48.0); HEMOGLOBIN. 16.1 g/dL (12.0-16.0)
[2020-04-03 11:51] VITALS: BP 137/82
[2020-04-03] MEDS ORDERED: POTASSIUM CHLORIDE 20MEQ TABLET SR PO SCH (13:00)
[2020-04-03 16:00] VITALS: BP 110/53
[2020-04-03] MEDS: CEFTRIAXONE 1,000 MG in DEXTROSE 5% WATER 50 ML IV SCH (17:31)
[2020-04-03] MEDS ORDERED: CLONIDINE 0.2MG TABLET PO PRN (19:45)
[2020-04-03 20:00] VITALS: BP 107/60
[2020-04-03] MEDS: DOCUSATE SODIUM 250MG CAPSULE PO SCH (22:55)
[2020-04-04] VITALS: BP 146/57
[2020-04-04 04:00] VITALS: BP 134/82
[2020-04-04] MEDS: HYDROCODONE/ACETAMINOPHEN 5/325MG TABLET PO PRN (04:59)
[2020-04-04] MEDS: METOCLOPRAMIDE HCL 10MG/2ML VIAL IV SCH ×3 (06:06→12:37)
[2020-04-04] MEDS: BLOOD SUGAR DIAGNOSTIC STRIP TEST SCH ×2 (06:29→12:01)
[2020-04-04] MEDS: INSULIN LISPRO 100 UNITS/ML SUBCUT SCH ×3 (06:29→12:37)
[2020-04-04 07:32] LABS: BASOPHILS % 0.7 % (0.0-2.0); EOSINOPHILS % 1.5 % (0.0-5.0); HEMATOCRIT. 40.6 % (36.0-48.0); HEMOGLOBIN. 13.5 g/dL (12.0-16.0); LYMPHOCYTES % 31.7 % (20.0-50.0); MEAN CORPUSCULAR HEMOGLOBIN 29.4 pg (28.0-32.0); MEAN CORPUSCULAR VOLUME 88.6 fL (81.0-99.0); MEAN PLATELET VOLUME 8.5 fl (7.4-10.4); NEUTROPHILS % 60.1 % (40.0-76.0); PLATELET 268 x1000/uL (130-400); RED BLOOD CELL COUNT 4.58 mill/uL (4.2-5.4)
[2020-04-04 07:35] LABS: CHLORIDE 106 mEq/L (98-107)
[2020-04-04 07:56] VITALS: BP 123/62
[2020-04-04] MEDS: ENOXAPARIN 30MG/0.3ML SYR SUBCUT SCH (08:54)
[2020-04-04] MEDS: DOCUSATE SODIUM 250MG CAPSULE PO SCH (08:54)
[2020-04-04] MEDS: PANTOPRAZOLE SODIUM 40 MG/VIAL IV SCH (08:54)
[2020-04-04] MEDS: LISINOPRIL 20MG TABLET PO SCH (08:55)
[2020-04-04] MEDS: INSULIN GLARGINE UD 100 UNITS/ML SYR SUBCUT SCH (09:50)
[2020-04-04] MEDS: SODIUM CHLORIDE 0.9% 1,000 ML IV SCH (09:54)
[2020-04-04] MEDS ORDERED: LEVO500T2 MT (10:51)
[2020-04-04] MEDS ORDERED: METO10TA3 MT (10:51)
[2020-04-04] MEDS ORDERED: INSU100I28 SQ (10:51)
[2020-04-04] MEDS ORDERED: POTASSIUM CHLORIDE 20MEQ TABLET SR PO NR (11:00)
[2020-04-04 12:00] VITALS: BP 173/80
[2020-04-04 13:36] VITALS: BP 152/74
== END 2020-04-04 14:50 | disposition home or self-care (01) | DRG 48 ==
LOC: ER 18:11 → MICUSO 20:45 → EDBEDREQTM 20:46 → EDBEDREQ 20:46 → EDBEDREQSVC 20:46 → MICUNO 23:41 → 8WST 04-01 03:00
PROVIDERS: ADMIT Internal Medicine; ATTEND Internal Medicine
DX: E11.43 Type 2 diabetes mellitus with diabetic autonomic (poly)neuropathy (principal); K31.84 Gastroparesis; E11.65 Type 2 diabetes mellitus with hyperglycemia; E66.09 Other obesity due to excess calories; E87.1 Hypo-osmolality and hyponatremia; I10 Essential (primary) hypertension; F32.9 Major depressive disorder, single episode, unspecified; G89.29 Other chronic pain; K76.0 Fatty (change of) liver, not elsewhere classified; F12.90 Cannabis use, unspecified, uncomplicated; J45.909 Unspecified asthma, uncomplicated; R16.0 Hepatomegaly, not elsewhere classified; F17.210 Nicotine dependence, cigarettes, uncomplicated; Z79.2 Long term (current) use of antibiotics; Z79.4 Long term (current) use of insulin; Z79.84 Long term (current) use of oral hypoglycemic drugs; Z79.899 Other long term (current) drug therapy; Z79.82 Long term (current) use of aspirin; K52.9 Noninfective gastroenteritis and colitis, unspecified; N39.0 Urinary tract infection, site not specified; R65.10 Systemic inflammatory response syndrome (SIRS) of non-infectious origin without acute organ dysfunction
CPT/HCPCS: 36415; 71045; 74177; 76705; 80048; 80053; 80305; 81003; 82962; 83036; 83605; 84145; 84484; 85025; 93005; 99285; C9113; J0696; J1650; J1815; J2270; J2405; J2765; J3480; J3490; J7030; J7050; J7060; Q9967

== ENCOUNTER 2020-05-12 09:42 | Emergency (ER) | payer OTHER ==
[~2020-05-12] VITALS: Ht 165.1 cm; Wt 89.0 kg
[~2020-05-12 09:42] MED LIST changes: -ASPI-1497 PO; -GABA-531; -HALO10TA13; +INSU100I28 SQ; -METF-414; +METO10TA3 MT; -[UNRECOGNIZED DRUG - CODE] MC
[2020-05-12] MEDS ORDERED: ONDANSETRON HCL 4MG/2ML INJ IV STA (10:34)
[2020-05-12] MEDS ORDERED: MORPHINE SULFATE 4 MG/ML CPJ (NOT FOR IM USE) IV STA (10:34)
[2020-05-12] MEDS ORDERED: SODIUM CHLORIDE 0.9% 1,000 ML IV ONE (10:45)
[2020-05-12 10:52] LABS: BASOPHILS % 0.3 % (0.0-2.0); EOSINOPHILS % 0.3 % (0.0-5.0); HEMATOCRIT. 46.4 % (36.0-48.0); HEMOGLOBIN. 15.7 g/dL (12.0-16.0); LYMPHOCYTES % 17.6 % (20.0-50.0); MEAN CORPUSCULAR HEMOGLOBIN 29.2 pg (28.0-32.0); MEAN CORPUSCULAR VOLUME 86.5 fL (81.0-99.0); MEAN PLATELET VOLUME 8.5 fl (7.4-10.4); MONOCYTES % 2.6 % (2.0-8.0); NEUTROPHILS % 79.2 % (40.0-76.0); PLATELET 325 x1000/uL (130-400); RED BLOOD CELL COUNT 5.36 mill/uL (4.2-5.4); RED CELL DISTRIBUTION WIDTH 14.1 % (11.6-14.6)
[2020-05-12 10:58] LABS: CHLORIDE 103 mEq/L (98-107)
[2020-05-12 11:00] LABS: PROTHROMBIN TIME 10.3 sec (9.6-11.0)
[2020-05-12] MEDS ORDERED: ONDANSETRON HCL 4MG/2ML INJ IV ONE (12:15)
[2020-05-12 14:28] LABS: CLARITY URINE CLEAR (CLEAR); COLOR URINE YELLOW (YELLOW); KETONES URINE 3+ (NEGATIVE); LEUKOCYTE ESTERASE URINE NEGATIVE (NEGATIVE); NITRITE URINE POSITIVE (NEGATIVE); OCCULT BLOOD URINE TRACE (NEGATIVE); PH URINE 5.5 (4.5-8.0); PROTEIN URINE 2+ (NEGATIVE); SPECIFIC GRAVITY URINE 1.028 (1.005-1.030); UROBILINOGEN URINE 0.2 E.U./dL (0.2-1.0)
[2020-05-12] MEDS ORDERED: ENALAPRIL 2.5MG/2ML VIAL 2ML IV ONE (14:30)
[2020-05-12] MEDS ORDERED: MORPHINE SULFATE 4 MG/ML CPJ (NOT FOR IM USE) IV ONE (15:30)
[2020-05-12 15:44] VITALS: BP 185/55
== END 2020-05-12 17:02 | disposition short-term general hospital (02) ==
LOC: ER 09:50 → CANBEDREQ 19:19
DX: R11.2 Nausea with vomiting, unspecified (principal); R10.9 Unspecified abdominal pain; J45.909 Unspecified asthma, uncomplicated; F32.9 Major depressive disorder, single episode, unspecified; E11.9 Type 2 diabetes mellitus without complications; I10 Essential (primary) hypertension; Z79.4 Long term (current) use of insulin; Z79.899 Other long term (current) drug therapy
CPT/HCPCS: 36415; 71045; 74176; 80053; 81003; 83690; 84484; 85025; 85610; 87635; 93005; 96361; 96374; 96375; 96376; 99285; C9803; J2270; J2405; J3490; J7030

== ENCOUNTER 2020-05-21 18:44 | Emergency (ER) | payer OTHER ==
[~2020-05-21] VITALS: Ht 165.1 cm; Wt 100.0 kg
[2020-05-21] MEDS ORDERED: METOCLOPRAMIDE HCL 10MG/2ML VIAL IV STA (19:50)
[2020-05-21] MEDS ORDERED: MORPHINE SULFATE 4 MG/ML CPJ (NOT FOR IM USE) IV STA (19:50)
[2020-05-21] MEDS ORDERED: SODIUM CHLORIDE 0.9% 1,000 ML IV ONE (20:00)
[2020-05-21 20:22] LABS: BASOPHILS % 0.5 % (0.0-2.0); EOSINOPHILS % 0.3 % (0.0-5.0); HEMATOCRIT. 43.1 % (36.0-48.0); HEMOGLOBIN. 14.6 g/dL (12.0-16.0); MEAN CORPUSCULAR HEMOGLOBIN 29.1 pg (28.0-32.0); MEAN CORPUSCULAR VOLUME 85.8 fL (81.0-99.0); MEAN PLATELET VOLUME 8.9 fl (7.4-10.4); NEUTROPHILS % 81.2 % (40.0-76.0); PLATELET 333 x1000/uL (130-400); RED BLOOD CELL COUNT 5.02 mill/uL (4.2-5.4); RED CELL DISTRIBUTION WIDTH 13.8 % (11.6-14.6)
[2020-05-21 20:29] LABS: CHLORIDE 99 mEq/L (98-107)
[2020-05-21 20:34] LABS: PROTHROMBIN TIME 10.9 sec (9.6-11.0)
[2020-05-21] MEDS ORDERED: IOHEXOL-300 100 ML BOTTLE ONE (21:41)
[2020-05-21] MEDS ORDERED: MORPHINE SULFATE 4 MG/ML CPJ (NOT FOR IM USE) IV ONE (22:15)
[2020-05-21] MEDS ORDERED: FAMOTIDINE 20MG/2ML VIAL IV ONE (22:45)
[2020-05-21] MEDS ORDERED: ONDANSETRON HCL 4MG/2ML INJ IV ONE (22:45)
[2020-05-21 22:47] LABS: CLARITY URINE CLEAR (CLEAR); COLOR URINE YELLOW (YELLOW); KETONES URINE 3+ (NEGATIVE); LEUKOCYTE ESTERASE URINE NEGATIVE (NEGATIVE); NITRITE URINE NEGATIVE (NEGATIVE); OCCULT BLOOD URINE NEGATIVE (NEGATIVE); PH URINE 6.5 (4.5-8.0); PROTEIN URINE NEGATIVE (NEGATIVE); SPECIFIC GRAVITY URINE 1.027 (1.005-1.030); UROBILINOGEN URINE 0.2 E.U./dL (0.2-1.0)
[2020-05-22 03:12] VITALS: BP 126/71
== END 2020-05-22 03:15 | disposition home or self-care (01) ==
LOC: ER 18:44 → CANBEDREQ 05-22 05:30
DX: R10.84 Generalized abdominal pain (principal); R11.2 Nausea with vomiting, unspecified; J45.909 Unspecified asthma, uncomplicated; E11.9 Type 2 diabetes mellitus without complications; I10 Essential (primary) hypertension; Z79.4 Long term (current) use of insulin; Z79.899 Other long term (current) drug therapy
CPT/HCPCS: 36415; 71045; 74177; 80053; 81003; 83605; 83690; 84484; 85025; 85610; 93005; 96361; 96374; 96375; 96376; 99285; J2270; J2405; J2765; J3490; J7030; Q9967

== ENCOUNTER 2020-07-13 00:48 | Emergency (ER) | payer MEDICAID, OTHER ==
[~2020-07-13] VITALS: Ht 172.7 cm; Wt 113.0 kg
[~2020-07-13 00:48] MED LIST changes: -LEVO500T2 MT; +aspirin
[2020-07-13 00:50] VITALS: BP 154/80
[2020-07-13 08:06] LABS: BASOPHILS % 0.4 % (0.0-2.0); EOSINOPHILS % 0.3 % (0.0-5.0); HEMATOCRIT. 43.7 % (36.0-48.0); HEMOGLOBIN. 14.7 g/dL (12.0-16.0); LYMPHOCYTES % 15.2 % (20.0-50.0); MEAN CORPUSCULAR HEMOGLOBIN 29.4 pg (28.0-32.0); MEAN CORPUSCULAR VOLUME 87.4 fL (81.0-99.0); MEAN PLATELET VOLUME 8.1 fl (7.4-10.4); MONOCYTES % 3.6 % (2.0-8.0); NEUTROPHILS % 80.5 % (40.0-76.0); PLATELET 252 x1000/uL (130-400)
[2020-07-13] MEDS ORDERED: ONDANSETRON HCL 4MG/2ML INJ IV STA (08:08)
[2020-07-13] MEDS ORDERED: SODIUM CHLORIDE 0.9% 1,000 ML IV ONE (08:15)
[2020-07-13] MEDS ORDERED: LORAZEPAM 2MG/ML CPJ IV ONE (08:15)
[2020-07-13 08:16] LABS: CHLORIDE 103 mEq/L (98-107); INR 1.1; PROTHROMBIN TIME 11.1 sec (9.6-11.0)
[2020-07-13 08:20] LABS: ETHANOL BLOOD < 10 mg/dL
[2020-07-13] MEDS ORDERED: DICYCLOMINE HCL 10MG/ML 2ML AMP IM ONE (09:45)
[2020-07-13 11:01] LABS: *AMPHETAMINES SCREEN URINE NEGATIVE (NEGATIVE); *BARBITURATES SCREEN URINE NEGATIVE (NEGATIVE); *BENZODIAZEPINES SCREEN URINE NEGATIVE (NEGATIVE); *COCAINE SCREEN URINE NEGATIVE (NEGATIVE)
[2020-07-13 11:02] LABS: CANNABINOID URINE SCREEN PRESUMTIVE POSITIVE (NEGATIVE); METHADONE URINE SCREEN NEGATIVE (NEGATIVE); OPIATES URINE SCREEN NEGATIVE (NEGATIVE); PHENCYCLIDINE URINE SCREEN NEGATIVE (NEGATIVE)
== END 2020-07-13 13:11 | disposition home or self-care (01) ==
LOC: ER 00:48
DX: K31.84 Gastroparesis (principal); E11.65 Type 2 diabetes mellitus with hyperglycemia; R11.2 Nausea with vomiting, unspecified; J45.909 Unspecified asthma, uncomplicated; I10 Essential (primary) hypertension; Z79.4 Long term (current) use of insulin; Z79.82 Long term (current) use of aspirin; Z53.29 Procedure and treatment not carried out because of patient's decision for other reasons; Z79.899 Other long term (current) drug therapy
CPT/HCPCS: 36415; 71045; 74176; 80053; 80305; 80320; 82962; 83690; 84484; 85025; 85610; 93005; 96361; 96372; 96374; 96375; 99285; J0500; J2060; J2405; J7030; G0480

== ENCOUNTER 2020-08-29 10:16 | Emergency (ER) | payer OTHER ==
[~2020-08-29] VITALS: Ht 162.6 cm; Wt 97.5 kg
[~2020-08-29 10:16] MED LIST changes: -METO25TA6; -PANT40TA4 PO; +PANT40TA51 PO; -SERT50TA12 PO; -aspirin
[2020-08-29] MEDS ORDERED: MORPHINE SULFATE 4 MG/ML CPJ (NOT FOR IM USE) IV STA (10:30)
[2020-08-29] MEDS ORDERED: FAMOTIDINE 20MG/2ML VIAL IV STA (10:30)
[2020-08-29] MEDS ORDERED: ONDANSETRON HCL 4MG/2ML INJ IV STA (10:30)
[2020-08-29] MEDS ORDERED: SODIUM CHLORIDE 0.9% 1,000 ML IV ONE (10:30)
[2020-08-29 11:53] LABS: BASOPHILS % 0.7 % (0.0-2.0); EOSINOPHILS % 0.4 % (0.0-5.0); HEMOGLOBIN. 15.3 g/dL (12.0-16.0); LYMPHOCYTES % 19.4 % (20.0-50.0); MEAN CORPUSCULAR HEMOGLOBIN 29.3 pg (28.0-32.0); MEAN PLATELET VOLUME 8.6 fl (7.4-10.4); MONOCYTES % 4.8 % (2.0-8.0); NEUTROPHILS % 74.7 % (40.0-76.0); PLATELET 280 x1000/uL (130-400); RED BLOOD CELL COUNT 5.23 mill/uL (4.2-5.4); RED CELL DISTRIBUTION WIDTH 13.9 % (11.6-14.6)
[2020-08-29 11:58] LABS: CHLORIDE 100 mEq/L (98-107)
[2020-08-29 12:05] LABS: INR 0.9; PROTHROMBIN TIME 9.8 sec (9.6-11.0)
[2020-08-29] MEDS ORDERED: KETOROLAC 30MG/ML VIAL IV ONE (13:45)
[2020-08-29] MEDS ORDERED: MORPHINE SULFATE 4 MG/ML CPJ (NOT FOR IM USE) IV ONE ×2 (15:00→19:45)
[2020-08-29] MEDS ORDERED: ONDANSETRON HCL 4MG/2ML INJ IV ONE ×2 (15:00→19:45)
[2020-08-29] MEDS ORDERED: INSULIN REGULAR (HUMULIN R) 300UNITS/3ML VIAL SUBCUT ONE (19:45)
[2020-08-29 20:25] VITALS: BP 159/64
== END 2020-08-29 21:47 | disposition short-term general hospital (02) ==
LOC: ER 10:32
DX: R10.13 Epigastric pain (principal); E11.9 Type 2 diabetes mellitus without complications; I10 Essential (primary) hypertension; J45.909 Unspecified asthma, uncomplicated; F12.10 Cannabis abuse, uncomplicated; Z79.4 Long term (current) use of insulin
CPT/HCPCS: 36415; 74176; 80053; 82962; 83690; 84484; 85025; 85610; 93005; 96361; 96372; 96374; 96375; 96376; 99285; J1815; J1885; J2270; J2405; J3490; J7030

== ENCOUNTER 2020-09-01 17:12 | Emergency (ER) | payer OTHER ==
[~2020-09-01] VITALS: Ht 170.2 cm; Wt 92.0 kg
[2020-09-01] MEDS ORDERED: DICYCLOMINE 10 MG/5 ML ORAL SYR PO STA (17:21)
[2020-09-01] MEDS ORDERED: VISCOUS LIDOCAINE 2% 15 ML UDC PO STA (17:21)
[2020-09-01] MEDS ORDERED: MAGNESIUM/ALUMINUM HYDROXIDE/SIMETHICONE 30ML UDC PO STA (17:21)
[2020-09-01 17:47] LABS: BASOPHILS % 0.3 % (0.0-2.0); EOSINOPHILS % 0.6 % (0.0-5.0); LYMPHOCYTES % 16.4 % (20.0-50.0); MEAN CORPUSCULAR HEMOGLOBIN 28.8 pg (28.0-32.0); MEAN CORPUSCULAR VOLUME 86.6 fL (81.0-99.0); MEAN PLATELET VOLUME 8.1 fl (7.4-10.4); MONOCYTES % 4.5 % (2.0-8.0); NEUTROPHILS % 78.2 % (40.0-76.0); PLATELET 323 x1000/uL (130-400); RED BLOOD CELL COUNT 5.55 mill/uL (4.2-5.4); RED CELL DISTRIBUTION WIDTH 14.1 % (11.6-14.6)
[2020-09-01 17:54] LABS: CHLORIDE 99 mEq/L (98-107)
[2020-09-01 21:30] VITALS: BP 167/84
== END 2020-09-01 21:30 | disposition home or self-care (01) ==
LOC: ER 17:17
DX: R10.33 Periumbilical pain (principal); I10 Essential (primary) hypertension; E11.9 Type 2 diabetes mellitus without complications; Z87.19 Personal history of other diseases of the digestive system
CPT/HCPCS: 36415; 74176; 80053; 85025; 93005; 99285

== ENCOUNTER 2020-10-22 15:35 | Emergency (ER) | payer OTHER ==
[~2020-10-22] VITALS: Ht 162.6 cm; Wt 92.0 kg
[2020-10-22] MEDS ORDERED: HYDROCODONE/ACETAMINOPHEN 5/325MG TABLET PO STA (23:06)
[2020-10-22] MEDS ORDERED: ONDANSETRON 4MG ODT PO ONE (23:15)
[2020-10-23 00:47] LABS: BASOPHILS % 0.8 % (0.0-2.0); EOSINOPHILS % 0.1 % (0.0-5.0); HEMATOCRIT. 43.8 % (36.0-48.0); HEMOGLOBIN. 14.9 g/dL (12.0-16.0); LYMPHOCYTES % 10.5 % (20.0-50.0); MEAN CORPUSCULAR HEMOGLOBIN 29.4 pg (28.0-32.0); MEAN CORPUSCULAR VOLUME 86.6 fL (81.0-99.0); MEAN PLATELET VOLUME 8.4 fl (7.4-10.4); MONOCYTES % 1.6 % (2.0-8.0); PLATELET 281 x1000/uL (130-400); RED BLOOD CELL COUNT 5.06 mill/uL (4.2-5.4); RED CELL DISTRIBUTION WIDTH 14.1 % (11.6-14.6)
[2020-10-23 00:51] LABS: CHLORIDE 103 mEq/L (98-107)
[2020-10-23] MEDS ORDERED: ONDA4TAB5 MT (02:43)
[2020-10-23] MEDS ORDERED: FAMO-135 MT (02:43)
[2020-10-23 03:20] VITALS: BP 133/88
== END 2020-10-23 04:35 | disposition home or self-care (01) ==
LOC: ER 15:35
DX: K29.70 Gastritis, unspecified, without bleeding (principal); R11.2 Nausea with vomiting, unspecified; J45.909 Unspecified asthma, uncomplicated; F32.9 Major depressive disorder, single episode, unspecified; E11.9 Type 2 diabetes mellitus without complications; I10 Essential (primary) hypertension; Z79.4 Long term (current) use of insulin; Z79.899 Other long term (current) drug therapy
CPT/HCPCS: 36415; 71045; 80053; 82962; 83880; 84484; 85025; 85379; 93005; 99285

== ENCOUNTER 2021-04-25 10:48 | Emergency (ER) | payer OTHER ==
[~2021-04-25] VITALS: Ht 170.2 cm; Wt 88.0 kg
[~2021-04-25 10:48] MED LIST changes: +FAMO-135 MT; +ONDA4TAB5 MT
[2021-04-25] MEDS ORDERED: MORPHINE SULFATE 4 MG/ML CPJ (NOT FOR IM USE) IV STA (11:17)
[2021-04-25] MEDS ORDERED: ONDANSETRON HCL 4MG/2ML INJ IV STA (11:17)
[2021-04-25] MEDS ORDERED: SODIUM CHLORIDE 0.9% 1,000 ML IV ONE (11:30)
[2021-04-25] MEDS ORDERED: MORPHINE SULFATE 2 MG/ML CPJ (NOT FOR IM USE) IV NR (11:45)
[2021-04-25 11:50] LABS: BASOPHILS % 0.6 % (0.0-2.0); EOSINOPHILS % 0.6 % (0.0-5.0); HEMATOCRIT. 40.2 % (36.0-48.0); LYMPHOCYTES % 16.7 % (20.0-50.0); MEAN CORPUSCULAR HEMOGLOBIN 30.7 pg (28.0-32.0); MEAN PLATELET VOLUME 8.1 fl (7.4-10.4); MONOCYTES % 3.6 % (2.0-8.0); NEUTROPHILS % 78.5 % (40.0-76.0); PLATELET 311 x1000/uL (130-400); RED BLOOD CELL COUNT 4.57 mill/uL (4.2-5.4); RED CELL DISTRIBUTION WIDTH 14.5 % (11.6-14.6)
[2021-04-25 11:57] LABS: CHLORIDE 106 mEq/L (98-107)
[2021-04-25 12:00] LABS: PROTHROMBIN TIME 10.3 sec (9.6-11.0)
[2021-04-25 12:04] LABS: ETHANOL BLOOD < 10 mg/dL
[2021-04-25] MEDS ORDERED: HALOPERIDOL LACTATE 5MG/ML VIAL IM ONE (13:15)
[2021-04-25 14:55] LABS: CLARITY URINE CLOUDY (CLEAR); COLOR URINE YELLOW (YELLOW); KETONES URINE 3+ (NEGATIVE); LEUKOCYTE ESTERASE URINE NEGATIVE (NEGATIVE); NITRITE URINE NEGATIVE (NEGATIVE); OCCULT BLOOD URINE NEGATIVE (NEGATIVE); PH URINE 6.5 (4.5-8.0); PROTEIN URINE 2+ (NEGATIVE); SPECIFIC GRAVITY URINE 1.023 (1.005-1.030); UROBILINOGEN URINE 0.2 E.U./dL (0.2-1.0)
[2021-04-25 16:08] VITALS: BP 125/65
== END 2021-04-25 16:13 | disposition home or self-care (01) ==
LOC: ER 10:48
DX: R10.11 Right upper quadrant pain (principal); I10 Essential (primary) hypertension; E11.9 Type 2 diabetes mellitus without complications; J45.909 Unspecified asthma, uncomplicated; Z79.899 Other long term (current) drug therapy; Z98.890 Other specified postprocedural states
CPT/HCPCS: 36415; 74176; 76705; 80053; 80320; 81003; 83690; 85025; 85610; 93005; 96361; 96372; 96374; 96375; 99285; J1630; J2270; J2405; J7030; Z7610; G0480

== ENCOUNTER 2021-09-16 07:02 | Inpatient (IN) | payer OTHER ==
[~2021-09-16] VITALS: Ht 162.6 cm; Wt 98.4 kg
[2021-09-16] MEDS ORDERED: FAMOTIDINE 20MG/2ML VIAL IV STA (07:30)
[2021-09-16] MEDS ORDERED: ONDANSETRON HCL 4MG/2ML INJ IV STA (07:30)
[2021-09-16] MEDS ORDERED: SODIUM CHLORIDE 0.9% 1,000 ML IV ONE ×2 (07:30→09:00)
[2021-09-16 08:23] LABS: BASOPHILS % 0.3 % (0.0-2.0); HEMATOCRIT. 49.7 % (36.0-48.0); HEMOGLOBIN. 16.1 g/dL (12.0-16.0); LYMPHOCYTES % 11.4 % (20.0-50.0); MEAN CORPUSCULAR HEMOGLOBIN 28.2 pg (28.0-32.0); MEAN CORPUSCULAR VOLUME 87.3 fL (81.0-99.0); MEAN PLATELET VOLUME 8.8 fl (7.4-10.4); MONOCYTES % 3.7 % (2.0-8.0); NEUTROPHILS % 84.6 % (40.0-76.0); PLATELET 364 x1000/uL (130-400); RED BLOOD CELL COUNT 5.69 mill/uL (4.2-5.4); RED CELL DISTRIBUTION WIDTH 14.3 % (11.6-14.6)
[2021-09-16 08:29] LABS: CHLORIDE 100 mEq/L (98-107)
[2021-09-16] MEDS ORDERED: KETOROLAC 30MG/ML VIAL IV ONE (08:45)
[2021-09-16 09:26] LABS: CLARITY URINE CLEAR (CLEAR); COLOR URINE YELLOW (YELLOW); KETONES URINE 4+ (NEGATIVE); LEUKOCYTE ESTERASE URINE NEGATIVE (NEGATIVE); NITRITE URINE NEGATIVE (NEGATIVE); OCCULT BLOOD URINE NEGATIVE (NEGATIVE); PROTEIN URINE 2+ (NEGATIVE); SPECIFIC GRAVITY URINE 1.036 (1.005-1.030); UROBILINOGEN URINE 0.2 E.U./dL (0.2-1.0)
[2021-09-16] MEDS ORDERED: INSULIN REGULAR (DRIP) 100 UNITS in SODIUM CHLORIDE 0.9% 99 ML IV ONE (09:30)
[2021-09-16 09:58] LABS: BG BASE EXCESS -3.5 mmol/L (-2.0-2.0); BG CARBOXYHEMOGLOBIN 0.9 % (0.5-1.5); BG DEOXYHEMOGLOBIN 2.5 % (0.0-5.0); BG FRACTION INSPIRED OXYGEN 21; BG HCO3 ACT 19.3 mmol/L (22.0-26.0); BG METHEMOGLOBIN 0.2 % (0.0-1.5); BG OXYGEN SATURATION 97.5 % (92.0-98.5); BG OXYHEMOGLOBIN 96.4 % (94.0-97.0); BG PCO2 29.8 mmHg (35.0-45.0); BG PO2 100.2 mmHg (75.0-100.0); BG SAMPLE SITE RIGHT BRACHIAL; BG TOTAL HEMOGLOBIN 15.9 g/dL (12.0-18.0); BG VENT MODE ROOM AIR
[2021-09-16] MEDS ORDERED: MAGNESIUM/ALUMINUM HYDROXIDE/SIMETHICONE 30ML UDC PO PRN (11:00)
[2021-09-16] MEDS ORDERED: CLONIDINE 0.1MG TABLET PO PRN (11:00)
[2021-09-16] MEDS ORDERED: ACETAMINOPHEN 325MG TABLET PO PRN (11:00)
[2021-09-16] MEDS ORDERED: DEXTROSE 50% WATER 50ML SYRINGE IV PRN ×2 (11:00)
[2021-09-16] MEDS ORDERED: INSULIN REGULAR 100U/100ML PMX 100 ML IV SCH (11:15)
[2021-09-16] MEDS ORDERED: INSULIN GLARGINE UD 100 UNITS/ML SYR SUBCUT SCH (13:00)
[2021-09-16 13:02] LABS: CHLORIDE 105 mEq/L (98-107)
[2021-09-16] MEDS: HYDROCODONE/ACETAMINOPHEN 5/325MG TABLET PO PRN (13:18)
[2021-09-16] MEDS: METOCLOPRAMIDE HCL 10MG/2ML VIAL IV SCH ×2 (13:20→20:20)
[2021-09-16] MEDS: BLOOD SUGAR DIAGNOSTIC STRIP TEST SCH ×3 (13:27→20:20)
[2021-09-16] MEDS: AMLODIPINE 5MG TABLET PO SCH (15:18)
[2021-09-16] MEDS: INSULIN LISPRO 100 UNITS/ML SUBCUT SCH ×2 (15:25→20:20)
[2021-09-16] MEDS: POTASSIUM CHLORIDE INJ 10 MEQ in DEXT 5%/0.45% NACL 1000ML 1,000 ML IV SCH ×2 (15:42→20:03)
[2021-09-16 18:10] LABS: CHLORIDE 107 mEq/L (98-107)
[2021-09-16] MEDS ORDERED: NALOXONE HCL 0.4MG/ML VIAL IV PRN (19:00)
[2021-09-16] MEDS: HALOPERIDOL 5MG TABLET PO SCH (20:20)
[2021-09-16 22:50] LABS: CHLORIDE 104 mEq/L (98-107)
[2021-09-17] MEDS: METOCLOPRAMIDE HCL 10MG/2ML VIAL IV SCH ×4 (00:36→18:22)
[2021-09-17] MEDS: ENOXAPARIN 30MG/0.3ML SYR SUBCUT SCH ×3 (00:36→16:06)
[2021-09-17] MEDS: POTASSIUM CHLORIDE INJ 10 MEQ in DEXT 5%/0.45% NACL 1000ML 1,000 ML IV SCH (00:48)
[2021-09-17 01:15] LABS: CHLORIDE 105 mEq/L (98-107)
[2021-09-17] MEDS: HYDROCODONE/ACETAMINOPHEN 5/325MG TABLET PO PRN ×2 (04:39→21:24)
[2021-09-17 05:24] LABS: BASOPHILS % 0.7 % (0.0-2.0); EOSINOPHILS % 0.5 % (0.0-5.0); HEMATOCRIT. 40.7 % (36.0-48.0); HEMOGLOBIN. 13.4 g/dL (12.0-16.0); LYMPHOCYTES % 34.2 % (20.0-50.0); MEAN CORPUSCULAR HEMOGLOBIN 28.4 pg (28.0-32.0); MEAN CORPUSCULAR VOLUME 86.5 fL (81.0-99.0); MEAN PLATELET VOLUME 8.2 fl (7.4-10.4); MONOCYTES % 5.9 % (2.0-8.0); NEUTROPHILS % 58.7 % (40.0-76.0); PLATELET 262 x1000/uL (130-400); RED BLOOD CELL COUNT 4.71 mill/uL (4.2-5.4); RED CELL DISTRIBUTION WIDTH 14.3 % (11.6-14.6)
[2021-09-17 05:29] LABS: CHLORIDE 103 mEq/L (98-107)
[2021-09-17 05:36] LABS: PHOSPHORUS 2.8 mg/dL (2.5-4.9)
[2021-09-17] MEDS: OMEPRAZOLE 20MG CAPSULE EXTENDED RELEASE PO SCH (06:12)
[2021-09-17] MEDS: BLOOD SUGAR DIAGNOSTIC STRIP TEST SCH ×3 (06:24→21:16)
[2021-09-17] MEDS ORDERED: SODIUM CHLORIDE 0.9% 1,000 ML IV SCH (07:00)
[2021-09-17] MEDS ORDERED: DEXTROSE 50% WATER 50ML SYRINGE IV PRN ×2 (07:00)
[2021-09-17] MEDS ORDERED: BLOOD SUGAR DIAGNOSTIC STRIP TEST SCH (07:00)
[2021-09-17] MEDS ORDERED: INSULIN REGULAR 100U/100ML PMX 100 ML IV SCH (07:00)
[2021-09-17] MEDS: AMLODIPINE 5MG TABLET PO SCH (09:00)
[2021-09-17] MEDS: SODIUM CHLORIDE 0.9% 1,000 ML IV SCH ×2 (09:38→18:12)
[2021-09-17 09:48] LABS: *COCAINE SCREEN URINE NEGATIVE (NEGATIVE); METHADONE URINE SCREEN NEGATIVE (NEGATIVE); OPIATES URINE SCREEN NEGATIVE (NEGATIVE)
[2021-09-17 09:50] LABS: *AMPHETAMINES SCREEN URINE NEGATIVE (NEGATIVE); *BARBITURATES SCREEN URINE NEGATIVE (NEGATIVE); *BENZODIAZEPINES SCREEN URINE NEGATIVE (NEGATIVE); CANNABINOID URINE SCREEN PRESUMTIVE POSITIVE (NEGATIVE); PHENCYCLIDINE URINE SCREEN NEGATIVE (NEGATIVE)
[2021-09-17] MEDS: INSULIN GLARGINE UD 100 UNITS/ML SYR SUBCUT SCH ×2 (10:08→21:16)
[2021-09-17] MEDS: INSULIN LISPRO 100 UNITS/ML SUBCUT SCH ×3 (12:32→21:00)
[2021-09-17 13:00] VITALS: BP 145/71
[2021-09-17 14:42] VITALS: BP 145/71
[2021-09-17 20:15] VITALS: BP 140/74
[2021-09-17] MEDS: HALOPERIDOL 5MG TABLET PO SCH (21:12)
[2021-09-18] VITALS (9 sets, daily range): BP systolic 110–163; BP diastolic 54–78
[2021-09-18] MEDS: METOCLOPRAMIDE HCL 10MG/2ML VIAL IV SCH ×3 (00:02→13:58)
[2021-09-18] MEDS: ENOXAPARIN 30MG/0.3ML SYR SUBCUT SCH ×2 (00:02→13:32)
[2021-09-18] MEDS: SODIUM CHLORIDE 0.9% 1,000 ML IV SCH ×2 (05:50→08:59)
[2021-09-18] MEDS: OMEPRAZOLE 20MG CAPSULE EXTENDED RELEASE PO SCH (05:51)
[2021-09-18] MEDS: INSULIN LISPRO 100 UNITS/ML SUBCUT SCH ×2 (06:42→13:40)
[2021-09-18 07:43] LABS: BASOPHILS % 0.5 % (0.0-2.0); EOSINOPHILS % 1.9 % (0.0-5.0); HEMOGLOBIN. 13.3 g/dL (12.0-16.0); LYMPHOCYTES % 41.7 % (20.0-50.0); MEAN CORPUSCULAR HEMOGLOBIN 28.8 pg (28.0-32.0); MEAN CORPUSCULAR VOLUME 86.5 fL (81.0-99.0); MEAN PLATELET VOLUME 8.8 fl (7.4-10.4); MONOCYTES % 5.1 % (2.0-8.0); NEUTROPHILS % 50.8 % (40.0-76.0); PLATELET 256 x1000/uL (130-400); RED BLOOD CELL COUNT 4.63 mill/uL (4.2-5.4); RED CELL DISTRIBUTION WIDTH 13.7 % (11.6-14.6)
[2021-09-18] MEDS: BLOOD SUGAR DIAGNOSTIC STRIP TEST SCH ×3 (08:05→17:10)
[2021-09-18 08:12] LABS: CHLORIDE 107 mEq/L (98-107)
[2021-09-18] MEDS: AMLODIPINE 5MG TABLET PO SCH (08:54)
[2021-09-18] MEDS ORDERED: SERT-422 PO (09:27)
[2021-09-18] MEDS ORDERED: SERTRALINE HCL 50MG TABLET PO SCH (10:00)
[2021-09-18] MEDS ORDERED: SERTRALINE HCL 25MG TABLET PO SCH (10:00)
[2021-09-18] MEDS: INSULIN GLARGINE UD 100 UNITS/ML SYR SUBCUT SCH (10:15)
[2021-09-25] MEDS ORDERED: ATOR80TA PO (02:48)
[2021-09-25] MEDS ORDERED: APIX5TAB PO (02:48)
[2021-09-25] MEDS ORDERED: NIFE-33 PO (02:48)
[2021-09-25] MEDS ORDERED: GABA-529 PO (02:48)
[2021-09-25] MEDS ORDERED: INSU100I28 SQ (21:02)
== END 2021-09-18 18:30 | disposition home or self-care (01) | DRG 48 ==
LOC: ER 07:02 → EDBEDREQ 09:55 → MICUSO 10:08 → EDBEDREQSVC 09-17 09:25 → ENRESERV 09-17 11:10 → EDBEDREQSVC 09-17 11:28 → 8WST 09-17 14:34
PROVIDERS: ADMIT Internal Medicine; ATTEND Internal Medicine
DX: E11.43 Type 2 diabetes mellitus with diabetic autonomic (poly)neuropathy (principal); K85.90 Acute pancreatitis without necrosis or infection, unspecified; E11.10 Type 2 diabetes mellitus with ketoacidosis without coma; I10 Essential (primary) hypertension; K31.84 Gastroparesis; K21.9 Gastro-esophageal reflux disease without esophagitis; Z20.822 Contact with and (suspected) exposure to COVID-19; F32.A Depression, unspecified; J45.909 Unspecified asthma, uncomplicated; Z79.899 Other long term (current) drug therapy; Z79.4 Long term (current) use of insulin
CPT/HCPCS: 36415; 36600; 73501; 74176; 76700; 80048; 80053; 80076; 80305; 81003; 82010; 82375; 82805; 82962; 83036; 83735; 84100; 85025; 87426; 93005; 99291; J1630; J1650; J1815; J1885; J2405; J2765; J3480; J3490; J7030; J7050

== ENCOUNTER 2021-12-03 20:23 | Inpatient (IN) | payer OTHER ==
[~2021-12-03] VITALS: Ht 162.6 cm; Wt 103.6 kg
[~2021-12-03 20:23] MED LIST changes: +APIX5TAB PO; +ATOR80TA PO; +GABA-529 PO; -HAL5 MT; +HALO5TAB2 MT; +NIFE-33 PO; +SERT-422 PO
[2021-12-03] MEDS ORDERED: ONDANSETRON HCL 4MG/2ML INJ IV STA (21:23)
[2021-12-03] MEDS ORDERED: FAMOTIDINE 20MG/2ML VIAL IV STA (21:23)
[2021-12-03] MEDS ORDERED: MORPHINE SULFATE 4 MG/ML CPJ (NOT FOR IM USE) IV STA (21:23)
[2021-12-03] MEDS ORDERED: SODIUM CHLORIDE 0.9% 1,000 ML IV ONE (21:30)
[2021-12-03] MEDS ORDERED: FAMOTIDINE 20MG/2ML VIAL IV NR (23:00)
[2021-12-03 23:31] LABS: BASOPHILS % 0.2 % (0.0-2.0); EOSINOPHILS % 0.1 % (0.0-5.0); HEMATOCRIT. 44.7 % (36.0-48.0); LYMPHOCYTES % 13.8 % (20.0-50.0); MEAN CORPUSCULAR HEMOGLOBIN 28.8 pg (28.0-32.0); MEAN CORPUSCULAR VOLUME 86.2 fL (81.0-99.0); MEAN PLATELET VOLUME 8.4 fl (7.4-10.4); MONOCYTES % 2.7 % (2.0-8.0); NEUTROPHILS % 83.2 % (40.0-76.0); PLATELET 275 x1000/uL (130-400); RED BLOOD CELL COUNT 5.19 mill/uL (4.2-5.4); RED CELL DISTRIBUTION WIDTH 13.9 % (11.6-14.6)
[2021-12-03 23:46] LABS: CHLORIDE 106 mEq/L (98-107)
[2021-12-03 23:55] LABS: BETA HYDROXYBUTYRATE 2.3 mMol/L (0.0-0.3); ETHANOL BLOOD < 10 mg/dL
[2021-12-04 00:08] LABS: CLARITY URINE CLOUDY (CLEAR); COLOR URINE YELLOW (YELLOW); KETONES URINE 4+ (NEGATIVE); LEUKOCYTE ESTERASE URINE TRACE (NEGATIVE); NITRITE URINE NEGATIVE (NEGATIVE); OCCULT BLOOD URINE NEGATIVE (NEGATIVE); PROTEIN URINE 1+ (NEGATIVE); UROBILINOGEN URINE 0.2 E.U./dL (0.2-1.0)
[2021-12-04 00:26] LABS: *AMPHETAMINES SCREEN URINE NEGATIVE (NEGATIVE); *BARBITURATES SCREEN URINE NEGATIVE (NEGATIVE); *BENZODIAZEPINES SCREEN URINE NEGATIVE (NEGATIVE); *COCAINE SCREEN URINE NEGATIVE (NEGATIVE); CANNABINOID URINE SCREEN PRESUMTIVE POSITIVE (NEGATIVE); METHADONE URINE SCREEN NEGATIVE (NEGATIVE); OPIATES URINE SCREEN PRESUMTIVE POSITIVE (NEGATIVE); PHENCYCLIDINE URINE SCREEN NEGATIVE (NEGATIVE)
[2021-12-04] MEDS ORDERED: HYDRALAZINE 20MG/ML VIAL IV ONE (00:30)
[2021-12-04] MEDS ORDERED: CLONIDINE 0.1MG TABLET PO ONE (00:30)
[2021-12-04] MEDS ORDERED: INSULIN REGULAR (HUMULIN R) 300UNITS/3ML VIAL SUBCUT NR (01:15)
[2021-12-04] MEDS ORDERED: KETOROLAC 30MG/ML VIAL IV ONE (02:00)
[2021-12-04] MEDS ORDERED: ONDANSETRON HCL 4MG TABLET PO PRN (04:00)
[2021-12-04] MEDS ORDERED: CLONIDINE 0.1MG TABLET PO PRN ×2 (04:00→15:15)
[2021-12-04] MEDS: ONDANSETRON HCL 4MG/2ML INJ IV PRN ×2 (04:30→10:39)
[2021-12-04] MEDS: MORPHINE SULFATE 4 MG/ML CPJ (NOT FOR IM USE) IV PRN ×3 (04:30→21:08)
[2021-12-04] MEDS ORDERED: INSULIN LISPRO 100 UNITS/ML SUBCUT NR ×2 (06:30)
[2021-12-04] MEDS ORDERED: ACETAMINOPHEN 325MG TABLET PO PRN (15:15)
[2021-12-04] MEDS ORDERED: MAGNESIUM/ALUMINUM HYDROXIDE/SIMETHICONE 30ML UDC PO PRN (15:15)
[2021-12-04] MEDS ORDERED: DEXTROSE 50% WATER 50ML SYRINGE IV PRN ×2 (15:15)
[2021-12-04] MEDS ORDERED: NALOXONE HCL 0.4MG/ML VIAL IV PRN (15:15)
[2021-12-04] MEDS: INSULIN LISPRO 100 UNITS/ML SUBCUT SCH ×3 (20:07→22:50)
[2021-12-04] MEDS: BLOOD SUGAR DIAGNOSTIC STRIP TEST SCH (21:00)
[2021-12-04] MEDS: SODIUM CHLORIDE 0.9% 1,000 ML IV SCH (21:55)
[2021-12-04] MEDS: METOCLOPRAMIDE HCL 10MG/2ML VIAL IV SCH (22:16)
[2021-12-04] MEDS: ENOXAPARIN 30MG/0.3ML SYR SUBCUT SCH (22:17)
[2021-12-04] MEDS ORDERED: DIPHENHYDRAMINE 50MG/ML VIAL IV PRN ×2 (23:45)
[2021-12-04 23:56] VITALS: BP 144/72
[2021-12-05] MEDS: HYDROCODONE/ACETAMINOPHEN 5/325MG TABLET PO PRN ×2 (00:31→18:29)
[2021-12-05 04:00] VITALS: BP 122/66
[2021-12-05] MEDS: METOCLOPRAMIDE HCL 10MG/2ML VIAL IV SCH ×5 (05:27→23:25)
[2021-12-05] MEDS: BLOOD SUGAR DIAGNOSTIC STRIP TEST SCH ×4 (05:27→21:00)
[2021-12-05] MEDS: SODIUM CHLORIDE 0.9% 1,000 ML IV SCH ×3 (05:28→18:04)
[2021-12-05] MEDS: MORPHINE SULFATE 4 MG/ML CPJ (NOT FOR IM USE) IV PRN ×3 (05:31→23:20)
[2021-12-05 08:00] VITALS: BP 117/63
[2021-12-05] MEDS: PANTOPRAZOLE SODIUM 40 MG/VIAL IV SCH (09:08)
[2021-12-05] MEDS: ENOXAPARIN 30MG/0.3ML SYR SUBCUT SCH (09:09)
[2021-12-05 11:03] LABS: BASOPHILS % 0.4 % (0.0-2.0); EOSINOPHILS % 0.5 % (0.0-5.0); HEMATOCRIT. 43.7 % (36.0-48.0); HEMOGLOBIN. 14.4 g/dL (12.0-16.0); LYMPHOCYTES % 34.6 % (20.0-50.0); MEAN PLATELET VOLUME 8.3 fl (7.4-10.4); MONOCYTES % 5.3 % (2.0-8.0); NEUTROPHILS % 59.2 % (40.0-76.0); PLATELET 262 x1000/uL (130-400); RED BLOOD CELL COUNT 4.97 mill/uL (4.2-5.4); RED CELL DISTRIBUTION WIDTH 14.6 % (11.6-14.6)
[2021-12-05 11:17] LABS: CHLORIDE 103 mEq/L (98-107)
[2021-12-05 11:32] LABS: PHOSPHORUS 2.5 mg/dL (2.5-4.9)
[2021-12-05 12:00] VITALS: BP 128/64
[2021-12-05 12:04] VITALS: BP 143/69
[2021-12-05] MEDS: INSULIN LISPRO 100 UNITS/ML SUBCUT SCH ×3 (12:19→22:40)
[2021-12-05 16:00] VITALS: BP 119/63
[2021-12-05] MEDS: APIXABAN 5 MG TABLET PO SCH (16:41)
[2021-12-05] MEDS: GABAPENTIN 100MG CAPSULE PO SCH (16:42)
[2021-12-05] MEDS: NIFEDIPINE XL 30MG TAB PO SCH (16:45)
[2021-12-05 20:00] VITALS: BP 112/51
[2021-12-05] MEDS ORDERED: HALOPERIDOL 5MG TABLET PO SCH (21:00)
[2021-12-05] MEDS ORDERED: ATORVASTATIN CALCIUM 40MG TABLET PO SCH (21:00)
[2021-12-05] MEDS ORDERED: INSULIN GLARGINE 100 UNITS/ML SUBCUT SCH (22:00)
[2021-12-06] VITALS: BP 94/56
[2021-12-06] MEDS: SODIUM CHLORIDE 0.9% 1,000 ML IV SCH ×2 (00:35→06:20)
[2021-12-06] MEDS: HYDROCODONE/ACETAMINOPHEN 5/325MG TABLET PO PRN (03:18)
[2021-12-06 03:30] VITALS: BP 138/75
[2021-12-06] MEDS: METOCLOPRAMIDE HCL 10MG/2ML VIAL IV SCH ×2 (06:00→11:58)
[2021-12-06] MEDS: BLOOD SUGAR DIAGNOSTIC STRIP TEST SCH ×2 (06:20→11:58)
[2021-12-06 07:34] LABS: BASOPHILS % 0.4 % (0.0-2.0); EOSINOPHILS % 1.4 % (0.0-5.0); HEMOGLOBIN. 14.3 g/dL (12.0-16.0); LYMPHOCYTES % 37.5 % (20.0-50.0); MEAN CORPUSCULAR HEMOGLOBIN 29.1 pg (28.0-32.0); MEAN CORPUSCULAR VOLUME 87.5 fL (81.0-99.0); MEAN PLATELET VOLUME 8.4 fl (7.4-10.4); MONOCYTES % 6.5 % (2.0-8.0); NEUTROPHILS % 54.2 % (40.0-76.0); PLATELET 236 x1000/uL (130-400); RED BLOOD CELL COUNT 4.91 mill/uL (4.2-5.4); RED CELL DISTRIBUTION WIDTH 14.2 % (11.6-14.6)
[2021-12-06] MEDS: INSULIN LISPRO 100 UNITS/ML SUBCUT SCH ×2 (07:40→11:40)
[2021-12-06 08:00] VITALS: BP 125/85
[2021-12-06 08:12] LABS: CHLORIDE 103 mEq/L (98-107)
[2021-12-06] MEDS: GABAPENTIN 100MG CAPSULE PO SCH (08:42)
[2021-12-06] MEDS: APIXABAN 5 MG TABLET PO SCH (08:42)
[2021-12-06] MEDS: NIFEDIPINE XL 30MG TAB PO SCH (08:42)
[2021-12-06] MEDS: PANTOPRAZOLE SODIUM 40 MG/VIAL IV SCH (08:48)
[2021-12-06] MEDS ORDERED: SERTRALINE HCL 50MG TABLET PO SCH (09:00)
== END 2021-12-06 12:31 | disposition home or self-care (01) | DRG 241 ==
LOC: ER 20:23 → MICUSO 12-04 03:03 → 8WST 12-04 22:30 → 6EST 12-05 11:26
PROVIDERS: ADMIT Internal Medicine; ATTEND Internal Medicine
DX: K29.60 Other gastritis without bleeding (principal); E11.00 Type 2 diabetes mellitus with hyperosmolarity without nonketotic hyperglycemic-hyperosmolar coma (NKHHC); R65.10 Systemic inflammatory response syndrome (SIRS) of non-infectious origin without acute organ dysfunction; E87.1 Hypo-osmolality and hyponatremia; D72.829 Elevated white blood cell count, unspecified; E11.65 Type 2 diabetes mellitus with hyperglycemia; F12.90 Cannabis use, unspecified, uncomplicated; I10 Essential (primary) hypertension; J45.909 Unspecified asthma, uncomplicated; R11.2 Nausea with vomiting, unspecified; Z86.711 Personal history of pulmonary embolism; Z79.84 Long term (current) use of oral hypoglycemic drugs; Z79.899 Other long term (current) drug therapy
CPT/HCPCS: 36415; 71045; 76700; 80048; 80053; 80076; 80305; 80320; 81003; 82010; 82962; 83036; 83605; 83735; 84100; 84145; 84443; 85025; 93005; 93970; 99285; C9113; J0360; J1200; J1630; J1650; J1815; J1885; J2270; J2405; J2765; J3490; J7030; G0480

== ENCOUNTER 2021-12-09 03:24 | Inpatient (IN) | payer OTHER ==
[~2021-12-09] VITALS: Ht 172.7 cm; Wt 99.8 kg
[~2021-12-09 03:24] MED LIST changes: -AMLO5TAB88 PO; -FAMO-135 MT; +HAL5 MT; -HALO5TAB2 MT; -METO-293 MT; -NEED-122; -ONDA4TAB11; -ONDA4TAB5 MT
[2021-12-09] MEDS ORDERED: METOCLOPRAMIDE HCL 10MG/2ML VIAL IV STA (03:53)
[2021-12-09] MEDS ORDERED: SODIUM CHLORIDE 0.9% 1,000 ML IV ONE ×2 (04:00→08:00)
[2021-12-09 04:44] LABS: BASOPHILS % 0.5 % (0.0-2.0); EOSINOPHILS % 0.1 % (0.0-5.0); HEMATOCRIT. 43.3 % (36.0-48.0); HEMOGLOBIN. 14.9 g/dL (12.0-16.0); LYMPHOCYTES % 9.6 % (20.0-50.0); MEAN CORPUSCULAR HEMOGLOBIN 29.5 pg (28.0-32.0); MEAN CORPUSCULAR VOLUME 86.1 fL (81.0-99.0); MEAN PLATELET VOLUME 8.9 fl (7.4-10.4); MONOCYTES % 2.2 % (2.0-8.0); NEUTROPHILS % 87.6 % (40.0-76.0); PLATELET 277 x1000/uL (130-400); RED BLOOD CELL COUNT 5.03 mill/uL (4.2-5.4)
[2021-12-09] MEDS ORDERED: MORPHINE SULFATE 4 MG/ML CPJ (NOT FOR IM USE) IV ONE ×2 (04:45→07:00)
[2021-12-09] MEDS ORDERED: MORPHINE SULFATE 2 MG/ML CPJ (NOT FOR IM USE) IV ONE (05:00)
[2021-12-09 05:35] LABS: CHLORIDE 100 mEq/L (98-107)
[2021-12-09 05:45] LABS: BETA HYDROXYBUTYRATE 1.1 mMol/L (0.0-0.3); ETHANOL BLOOD < 10 mg/dL
[2021-12-09] MEDS ORDERED: ASPIRIN 325MG EC TABLET PO ONE (07:00)
[2021-12-09 07:06] LABS: CLARITY URINE CLEAR (CLEAR); COLOR URINE YELLOW (YELLOW); KETONES URINE 3+ (NEGATIVE); LEUKOCYTE ESTERASE URINE NEGATIVE (NEGATIVE); NITRITE URINE NEGATIVE (NEGATIVE); OCCULT BLOOD URINE NEGATIVE (NEGATIVE); PH URINE 7.5 (4.5-8.0); PROTEIN URINE TRACE (NEGATIVE); SPECIFIC GRAVITY URINE 1.024 (1.005-1.030); UROBILINOGEN URINE 0.2 E.U./dL (0.2-1.0)
[2021-12-09] MEDS ORDERED: ONDANSETRON HCL 4MG/2ML INJ IV ONE (07:30)
[2021-12-09 08:27] LABS: *AMPHETAMINES SCREEN URINE NEGATIVE (NEGATIVE); *BARBITURATES SCREEN URINE NEGATIVE (NEGATIVE); *BENZODIAZEPINES SCREEN URINE NEGATIVE (NEGATIVE); *COCAINE SCREEN URINE NEGATIVE (NEGATIVE); CANNABINOID URINE SCREEN PRESUMTIVE POSITIVE (NEGATIVE); METHADONE URINE SCREEN NEGATIVE (NEGATIVE); OPIATES URINE SCREEN PRESUMTIVE POSITIVE (NEGATIVE); PHENCYCLIDINE URINE SCREEN NEGATIVE (NEGATIVE)
[2021-12-09] MEDS: MORPHINE SULFATE 2 MG/ML CPJ (NOT FOR IM USE) IV PRN ×2 (15:40→22:49)
[2021-12-09] MEDS ORDERED: MORPHINE SULFATE 2 MG/ML CPJ (NOT FOR IM USE) IV PRN (15:45)
[2021-12-09] MEDS ORDERED: NALOXONE HCL 0.4MG/ML VIAL IV PRN (15:45)
[2021-12-09 18:00] VITALS: BP 140/67
[2021-12-09] MEDS ORDERED: CLONIDINE 0.1MG TABLET PO PRN (18:00)
[2021-12-09] MEDS ORDERED: ONDANSETRON HCL 4MG/2ML INJ IV PRN (18:00)
[2021-12-09] MEDS ORDERED: HYDROCODONE/ACETAMINOPHEN 5/325MG TABLET PO PRN (18:00)
[2021-12-09] MEDS ORDERED: ACETAMINOPHEN 650MG/20.3ML UDC GT PRN (18:00)
[2021-12-09] MEDS ORDERED: DEXTROSE 50% WATER 50ML SYRINGE IV PRN ×2 (18:00)
[2021-12-09] MEDS ORDERED: MAGNESIUM/ALUMINUM HYDROXIDE/SIMETHICONE 30ML UDC PO PRN (18:00)
[2021-12-09] MEDS: METOCLOPRAMIDE HCL 10MG/2ML VIAL IV SCH ×2 (18:12→23:04)
[2021-12-09] MEDS: ENOXAPARIN 30MG/0.3ML SYR SUBCUT SCH (18:28)
[2021-12-09] MEDS: INSULIN LISPRO 100 UNITS/ML SUBCUT SCH ×2 (18:29→22:00)
[2021-12-09] MEDS ORDERED: CEFTRIAXONE 1 G PREMIX 50 ML IV SCH (19:00)
[2021-12-09 20:00] VITALS: BP 136/61
[2021-12-09] MEDS: BLOOD SUGAR DIAGNOSTIC STRIP TEST SCH (21:00)
[2021-12-09] MEDS ORDERED: CEFTRIAXONE 1,000 MG in DEXTROSE 5% WATER 50 ML IV SCH (22:30)
[2021-12-10] VITALS (7 sets, daily range): BP systolic 126–144; BP diastolic 51–79
[2021-12-10] MEDS: METOCLOPRAMIDE HCL 10MG/2ML VIAL IV SCH ×3 (06:08→18:00)
[2021-12-10] MEDS: MORPHINE SULFATE 2 MG/ML CPJ (NOT FOR IM USE) IV PRN (06:08)
[2021-12-10] MEDS: BLOOD SUGAR DIAGNOSTIC STRIP TEST SCH ×3 (06:09→17:40)
[2021-12-10] MEDS: ENOXAPARIN 30MG/0.3ML SYR SUBCUT SCH (06:09)
[2021-12-10 07:43] LABS: BASOPHILS % 0.5 % (0.0-2.0); EOSINOPHILS % 1.3 % (0.0-5.0); HEMOGLOBIN. 13.3 g/dL (12.0-16.0); LYMPHOCYTES % 33.9 % (20.0-50.0); MEAN CORPUSCULAR VOLUME 87.2 fL (81.0-99.0); MEAN PLATELET VOLUME 8.9 fl (7.4-10.4); MONOCYTES % 5.4 % (2.0-8.0); NEUTROPHILS % 58.9 % (40.0-76.0); PLATELET 215 x1000/uL (130-400); RED BLOOD CELL COUNT 4.58 mill/uL (4.2-5.4); RED CELL DISTRIBUTION WIDTH 13.9 % (11.6-14.6)
[2021-12-10 08:15] LABS: CHLORIDE 101 mEq/L (98-107); PHOSPHORUS 2.8 mg/dL (2.5-4.9)
[2021-12-10] MEDS: INSULIN LISPRO 100 UNITS/ML SUBCUT SCH ×3 (09:39→18:10)
[2021-12-10] MEDS: PANTOPRAZOLE SODIUM 40 MG/VIAL IV SCH ×2 (09:42→17:00)
[2021-12-10 14:43] LABS: HEPATITIS B SURFACE ANTIGEN NEGATIVE
== END 2021-12-10 16:30 | disposition home or self-care (01) | DRG 420 ==
LOC: ER 03:24 → EDBEDREQ 09:39 → ENRESERV 16:20 → 7WST 17:58 → UNDODISIN 12-10 09:00
PROVIDERS: ADMIT Internal Medicine; ATTEND Internal Medicine
DX: E11.69 Type 2 diabetes mellitus with other specified complication (principal); I11.9 Hypertensive heart disease without heart failure; K76.0 Fatty (change of) liver, not elsewhere classified; E11.65 Type 2 diabetes mellitus with hyperglycemia; E66.9 Obesity, unspecified; F12.90 Cannabis use, unspecified, uncomplicated; J45.909 Unspecified asthma, uncomplicated; K29.60 Other gastritis without bleeding; Z79.4 Long term (current) use of insulin; Z86.711 Personal history of pulmonary embolism; Z79.01 Long term (current) use of anticoagulants; Z79.899 Other long term (current) drug therapy; Z83.3 Family history of diabetes mellitus; Z68.33 Body mass index [BMI] 33.0-33.9, adult; Z71.51 Drug abuse counseling and surveillance of drug abuser
CPT/HCPCS: 36415; 71045; 74176; 80048; 80053; 80076; 80305; 80320; 81003; 82010; 82962; 83735; 84100; 84484; 85025; 86705; 86709; 86803; 87340; 93005; 93970; 99285; C9113; J0696; J1650; J1815; J2270; J2405; J2765; J7030; J7060; G0480

== ENCOUNTER 2021-12-16 18:05 | Emergency (ER) | payer OTHER ==
[~2021-12-16] VITALS: Ht 157.5 cm; Wt 91.0 kg
[~2021-12-16 18:05] MED LIST changes: -HAL5 MT; +HALO5TAB2 MT
[2021-12-16] MEDS ORDERED: MORPHINE SULFATE 4 MG/ML CPJ (NOT FOR IM USE) IV ONE (18:45)
[2021-12-16] MEDS ORDERED: SODIUM CHLORIDE 0.9% 1,000 ML IV ONE ×2 (18:45→22:30)
[2021-12-16] MEDS ORDERED: ONDANSETRON HCL 4MG/2ML INJ IV ONE ×2 (18:45→22:30)
[2021-12-16 19:24] LABS: BASOPHILS % 0.4 % (0.0-2.0); EOSINOPHILS % 0.3 % (0.0-5.0); HEMATOCRIT. 45.7 % (36.0-48.0); HEMOGLOBIN. 15.4 g/dL (12.0-16.0); LYMPHOCYTES % 16.4 % (20.0-50.0); MEAN CORPUSCULAR HEMOGLOBIN 29.2 pg (28.0-32.0); MEAN CORPUSCULAR VOLUME 86.8 fL (81.0-99.0); MEAN PLATELET VOLUME 8.6 fl (7.4-10.4); MONOCYTES % 3.9 % (2.0-8.0); PLATELET 360 x1000/uL (130-400); RED BLOOD CELL COUNT 5.26 mill/uL (4.2-5.4); RED CELL DISTRIBUTION WIDTH 14.5 % (11.6-14.6)
[2021-12-16 19:32] LABS: CLARITY URINE CLEAR (CLEAR); COLOR URINE YELLOW (YELLOW); KETONES URINE 2+ (NEGATIVE); LEUKOCYTE ESTERASE URINE TRACE (NEGATIVE); NITRITE URINE NEGATIVE (NEGATIVE); OCCULT BLOOD URINE NEGATIVE (NEGATIVE); PROTEIN URINE TRACE (NEGATIVE); SPECIFIC GRAVITY URINE 1.012 (1.005-1.030); UROBILINOGEN URINE 0.2 E.U./dL (0.2-1.0)
[2021-12-16 19:35] LABS: CHLORIDE 105 mEq/L (98-107)
[2021-12-16] MEDS ORDERED: HYDROMORPHONE HCL/PF 2MG/ML CPJ IV ONE (20:45)
[2021-12-16] MEDS ORDERED: METOCLOPRAMIDE HCL 10MG/2ML VIAL IV ONE (20:45)
[2021-12-16] MEDS ORDERED: HYDRALAZINE 20MG/ML VIAL IV ONE (22:30)
[2021-12-16] MEDS ORDERED: VANCOMYCIN 1G PREMIX 200 ML IV ONE (22:30)
[2021-12-16] MEDS ORDERED: ACETAMINOPHEN 325MG TABLET PO ONE (22:30)
[2021-12-16] MEDS ORDERED: PIPERACILLIN/TAZ 3.375G PREMIX 50 ML IV ONE (22:30)
[2021-12-16] MEDS ORDERED: INSULIN LISPRO 100 UNITS/ML SUBCUT NR (23:30)
[2021-12-17] MEDS ORDERED: HALOPERIDOL LACTATE 5MG/ML VIAL IM ONE (00:15)
[2021-12-17] MEDS ORDERED: KETOROLAC 15MG/ML VIAL IV ONE (01:00)
[2021-12-17] MEDS ORDERED: INSULIN LISPRO 100 UNITS/ML SUBCUT ONE (01:00)
[2021-12-17 01:13] VITALS: BP 151/86
== END 2021-12-17 02:06 | disposition short-term general hospital (02) ==
LOC: ER 18:05
DX: J18.9 Pneumonia, unspecified organism (principal); R11.2 Nausea with vomiting, unspecified; E11.65 Type 2 diabetes mellitus with hyperglycemia; K31.84 Gastroparesis; I10 Essential (primary) hypertension; R77.8 Other specified abnormalities of plasma proteins; J45.909 Unspecified asthma, uncomplicated; E11.9 Type 2 diabetes mellitus without complications; F12.10 Cannabis abuse, uncomplicated; Z79.899 Other long term (current) drug therapy; Z20.822 Contact with and (suspected) exposure to COVID-19
CPT/HCPCS: 36415; 74176; 80053; 81003; 82962; 83605; 83690; 83735; 84484; 85025; 87040; 87086; 87426; 93005; 96365; 96367; 96372; 96375; 96376; 99285; C9803; J0360; J1170; J1630; J1885; J2270; J2405; J2543; J2765; J3370; J7030

== ENCOUNTER 2021-12-25 12:52 | Inpatient (IN) | payer OTHER ==
[~2021-12-25] VITALS: Ht 162.6 cm; Wt 111.1 kg
[2021-12-25] MEDS ORDERED: PANTOPRAZOLE SODIUM 40 MG/VIAL IV STA (13:36)
[2021-12-25] MEDS ORDERED: MORPHINE SULFATE 4 MG/ML CPJ (NOT FOR IM USE) IV STA (13:36)
[2021-12-25] MEDS ORDERED: ONDANSETRON HCL 4MG/2ML INJ IV STA (13:36)
[2021-12-25] MEDS ORDERED: SODIUM CHLORIDE 0.9% 1,000 ML IV ONE (13:45)
[2021-12-25 14:21] LABS: BASOPHILS % 0.4 % (0.0-2.0); EOSINOPHILS % 0.9 % (0.0-5.0); HEMOGLOBIN. 15.3 g/dL (12.0-16.0); LYMPHOCYTES % 18.8 % (20.0-50.0); MEAN CORPUSCULAR HEMOGLOBIN 29.2 pg (28.0-32.0); MEAN CORPUSCULAR VOLUME 85.9 fL (81.0-99.0); MEAN PLATELET VOLUME 8.1 fl (7.4-10.4); MONOCYTES % 5.6 % (2.0-8.0); NEUTROPHILS % 74.3 % (40.0-76.0); PLATELET 409 x1000/uL (130-400); RED BLOOD CELL COUNT 5.24 mill/uL (4.2-5.4); RED CELL DISTRIBUTION WIDTH 14.1 % (11.6-14.6)
[2021-12-25 14:29] LABS: CHLORIDE 102 mEq/L (98-107)
[2021-12-25] MEDS ORDERED: POTASSIUM CHLORIDE 20MEQ TABLET SR PO NR (14:45)
[2021-12-25] MEDS ORDERED: MORPHINE SULFATE 4 MG/ML CPJ (NOT FOR IM USE) IV ONE (15:15)
[2021-12-25] MEDS ORDERED: SODIUM CHLORIDE 0.9% 1000ML BAG (SEPSIS BOLUS) IV ONE (16:00)
[2021-12-25] MEDS ORDERED: PIPERACILLIN/TAZ 3.375G PREMIX 50 ML IV ONE (16:00)
[2021-12-25] MEDS ORDERED: VANCOMYCIN 1G PREMIX 200 ML IV ONE (16:00)
[2021-12-25] MEDS ORDERED: CLONIDINE 0.2MG TABLET PO ONE (16:45)
[2021-12-25] MEDS ORDERED: ACETAMINOPHEN 325MG TABLET PO PRN ×2 (17:00)
[2021-12-25] MEDS ORDERED: NITROGLYCERIN 0.4MG TABLET SL SL PRN (17:00)
[2021-12-25] MEDS: BLOOD SUGAR DIAGNOSTIC STRIP TEST SCH ×2 (17:00→21:00)
[2021-12-25] MEDS ORDERED: GUAIFENESIN 200MG/10ML SUGAR FREE UDC PO PRN (17:00)
[2021-12-25] MEDS ORDERED: MAGNESIUM/ALUMINUM HYDROXIDE/SIMETHICONE 30ML UDC PO PRN (17:00)
[2021-12-25] MEDS ORDERED: DEXTROSE 50% WATER 50ML SYRINGE IV PRN (17:00)
[2021-12-25] MEDS ORDERED: IPRATROPIUM/ALBUTEROL 0.5-3(2.5)MG/3ML NEB NEB PRN (17:00)
[2021-12-25] MEDS ORDERED: CLONIDINE 0.1MG TABLET PO PRN (17:00)
[2021-12-25] MEDS ORDERED: DOCUSATE SODIUM 100MG CAPSULE PO PRN (17:00)
[2021-12-25] MEDS: NITROGLYCERIN OINT 1GM/INCH UDPKT TD SCH ×2 (17:23→22:29)
[2021-12-25] MEDS: KETOROLAC 15MG/ML VIAL IV PRN ×2 (17:23→23:28)
[2021-12-25] MEDS ORDERED: KCL 20MEQ/100ML PREMIX 100 ML IV SCH (17:30)
[2021-12-25] MEDS: AMLODIPINE 10MG TABLET PO SCH (17:30)
[2021-12-25 17:44] LABS: CLARITY URINE CLEAR (CLEAR); COLOR URINE YELLOW (YELLOW); KETONES URINE 3+ (NEGATIVE); LEUKOCYTE ESTERASE URINE NEGATIVE (NEGATIVE); NITRITE URINE NEGATIVE (NEGATIVE); OCCULT BLOOD URINE NEGATIVE (NEGATIVE); PH URINE 7.5 (4.5-8.0); PROTEIN URINE 2+ (NEGATIVE); SPECIFIC GRAVITY URINE 1.022 (1.005-1.030); UROBILINOGEN URINE 0.2 E.U./dL (0.2-1.0)
[2021-12-25] MEDS: HALOPERIDOL LACTATE 5MG/ML VIAL IM PRN (17:44)
[2021-12-25] MEDS ORDERED: AZITHROMYCIN 500MG/250ML 250 ML IV NR (17:45)
[2021-12-25 17:57] LABS: *AMPHETAMINES SCREEN URINE NEGATIVE (NEGATIVE); *BARBITURATES SCREEN URINE NEGATIVE (NEGATIVE); *BENZODIAZEPINES SCREEN URINE NEGATIVE (NEGATIVE); *COCAINE SCREEN URINE NEGATIVE (NEGATIVE); CANNABINOID URINE SCREEN PRESUMTIVE POSITIVE (NEGATIVE); METHADONE URINE SCREEN NEGATIVE (NEGATIVE); OPIATES URINE SCREEN PRESUMTIVE POSITIVE (NEGATIVE); PHENCYCLIDINE URINE SCREEN NEGATIVE (NEGATIVE)
[2021-12-25] MEDS ORDERED: CEFTRIAXONE 1 G PREMIX 50 ML IV NR (18:00)
[2021-12-25] MEDS: METOCLOPRAMIDE 10MG/10 ML UDC PO SCH (18:06)
[2021-12-25 18:28] LABS: FOLIC ACID (FOLATE) SERUM 18.5 ng/mL (>5.38)
[2021-12-25] MEDS: INSULIN LISPRO 100 UNITS/ML SUBCUT SCH ×2 (19:42→22:27)
[2021-12-25] MEDS: LISINOPRIL 20MG TABLET PO SCH (20:58)
[2021-12-25 21:15] VITALS: BP 148/61
[2021-12-25] MEDS: INSULIN GLARGINE 100 UNITS/ML SUBCUT SCH (22:27)
[2021-12-25] MEDS: ENOXAPARIN 30MG/0.3ML SYR SUBCUT SCH (22:29)
[2021-12-25] MEDS ORDERED: METO-396 PO (22:41)
[2021-12-25] MEDS: ZOLPIDEM TARTRATE 5MG TABLET PO PRN (23:43)
[2021-12-26] VITALS (7 sets, daily range): BP systolic 121–175; BP diastolic 61–88
[2021-12-26] MEDS ORDERED: PNEUMOCOCCAL 23-VAL P-SAC VAC 0.5 ML IM ONE (00:45)
[2021-12-26 03:44] LABS: CREATINE KINASE 92 IU/L (26-192); CREATINE KINASE MB FRACTION 2.2 ng/mL (0.5-3.6)
[2021-12-26] MEDS: NITROGLYCERIN OINT 1GM/INCH UDPKT TD SCH ×3 (05:53→21:07)
[2021-12-26] MEDS: INSULIN LISPRO 100 UNITS/ML SUBCUT SCH ×4 (05:57→21:09)
[2021-12-26] MEDS: BLOOD SUGAR DIAGNOSTIC STRIP TEST SCH ×4 (05:57→21:07)
[2021-12-26] MEDS: METOCLOPRAMIDE 10MG/10 ML UDC PO SCH ×3 (05:58→16:24)
[2021-12-26 07:12] LABS: BASOPHILS % 0.3 % (0.0-2.0); EOSINOPHILS % 0.4 % (0.0-5.0); HEMOGLOBIN. 12.7 g/dL (12.0-16.0); LYMPHOCYTES % 26.3 % (20.0-50.0); MEAN CORPUSCULAR HEMOGLOBIN 28.7 pg (28.0-32.0); MEAN CORPUSCULAR VOLUME 86.2 fL (81.0-99.0); MEAN PLATELET VOLUME 7.9 fl (7.4-10.4); MONOCYTES % 7.2 % (2.0-8.0); NEUTROPHILS % 65.8 % (40.0-76.0); PLATELET 337 x1000/uL (130-400); RED BLOOD CELL COUNT 4.41 mill/uL (4.2-5.4); RED CELL DISTRIBUTION WIDTH 14.3 % (11.6-14.6)
[2021-12-26 07:31] LABS: CHLORIDE 106 mEq/L (98-107)
[2021-12-26 07:43] LABS: CREATINE KINASE 89 IU/L (26-192); CREATINE KINASE MB FRACTION 2.1 ng/mL (0.5-3.6); PHOSPHORUS 3.2 mg/dL (2.5-4.9)
[2021-12-26] MEDS: PANTOPRAZOLE SODIUM 40 MG/VIAL IV SCH (08:32)
[2021-12-26] MEDS: AMLODIPINE 10MG TABLET PO SCH (08:33)
[2021-12-26] MEDS: LISINOPRIL 20MG TABLET PO SCH ×2 (08:33→21:07)
[2021-12-26] MEDS: ENOXAPARIN 30MG/0.3ML SYR SUBCUT SCH ×2 (08:33→21:06)
[2021-12-26] MEDS: KETOROLAC 15MG/ML VIAL IV PRN ×2 (08:42→16:19)
[2021-12-26] MEDS: INSULIN GLARGINE 100 UNITS/ML SUBCUT SCH ×2 (09:07→21:08)
[2021-12-26] MEDS: CEFTRIAXONE 1,000 MG in DEXTROSE 5% WATER 50 ML IV SCH (12:42)
[2021-12-26] MEDS: AZITHROMYCIN 500 MG in DEXT 5% WATER 250 ML IV SCH ×2 (13:00→14:49)
[2021-12-26] MEDS: HALOPERIDOL LACTATE 5MG/ML VIAL IM PRN (17:18)
[2021-12-26] MEDS: ONDANSETRON HCL 4MG/2ML INJ IV PRN (18:42)
[2021-12-26] MEDS: ZOLPIDEM TARTRATE 5MG TABLET PO PRN (21:07)
[2021-12-27] VITALS: BP 135/75
[2021-12-27] MEDS: ONDANSETRON HCL 4MG/2ML INJ IV PRN ×2 (01:29→10:27)
[2021-12-27] MEDS: KETOROLAC 15MG/ML VIAL IV PRN ×2 (01:29→09:08)
[2021-12-27 04:00] VITALS: BP 145/70
[2021-12-27] MEDS: METOCLOPRAMIDE 10MG/10 ML UDC PO SCH ×3 (06:06→16:33)
[2021-12-27] MEDS: NITROGLYCERIN OINT 1GM/INCH UDPKT TD SCH ×3 (06:07→22:00)
[2021-12-27] MEDS: BLOOD SUGAR DIAGNOSTIC STRIP TEST SCH ×4 (07:10→21:33)
[2021-12-27] MEDS: INSULIN LISPRO 100 UNITS/ML SUBCUT SCH ×4 (07:40→21:00)
[2021-12-27 08:00] VITALS: BP 126/80
[2021-12-27] MEDS: PANTOPRAZOLE SODIUM 40 MG/VIAL IV SCH (09:07)
[2021-12-27] MEDS: ENOXAPARIN 30MG/0.3ML SYR SUBCUT SCH ×2 (09:09→21:32)
[2021-12-27] MEDS: AMLODIPINE 10MG TABLET PO SCH (09:09)
[2021-12-27] MEDS: LISINOPRIL 20MG TABLET PO SCH ×2 (09:09→21:00)
[2021-12-27] MEDS: INSULIN GLARGINE 100 UNITS/ML SUBCUT SCH ×2 (10:26→23:13)
[2021-12-27 12:00] VITALS: BP 189/99
[2021-12-27] MEDS: HALOPERIDOL LACTATE 5MG/ML VIAL IM PRN (12:19)
[2021-12-27] MEDS: CEFTRIAXONE 1,000 MG in DEXTROSE 5% WATER 50 ML IV SCH (12:19)
[2021-12-27] MEDS ORDERED: POTASSIUM CHLORIDE 20MEQ TABLET SR PO NR (14:30)
[2021-12-27 16:00] VITALS: BP 129/68
[2021-12-27] MEDS: AZITHROMYCIN 500 MG in DEXT 5% WATER 250 ML IV SCH (16:33)
[2021-12-27 20:00] VITALS: BP 107/68
[2021-12-27] MEDS: ZOLPIDEM TARTRATE 5MG TABLET PO PRN (21:33)
[2021-12-28] VITALS: BP 123/59
[2021-12-28 04:00] VITALS: BP 136/91
[2021-12-28] MEDS: KETOROLAC 15MG/ML VIAL IV PRN (04:21)
[2021-12-28] MEDS: NITROGLYCERIN OINT 1GM/INCH UDPKT TD SCH (06:53)
[2021-12-28] MEDS: METOCLOPRAMIDE 10MG/10 ML UDC PO SCH (06:55)
[2021-12-28] MEDS: BLOOD SUGAR DIAGNOSTIC STRIP TEST SCH (07:05)
[2021-12-28] MEDS: INSULIN LISPRO 100 UNITS/ML SUBCUT SCH (07:05)
[2021-12-28 08:00] VITALS: BP 141/79
[2021-12-28] MEDS: ENOXAPARIN 30MG/0.3ML SYR SUBCUT SCH (09:00)
[2021-12-28] MEDS: AMLODIPINE 10MG TABLET PO SCH (09:55)
[2021-12-28] MEDS: PANTOPRAZOLE SODIUM 40 MG/VIAL IV SCH (09:55)
[2021-12-28] MEDS: LISINOPRIL 20MG TABLET PO SCH (09:55)
[2021-12-28] MEDS: INSULIN GLARGINE 100 UNITS/ML SUBCUT SCH (09:56)
[2021-12-28 10:01] VITALS: BP 141/79
== END 2021-12-28 10:40 | disposition home or self-care (01) | DRG 720 ==
LOC: ER 12:52 → 8WST 16:28 → EDBEDREQTM 16:32 → EDBEDREQ 16:32 → EDBEDREQSVC 16:32 → ENRESERV 19:17
PROVIDERS: ADMIT Internal Medicine; ATTEND Internal Medicine
DX: A41.9 Sepsis, unspecified organism (principal); K31.84 Gastroparesis; E11.43 Type 2 diabetes mellitus with diabetic autonomic (poly)neuropathy; E66.01 Morbid (severe) obesity due to excess calories; I10 Essential (primary) hypertension; Z68.41 Body mass index [BMI] 40.0-44.9, adult; M19.90 Unspecified osteoarthritis, unspecified site; F41.9 Anxiety disorder, unspecified; F32.A Depression, unspecified; F12.90 Cannabis use, unspecified, uncomplicated; Z79.899 Other long term (current) drug therapy; E87.6 Hypokalemia
CPT/HCPCS: 36415; 71045; 80053; 80305; 81003; 82550; 82553; 82607; 82746; 82962; 83036; 83540; 83550; 83605; 83735; 84100; 84145; 84443; 84484; 85025; 90732; 93005; 93970; 97162; 99291; C9113; J0456; J0696; J1630; J1650; J1815; J1885; J2270; J2405; J2543; J3370; J3480; J7030; J7060; J8597

== ENCOUNTER 2022-01-02 15:22 | Inpatient (IN) | payer OTHER ==
[~2022-01-02] VITALS: Ht 162.6 cm; Wt 106.6 kg
[~2022-01-02 15:22] MED LIST changes: +METO-396 PO
[2022-01-02] MEDS ORDERED: ONDANSETRON HCL 4MG/2ML INJ IV STA (15:53)
[2022-01-02] MEDS ORDERED: MORPHINE SULFATE 4 MG/ML CPJ (NOT FOR IM USE) IV ONE (16:00)
[2022-01-02 16:15] LABS: BASOPHILS % 0.5 % (0.0-2.0); EOSINOPHILS % 0.6 % (0.0-5.0); HEMATOCRIT. 44.2 % (36.0-48.0); HEMOGLOBIN. 15.1 g/dL (12.0-16.0); LYMPHOCYTES % 17.3 % (20.0-50.0); MEAN CORPUSCULAR HEMOGLOBIN 29.2 pg (28.0-32.0); MEAN CORPUSCULAR VOLUME 85.5 fL (81.0-99.0); MONOCYTES % 5.2 % (2.0-8.0); NEUTROPHILS % 76.4 % (40.0-76.0); PLATELET 388 x1000/uL (130-400); RED BLOOD CELL COUNT 5.17 mill/uL (4.2-5.4); RED CELL DISTRIBUTION WIDTH 13.9 % (11.6-14.6)
[2022-01-02 16:22] LABS: CHLORIDE 102 mEq/L (98-107)
[2022-01-02] MEDS ORDERED: HALOPERIDOL LACTATE 5MG/ML VIAL IM NR (17:30)
[2022-01-02] MEDS ORDERED: SODIUM CHLORIDE 0.9% 1,000 ML IV ONE (21:30)
[2022-01-02] MEDS ORDERED: ASPIRIN 81MG TABLET PO ONE (21:30)
[2022-01-02] MEDS ORDERED: MORPHINE SULFATE 4 MG/ML CPJ (NOT FOR IM USE) IV NR (22:00)
[2022-01-02] MEDS ORDERED: ONDANSETRON HCL 4MG/2ML INJ IV NR (22:00)
[2022-01-02] MEDS ORDERED: ASPIRIN 81MG TABLET PO NR (22:00)
[2022-01-03] MEDS ORDERED: MORPHINE SULFATE 4 MG/ML CPJ (NOT FOR IM USE) IV NR (00:15)
[2022-01-03 06:46] VITALS: BP 158/84
[2022-01-03 08:00] VITALS: BP 132/72
[2022-01-03] MEDS ORDERED: DEXTROSE 50% WATER 50ML SYRINGE IV PRN (08:45)
[2022-01-03] MEDS ORDERED: CEFTRIAXONE 1 G PREMIX 50 ML IV SCH (08:45)
[2022-01-03] MEDS ORDERED: ACETAMINOPHEN 325MG TABLET PO PRN (08:45)
[2022-01-03] MEDS ORDERED: ONDANSETRON HCL 4MG/2ML INJ IV PRN (08:45)
[2022-01-03] MEDS ORDERED: NALOXONE HCL 0.4MG/ML VIAL IV PRN (09:00)
[2022-01-03] MEDS: CEFTRIAXONE 1,000 MG in DEXTROSE 5% WATER 50 ML IV SCH (11:17)
[2022-01-03] MEDS: HYDROCODONE/ACETAMINOPHEN 5/325MG TABLET PO PRN ×2 (11:19→20:57)
[2022-01-03] MEDS: BLOOD SUGAR DIAGNOSTIC STRIP TEST SCH ×3 (11:53→21:03)
[2022-01-03 12:00] VITALS: BP 174/95
[2022-01-03] MEDS: NIFEDIPINE XL 30MG TAB PO SCH (12:49)
[2022-01-03] MEDS: METOPROLOL SUCCINATE 50MG ER TABLET PO SCH (12:49)
[2022-01-03] MEDS: INSULIN LISPRO 100 UNITS/ML SUBCUT SCH ×3 (12:50→21:03)
[2022-01-03 16:00] VITALS: BP 145/80
[2022-01-03 17:50] LABS: CLARITY URINE CLEAR (CLEAR); COLOR URINE YELLOW (YELLOW); KETONES URINE TRACE (NEGATIVE); LEUKOCYTE ESTERASE URINE NEGATIVE (NEGATIVE); NITRITE URINE NEGATIVE (NEGATIVE); OCCULT BLOOD URINE NEGATIVE (NEGATIVE); PH URINE 5.5 (4.5-8.0); PROTEIN URINE 2+ (NEGATIVE); SPECIFIC GRAVITY URINE 1.026 (1.005-1.030)
[2022-01-03 20:00] VITALS: BP 147/75
[2022-01-03] MEDS ORDERED: ATORVASTATIN CALCIUM 40MG TABLET PO SCH (21:00)
[2022-01-04] VITALS: BP 122/55
[2022-01-04 04:00] VITALS: BP 165/80
[2022-01-04] MEDS: HYDROCODONE/ACETAMINOPHEN 5/325MG TABLET PO PRN ×2 (05:05→10:20)
[2022-01-04] MEDS: BLOOD SUGAR DIAGNOSTIC STRIP TEST SCH ×2 (05:38→12:37)
[2022-01-04] MEDS: INSULIN LISPRO 100 UNITS/ML SUBCUT SCH ×2 (05:38→12:42)
[2022-01-04 06:47] LABS: BASOPHILS % 0.6 % (0.0-2.0); EOSINOPHILS % 2.3 % (0.0-5.0); HEMATOCRIT. 38.3 % (36.0-48.0); LYMPHOCYTES % 27.3 % (20.0-50.0); MEAN CORPUSCULAR HEMOGLOBIN 29.3 pg (28.0-32.0); MEAN CORPUSCULAR VOLUME 86.4 fL (81.0-99.0); MEAN PLATELET VOLUME 7.9 fl (7.4-10.4); MONOCYTES % 4.9 % (2.0-8.0); NEUTROPHILS % 64.9 % (40.0-76.0); PLATELET 329 x1000/uL (130-400); RED BLOOD CELL COUNT 4.43 mill/uL (4.2-5.4); RED CELL DISTRIBUTION WIDTH 13.7 % (11.6-14.6)
[2022-01-04 07:04] LABS: CHLORIDE 102 mEq/L (98-107)
[2022-01-04 08:00] VITALS: BP 130/83
[2022-01-04] MEDS: CEFTRIAXONE 1,000 MG in DEXTROSE 5% WATER 50 ML IV SCH (08:49)
[2022-01-04] MEDS: METOPROLOL SUCCINATE 50MG ER TABLET PO SCH (08:50)
[2022-01-04] MEDS: NIFEDIPINE XL 30MG TAB PO SCH (08:50)
[2022-01-04 12:00] VITALS: BP 140/86
[2022-01-04] MEDS ORDERED: INSU100I28 SQ (13:01)
[2022-01-04 14:14] VITALS: BP 140/86
[2022-01-04 14:18] VITALS: BP 140/86
== END 2022-01-04 14:45 | disposition home or self-care (01) | DRG 720 ==
LOC: ER 15:22 → MICUSO 23:27 → 8WST 01-03 07:32
PROVIDERS: ADMIT Hospitalist; ATTEND Internal Medicine
DX: A41.9 Sepsis, unspecified organism (principal); I21.A1 Myocardial infarction type 2; E11.43 Type 2 diabetes mellitus with diabetic autonomic (poly)neuropathy; K31.84 Gastroparesis; Z20.822 Contact with and (suspected) exposure to COVID-19; E11.65 Type 2 diabetes mellitus with hyperglycemia; M19.90 Unspecified osteoarthritis, unspecified site; E66.9 Obesity, unspecified; E78.5 Hyperlipidemia, unspecified; F12.90 Cannabis use, unspecified, uncomplicated; F32.A Depression, unspecified; I10 Essential (primary) hypertension; Z98.61 Coronary angioplasty status; Z68.41 Body mass index [BMI] 40.0-44.9, adult; Z87.891 Personal history of nicotine dependence; N39.0 Urinary tract infection, site not specified; Z71.3 Dietary counseling and surveillance
CPT/HCPCS: 36415; 74018; 80048; 80053; 81003; 82962; 84145; 84484; 85025; 87426; 93005; 93306; 99285; C9803; J0696; J1630; J1815; J2270; J2405; J7030; J7060

== ENCOUNTER 2022-01-09 14:06 | Emergency (ER) | payer OTHER ==
[~2022-01-09] VITALS: Ht 167.6 cm; Wt 114.0 kg
[2022-01-09] MEDS ORDERED: MORPHINE SULFATE 4 MG/ML CPJ (NOT FOR IM USE) IV STA (14:26)
[2022-01-09] MEDS ORDERED: METOCLOPRAMIDE HCL 10MG/2ML VIAL IV ONE (14:30)
[2022-01-09 15:14] LABS: BASOPHILS % 0.7 % (0.0-2.0); EOSINOPHILS % 1.9 % (0.0-5.0); HEMATOCRIT. 41.1 % (36.0-48.0); HEMOGLOBIN. 13.9 g/dL (12.0-16.0); LYMPHOCYTES % 23.4 % (20.0-50.0); MEAN CORPUSCULAR HEMOGLOBIN 29.2 pg (28.0-32.0); MEAN CORPUSCULAR VOLUME 86.5 fL (81.0-99.0); MEAN PLATELET VOLUME 7.8 fl (7.4-10.4); MONOCYTES % 6.7 % (2.0-8.0); NEUTROPHILS % 67.3 % (40.0-76.0); PLATELET 318 x1000/uL (130-400); RED BLOOD CELL COUNT 4.75 mill/uL (4.2-5.4); RED CELL DISTRIBUTION WIDTH 13.7 % (11.6-14.6)
[2022-01-09 15:41] LABS: CHLORIDE 102 mEq/L (98-107)
[2022-01-09 18:35] VITALS: BP 162/79
[2022-01-09] MEDS ORDERED: PROT40 MT (18:54)
[2022-01-09] MEDS ORDERED: COM10 MT (18:54)
[2022-01-09] MEDS ORDERED: MAG355OR21 MT (18:54)
== END 2022-01-09 19:31 | disposition home or self-care (01) ==
LOC: ER 14:13
DX: E11.43 Type 2 diabetes mellitus with diabetic autonomic (poly)neuropathy (principal); K31.84 Gastroparesis; I10 Essential (primary) hypertension; E78.00 Pure hypercholesterolemia, unspecified; F32.A Depression, unspecified; M19.90 Unspecified osteoarthritis, unspecified site; F99 Mental disorder, not otherwise specified; F12.10 Cannabis abuse, uncomplicated; Z79.4 Long term (current) use of insulin
CPT/HCPCS: 36415; 80053; 83690; 85025; 96374; 96375; 99284; J2270; J2765

== ENCOUNTER 2022-02-22 12:12 | Emergency (ER) | payer OTHER ==
[~2022-02-22] VITALS: Ht 160 cm; Wt 135.0 kg
[~2022-02-22 12:12] MED LIST changes: +COM10 MT; +MAG355OR21 MT; +PROT40 MT
[2022-02-22] MEDS ORDERED: MORPHINE SULFATE 4 MG/ML CPJ (NOT FOR IM USE) IV STA (12:16)
[2022-02-22] MEDS ORDERED: ONDANSETRON HCL 4MG/2ML INJ IV STA (12:16)
[2022-02-22 12:47] LABS: BASOPHILS % 0.4 % (0.0-2.0); EOSINOPHILS % 0.8 % (0.0-5.0); HEMATOCRIT. 45.5 % (36.0-48.0); HEMOGLOBIN. 15.3 g/dL (12.0-16.0); MEAN CORPUSCULAR HEMOGLOBIN 29.4 pg (28.0-32.0); MEAN CORPUSCULAR VOLUME 87.2 fL (81.0-99.0); MEAN PLATELET VOLUME 8.2 fl (7.4-10.4); MONOCYTES % 4.5 % (2.0-8.0); NEUTROPHILS % 69.3 % (40.0-76.0); PLATELET 302 x1000/uL (130-400); RED BLOOD CELL COUNT 5.22 mill/uL (4.2-5.4)
[2022-02-22 12:54] LABS: CHLORIDE 100 mEq/L (98-107)
[2022-02-22 12:57] LABS: PROTHROMBIN TIME 10.3 sec (9.6-11.0)
[2022-02-22 13:04] LABS: ETHANOL BLOOD < 10 mg/dL
[2022-02-22] MEDS ORDERED: ONDANSETRON HCL 4MG/2ML INJ IV NR (14:13)
[2022-02-22] MEDS ORDERED: MORPHINE SULFATE 4 MG/ML CPJ (NOT FOR IM USE) IV ONE ×2 (15:00→18:45)
[2022-02-22 15:38] LABS: CLARITY URINE CLEAR (CLEAR); COLOR URINE YELLOW (YELLOW); KETONES URINE 2+ (NEGATIVE); LEUKOCYTE ESTERASE URINE NEGATIVE (NEGATIVE); NITRITE URINE NEGATIVE (NEGATIVE); OCCULT BLOOD URINE NEGATIVE (NEGATIVE); PROTEIN URINE 2+ (NEGATIVE); SPECIFIC GRAVITY URINE 1.025 (1.005-1.030); UROBILINOGEN URINE 0.2 E.U./dL (0.2-1.0)
[2022-02-22 15:51] LABS: *AMPHETAMINES SCREEN URINE NEGATIVE (NEGATIVE); *BARBITURATES SCREEN URINE NEGATIVE (NEGATIVE); *BENZODIAZEPINES SCREEN URINE NEGATIVE (NEGATIVE); *COCAINE SCREEN URINE NEGATIVE (NEGATIVE); CANNABINOID URINE SCREEN PRESUMTIVE POSITIVE (NEGATIVE); METHADONE URINE SCREEN NEGATIVE (NEGATIVE); OPIATES URINE SCREEN PRESUMTIVE POSITIVE (NEGATIVE); PHENCYCLIDINE URINE SCREEN NEGATIVE (NEGATIVE)
[2022-02-22] MEDS ORDERED: DIPHENHYDRAMINE 50MG/ML VIAL IV ONE (18:45)
[2022-02-22] MEDS ORDERED: METOCLOPRAMIDE HCL 10MG/2ML VIAL IV ONE (18:45)
[2022-02-22 19:30] VITALS: BP 170/82
[2022-02-22] MEDS ORDERED: INSULIN REGULAR (HUMULIN R) UD 100 UNITS/ML SYR SUBCUT ONE (20:00)
[2022-02-22] MEDS ORDERED: INSULIN REGULAR (HUMULIN R) 300UNITS/3ML VIAL SUBCUT NR (20:30)
[2022-02-22] MEDS ORDERED: IOHEXOL-350 100 ML BOTTLE ONE (20:47)
== END 2022-02-22 20:28 | disposition short-term general hospital (02) ==
LOC: ER 12:12 → EDBEDREQ 14:03 → EDBEDREQTM 14:05 → ER 20:28 → CANBEDREQ 23:35
DX: M79.602 Pain in left arm (principal); R53.1 Weakness; E11.65 Type 2 diabetes mellitus with hyperglycemia; I10 Essential (primary) hypertension; R07.89 Other chest pain; R20.0 Anesthesia of skin; M79.18 Myalgia, other site; F12.90 Cannabis use, unspecified, uncomplicated; Z79.4 Long term (current) use of insulin; Z86.711 Personal history of pulmonary embolism; Z79.01 Long term (current) use of anticoagulants; Z79.899 Other long term (current) drug therapy
CPT/HCPCS: 36415; 70450; 71045; 80053; 80305; 80320; 81003; 82010; 84484; 85025; 85610; 93005; 96374; 96375; 96376; 99291; J1200; J2270; J2405; J2765; Q9967; Z7610; J1815; G0480

== ENCOUNTER 2022-09-04 07:07 | Inpatient (IN) | payer OTHER ==
[~2022-09-04] VITALS: Ht 162.6 cm; Wt 102.1 kg
[2022-09-04] MEDS ORDERED: KETOROLAC 60MG/2ML VIAL IM STA (07:17)
[2022-09-04] MEDS ORDERED: METOCLOPRAMIDE HCL 10MG/2ML VIAL IV ONE (07:30)
[2022-09-04 08:43] LABS: BASOPHILS % 0.4 % (0.0-2.0); EOSINOPHILS % 0.5 % (0.0-5.0); HEMATOCRIT. 49.2 % (36.0-48.0); HEMOGLOBIN. 16.3 g/dL (12.0-16.0); LYMPHOCYTES % 15.6 % (20.0-50.0); MEAN CORPUSCULAR HEMOGLOBIN 29.6 pg (28.0-32.0); MEAN CORPUSCULAR VOLUME 89.2 fL (81.0-99.0); MEAN PLATELET VOLUME 8.5 fl (7.4-10.4); MONOCYTES % 5.2 % (2.0-8.0); NEUTROPHILS % 78.3 % (40.0-76.0); PLATELET 343 x1000/uL (130-400); RED BLOOD CELL COUNT 5.52 mill/uL (4.2-5.4); RED CELL DISTRIBUTION WIDTH 14.1 % (11.6-14.6)
[2022-09-04 08:51] LABS: CHLORIDE 98 mEq/L (98-107)
[2022-09-04 08:52] LABS: PROTHROMBIN TIME 10.9 sec (9.6-11.0)
[2022-09-04 09:15] LABS: CLARITY URINE CLOUDY (CLEAR); COLOR URINE YELLOW (YELLOW); KETONES URINE 3+ (NEGATIVE); LEUKOCYTE ESTERASE URINE NEGATIVE (NEGATIVE); NITRITE URINE NEGATIVE (NEGATIVE); OCCULT BLOOD URINE NEGATIVE (NEGATIVE); PH URINE 5.5 (4.5-8.0); PROTEIN URINE 3+ (NEGATIVE); SPECIFIC GRAVITY URINE 1.019 (1.005-1.030); UROBILINOGEN URINE 0.2 E.U./dL (0.2-1.0)
[2022-09-04] MEDS ORDERED: MORPHINE SULFATE 4 MG/ML CPJ (NOT FOR IM USE) IV ONE (10:15)
[2022-09-04] MEDS ORDERED: ENOXAPARIN 80MG/0.8ML SYR SUBCUT ONE (12:15)
[2022-09-04 15:58] VITALS: BP 122/64
[2022-09-04 16:00] VITALS: BP 122/65
[2022-09-04 16:09] VITALS: BP 122/64
[2022-09-04] MEDS ORDERED: DEXTROSE 50% WATER 50ML SYRINGE IV PRN ×2 (17:00)
[2022-09-04] MEDS ORDERED: LORAZEPAM 2MG/ML CPJ IV PRN (17:00)
[2022-09-04] MEDS ORDERED: NALOXONE HCL 0.4MG/ML VIAL IV PRN (17:30)
[2022-09-04] MEDS: APIXABAN 5 MG TABLET PO SCH (18:24)
[2022-09-04] MEDS: METOCLOPRAMIDE HCL 10MG TABLET PO SCH ×2 (18:24→23:46)
[2022-09-04] MEDS: PANTOPRAZOLE 40MG DR TABLET PO SCH (18:24)
[2022-09-04] MEDS: HYDROCODONE/ACETAMINOPHEN 10/325MG TABLET PO PRN (18:25)
[2022-09-04] MEDS: INSULIN LISPRO 100 UNITS/ML SUBCUT SCH ×3 (18:26→20:58)
[2022-09-04 20:00] VITALS: BP 107/69
[2022-09-04] MEDS: CEFTRIAXONE 1,000 MG in DEXTROSE 5% WATER 50 ML IV SCH (20:07)
[2022-09-04] MEDS: METOPROLOL TARTRATE 25MG TABLET PO SCH (20:57)
[2022-09-04] MEDS: ATORVASTATIN CALCIUM 40MG TABLET PO SCH (20:57)
[2022-09-04] MEDS: BLOOD SUGAR DIAGNOSTIC STRIP TEST SCH (20:59)
[2022-09-04] MEDS: GABAPENTIN 100MG CAPSULE PO SCH (21:44)
[2022-09-04] MEDS: INSULIN GLARGINE 100 UNITS/ML SUBCUT SCH (21:45)
[2022-09-05] VITALS: BP 109/44
[2022-09-05 04:00] VITALS: BP 132/67
[2022-09-05] MEDS: HYDROCODONE/ACETAMINOPHEN 10/325MG TABLET PO PRN ×3 (04:29→20:21)
[2022-09-05] MEDS: METOCLOPRAMIDE HCL 10MG TABLET PO SCH ×3 (05:28→18:00)
[2022-09-05] MEDS: GABAPENTIN 100MG CAPSULE PO SCH ×3 (05:28→21:30)
[2022-09-05] MEDS: INSULIN LISPRO 100 UNITS/ML SUBCUT SCH ×7 (06:18→21:32)
[2022-09-05] MEDS: PANTOPRAZOLE 40MG DR TABLET PO SCH (06:18)
[2022-09-05] MEDS: BLOOD SUGAR DIAGNOSTIC STRIP TEST SCH ×4 (06:18→21:32)
[2022-09-05 06:53] LABS: BASOPHILS % 0.4 % (0.0-2.0); EOSINOPHILS % 2.4 % (0.0-5.0); HEMATOCRIT. 44.4 % (36.0-48.0); HEMOGLOBIN. 14.8 g/dL (12.0-16.0); LYMPHOCYTES % 35.7 % (20.0-50.0); MEAN CORPUSCULAR HEMOGLOBIN 29.5 pg (28.0-32.0); MEAN CORPUSCULAR VOLUME 88.5 fL (81.0-99.0); MEAN PLATELET VOLUME 8.4 fl (7.4-10.4); NEUTROPHILS % 54.5 % (40.0-76.0); PLATELET 270 x1000/uL (130-400); RED BLOOD CELL COUNT 5.01 mill/uL (4.2-5.4); RED CELL DISTRIBUTION WIDTH 14.1 % (11.6-14.6)
[2022-09-05 08:00] VITALS: BP 124/66
[2022-09-05] MEDS: METOPROLOL TARTRATE 25MG TABLET PO SCH ×2 (08:40→21:31)
[2022-09-05] MEDS: SERTRALINE HCL 50MG TABLET PO SCH (08:41)
[2022-09-05] MEDS: APIXABAN 5 MG TABLET PO SCH ×2 (08:41→17:07)
[2022-09-05] MEDS: INSULIN GLARGINE 100 UNITS/ML SUBCUT SCH ×2 (10:37→21:31)
[2022-09-05 12:00] VITALS: BP 122/91
[2022-09-05] MEDS ORDERED: LEVO-65 MT (12:36)
[2022-09-05] MEDS ORDERED: INSU100I28 SQ (12:36)
[2022-09-05 16:00] VITALS: BP 105/55
[2022-09-05 20:00] VITALS: BP 118/53
[2022-09-05] MEDS: CEFTRIAXONE 1,000 MG in DEXTROSE 5% WATER 50 ML IV SCH (21:31)
[2022-09-05] MEDS: ATORVASTATIN CALCIUM 40MG TABLET PO SCH (22:12)
[2022-09-06] VITALS: BP 111/53
[2022-09-06] MEDS: METOCLOPRAMIDE HCL 10MG TABLET PO SCH ×2 (00:14→06:11)
[2022-09-06 04:00] VITALS: BP 111/48
[2022-09-06] MEDS: GABAPENTIN 100MG CAPSULE PO SCH (06:11)
[2022-09-06] MEDS: INSULIN LISPRO 100 UNITS/ML SUBCUT SCH ×3 (06:40→11:40)
[2022-09-06] MEDS: BLOOD SUGAR DIAGNOSTIC STRIP TEST SCH ×2 (06:57→11:40)
[2022-09-06 08:00] VITALS: BP 115/54
[2022-09-06] MEDS ORDERED: FAMOTIDINE 20MG TABLET PO SCH (09:00)
[2022-09-06] MEDS: SERTRALINE HCL 50MG TABLET PO SCH (10:05)
[2022-09-06] MEDS: APIXABAN 5 MG TABLET PO SCH (10:05)
[2022-09-06] MEDS: METOPROLOL TARTRATE 25MG TABLET PO SCH (10:06)
[2022-09-06] MEDS: INSULIN GLARGINE 100 UNITS/ML SUBCUT SCH (10:07)
[2022-09-06 11:14] VITALS: BP 112/52
[2022-09-06 12:00] VITALS: BP 112/65
== END 2022-09-06 12:00 | disposition home or self-care (01) | DRG 720 ==
LOC: ER 07:07 → 7EST 12:39 → MICUSO 12:39 → UNDOADMIN 12:39
PROVIDERS: ADMIT Internal Medicine; ATTEND Internal Medicine
DX: A41.9 Sepsis, unspecified organism (principal); I21.4 Non-ST elevation (NSTEMI) myocardial infarction; K31.84 Gastroparesis; E11.43 Type 2 diabetes mellitus with diabetic autonomic (poly)neuropathy; E87.1 Hypo-osmolality and hyponatremia; E11.65 Type 2 diabetes mellitus with hyperglycemia; N39.0 Urinary tract infection, site not specified; E66.9 Obesity, unspecified; I10 Essential (primary) hypertension; E78.00 Pure hypercholesterolemia, unspecified; Z88.8 Allergy status to other drugs, medicaments and biological substances; Z79.899 Other long term (current) drug therapy; Z86.73 Personal history of transient ischemic attack (TIA), and cerebral infarction without residual deficits; Z68.38 Body mass index [BMI] 38.0-38.9, adult
CPT/HCPCS: 36415; 74176; 80053; 80061; 81003; 82962; 83036; 84484; 85025; 99285; J0696; J1650; J1815; J1885; J2270; J2765; J7060; J8597

== ENCOUNTER 2022-10-20 06:58 | Inpatient (IN) | payer OTHER ==
[~2022-10-20] VITALS: Ht 162.6 cm; Wt 106.1 kg
[~2022-10-20 06:58] MED LIST changes: -COM10 MT; -HALO5TAB2 MT; +LEVO-65 MT; -NIFE-33 PO; -PROT40 MT; -SERT-422 PO
[2022-10-20] MEDS ORDERED: MORPHINE SULFATE 4 MG/ML CPJ (NOT FOR IM USE) IV ONE (07:30)
[2022-10-20 08:07] LABS: CHLORIDE 99 mEq/L (98-107)
[2022-10-20 08:12] LABS: BASOPHILS % 0.4 % (0.0-2.0); EOSINOPHILS % 0.3 % (0.0-5.0); HEMATOCRIT. 46.4 % (36.0-48.0); HEMOGLOBIN. 15.5 g/dL (12.0-16.0); LYMPHOCYTES % 18.9 % (20.0-50.0); MEAN CORPUSCULAR HEMOGLOBIN 29.6 pg (28.0-32.0); MEAN CORPUSCULAR VOLUME 88.8 fL (81.0-99.0); MEAN PLATELET VOLUME 8.6 fl (7.4-10.4); MONOCYTES % 5.6 % (2.0-8.0); NEUTROPHILS % 74.8 % (40.0-76.0); PLATELET 338 x1000/uL (130-400); RED BLOOD CELL COUNT 5.23 mill/uL (4.2-5.4)
[2022-10-20] MEDS ORDERED: SODIUM CHLORIDE 0.9% 1,000 ML IV ONE (08:30)
[2022-10-20] MEDS ORDERED: ENOXAPARIN 80MG/0.8ML SYR SUBCUT ONE (09:15)
[2022-10-20 14:00] VITALS: BP 146/74
[2022-10-20 15:00] VITALS: BP 146/74
[2022-10-20 16:00] VITALS: BP 150/74
[2022-10-20] MEDS ORDERED: SERT150C (17:16)
[2022-10-20] MEDS ORDERED: ACETAMINOPHEN 325MG TABLET PO PRN (18:15)
[2022-10-20 20:00] VITALS: BP 179/118
[2022-10-20] MEDS ORDERED: CLONIDINE 0.1MG TABLET PO PRN (20:45)
[2022-10-20] MEDS: METOCLOPRAMIDE HCL 10MG/2ML VIAL IV PRN (21:20)
[2022-10-20] MEDS ORDERED: NALOXONE HCL 0.4MG/ML VIAL IV PRN (21:30)
[2022-10-20] MEDS ORDERED: HYDROCODONE/ACETAMINOPHEN 10/325MG TABLET PO PRN (21:30)
[2022-10-20] MEDS ORDERED: MORPHINE SULFATE 2 MG/ML CPJ (NOT FOR IM USE) IV NR (21:30)
[2022-10-20] MEDS: INSULIN GLARGINE 100 UNITS/ML SUBCUT SCH (21:38)
[2022-10-21] VITALS: BP 138/72
[2022-10-21 04:00] VITALS: BP 137/86
[2022-10-21 06:03] LABS: BASOPHILS % 0.5 % (0.0-2.0); EOSINOPHILS % 0.9 % (0.0-5.0); HEMATOCRIT. 41.4 % (36.0-48.0); LYMPHOCYTES % 35.9 % (20.0-50.0); MEAN CORPUSCULAR HEMOGLOBIN 29.7 pg (28.0-32.0); MEAN CORPUSCULAR VOLUME 87.9 fL (81.0-99.0); MEAN PLATELET VOLUME 8.2 fl (7.4-10.4); MONOCYTES % 5.9 % (2.0-8.0); NEUTROPHILS % 56.8 % (40.0-76.0); PLATELET 284 x1000/uL (130-400); RED BLOOD CELL COUNT 4.71 mill/uL (4.2-5.4); RED CELL DISTRIBUTION WIDTH 14.1 % (11.6-14.6)
[2022-10-21 06:05] LABS: PROTHROMBIN TIME 10.9 sec (9.6-11.0)
[2022-10-21 08:00] VITALS: BP 155/77
[2022-10-21 08:03] LABS: CHLORIDE 101 mEq/L (98-107)
[2022-10-21] MEDS: METOCLOPRAMIDE HCL 10MG/2ML VIAL IV PRN (09:03)
[2022-10-21] MEDS: INSULIN GLARGINE 100 UNITS/ML SUBCUT SCH (09:04)
[2022-10-21] MEDS ORDERED: POTASSIUM CHLORIDE 20MEQ TABLET SR PO NR (10:45)
[2022-10-21 12:00] VITALS: BP 137/74
[2022-10-21 12:26] VITALS: BP 137/64
[2022-10-21] MEDS ORDERED: SPIRONOLACTONE 25MG TABLET PO SCH (13:00)
[2022-10-21] MEDS ORDERED: FUROSEMIDE 20MG/2ML VIAL IVP SCH (13:00)
== END 2022-10-21 13:55 | disposition home or self-care (01) | DRG 194 ==
LOC: ER 06:58 → 7EST 12:04 → ER 14:27
PROVIDERS: ADMIT Internal Medicine; ATTEND Internal Medicine
DX: I11.0 Hypertensive heart disease with heart failure (principal); I21.A1 Myocardial infarction type 2; R65.10 Systemic inflammatory response syndrome (SIRS) of non-infectious origin without acute organ dysfunction; K31.84 Gastroparesis; E11.43 Type 2 diabetes mellitus with diabetic autonomic (poly)neuropathy; M94.0 Chondrocostal junction syndrome [Tietze]; I50.33 Acute on chronic diastolic (congestive) heart failure; E11.65 Type 2 diabetes mellitus with hyperglycemia; I25.10 Atherosclerotic heart disease of native coronary artery without angina pectoris; E78.00 Pure hypercholesterolemia, unspecified; E66.9 Obesity, unspecified; E87.6 Hypokalemia; Z68.41 Body mass index [BMI] 40.0-44.9, adult; I25.2 Old myocardial infarction; Z86.73 Personal history of transient ischemic attack (TIA), and cerebral infarction without residual deficits; Z79.899 Other long term (current) drug therapy
CPT/HCPCS: 36415; 71045; 80048; 80053; 82962; 83880; 84484; 85025; 93005; 99291; J1650; J1815; J1940; J2270; J2765; J7030

== ENCOUNTER 2022-12-28 19:55 | Emergency (ER) | payer OTHER ==
[~2022-12-28] VITALS: Ht 162.6 cm; Wt 101.9 kg
[~2022-12-28 19:55] MED LIST changes: -LEVO-65 MT; +SERT150C
[2022-12-28 20:03] VITALS: O2SAT 100
[2022-12-28] MEDS ORDERED: MORPHINE SULFATE 4 MG/ML CPJ (NOT FOR IM USE) IV STA (20:58)
[2022-12-28] MEDS ORDERED: ONDANSETRON HCL 4MG/2ML INJ IV STA (20:58)
[2022-12-28] MEDS ORDERED: SODIUM CHLORIDE 0.9% 1,000 ML IV ONE (21:00)
[2022-12-28 21:29] LABS: BASOPHILS % 0.4 % (0.0-2.0); EOSINOPHILS % 0.5 % (0.0-5.0); HEMATOCRIT. 44.9 % (36.0-48.0); HEMOGLOBIN. 15.3 g/dL (12.0-16.0); LYMPHOCYTES % 20.8 % (20.0-50.0); MEAN PLATELET VOLUME 9.2 fl (7.4-10.4); MONOCYTES % 6.3 % (2.0-8.0); PLATELET 348 x1000/uL (130-400); RED BLOOD CELL COUNT 5.11 mill/uL (4.2-5.4); RED CELL DISTRIBUTION WIDTH 13.6 % (11.6-14.6)
[2022-12-28 21:36] LABS: CHLORIDE 103 mEq/L (98-107)
[2022-12-28 21:41] LABS: HCG SCREEN NEGATIVE
[2022-12-28] MEDS ORDERED: ASPIRIN 325MG EC TABLET PO ONE (22:30)
[2022-12-28] MEDS ORDERED: ENOXAPARIN 100MG/ML SYR SUBCUT ONE (23:15)
[2022-12-28] MEDS ORDERED: AMLODIPINE 5MG TABLET PO ONE (23:15)
[2022-12-29 04:37] VITALS: BP 139/75; PULSE 94; RESP 18; TEMP 98.2
== END 2022-12-29 06:00 | disposition short-term general hospital (02) ==
LOC: ER 19:55 → CANBEDREQ 12-29 20:47
DX: I21.4 Non-ST elevation (NSTEMI) myocardial infarction (principal); E11.9 Type 2 diabetes mellitus without complications; I10 Essential (primary) hypertension; E78.00 Pure hypercholesterolemia, unspecified; F12.90 Cannabis use, unspecified, uncomplicated; Z20.822 Contact with and (suspected) exposure to COVID-19; Z88.5 Allergy status to narcotic agent; Z79.4 Long term (current) use of insulin
CPT/HCPCS: 36415; 71045; 74176; 80053; 83690; 84484; 84703; 85025; 87426; 93005; 96361; 96372; 96374; 96375; 99291; C9803; J1650; J2270; J2405; J7030; Z7610

== ENCOUNTER 2023-06-04 21:04 | Inpatient (IN) | payer OTHER ==
[~2023-06-04] VITALS: Ht 317.5 cm; Wt 81.6 kg
[2023-06-04] MEDS ORDERED: METOCLOPRAMIDE HCL 10MG/2ML VIAL IV STA (21:40)
[2023-06-04] MEDS ORDERED: MORPHINE SULFATE 4 MG/ML CPJ (NOT FOR IM USE) IV STA (21:40)
[2023-06-04] MEDS ORDERED: MAGNESIUM/ALUMINUM HYDROXIDE/SIMETHICONE 30ML UDC PO ONE (22:15)
[2023-06-04] MEDS ORDERED: SODIUM CHLORIDE 0.9% 1,000 ML IV ONE (22:15)
[2023-06-04] MEDS ORDERED: MAGNESIUM/ALUMINUM HYDROXIDE/SIMETHICONE 30ML UDC PO NR (23:30)
[2023-06-04] MEDS ORDERED: METOCLOPRAMIDE HCL 10MG/2ML VIAL IV NR (23:30)
[2023-06-04] MEDS ORDERED: MORPHINE SULFATE 4 MG/ML CPJ (NOT FOR IM USE) IV NR (23:30)
[2023-06-04 23:37] LABS: BASOPHILS % 0.4 % (0.0-2.0); EOSINOPHILS % 0.1 % (0.0-5.0); HEMATOCRIT. 48.7 % (36.0-48.0); HEMOGLOBIN. 16.3 g/dL (12.0-16.0); LYMPHOCYTES % 13.2 % (20.0-50.0); MEAN CORPUSCULAR HEMOGLOBIN 29.3 pg (28.0-32.0); MEAN CORPUSCULAR HGB CONC 33.4 g/dL (31.0-37.0); MEAN CORPUSCULAR VOLUME 87.9 fL (81.0-99.0); MEAN PLATELET VOLUME 8.6 fl (7.4-10.4); MONOCYTES % 1.6 % (2.0-8.0); NEUTROPHILS % 84.7 % (40.0-76.0); PLATELET 274 x1000/uL (130-400); RED BLOOD CELL COUNT 5.54 mill/uL (4.2-5.4); RED CELL DISTRIBUTION WIDTH 13.7 % (11.6-14.6); WHITE BLOOD COUNT 13.5 x1000/uL (4.5-11.0)
[2023-06-04 23:44] LABS: PROTHROMBIN TIME 10.5 sec (9.6-11.0)
[2023-06-05] MEDS ORDERED: NICARDIPINE 50 MG in SODIUM CHLORIDE 0.9% 230 ML IV PRN ×2 (00:15→00:30)
[2023-06-05 01:35] LABS: *AMPHETAMINES SCREEN URINE NEGATIVE (NEGATIVE); *BARBITURATES SCREEN URINE NEGATIVE (NEGATIVE); *BENZODIAZEPINES SCREEN URINE NEGATIVE (NEGATIVE); *COCAINE SCREEN URINE NEGATIVE (NEGATIVE); CANNABINOID URINE SCREEN PRESUMPTIVE POSITIVE (NEGATIVE); ECSTASY MDMA SCREEN URINE NEGATIVE (NEGATIVE); METHADONE URINE SCREEN Neg (NEGATIVE); OPIATES URINE SCREEN NEGATIVE (NEGATIVE); PHENCYCLIDINE URINE SCREEN NEGATIVE (NEGATIVE)
[2023-06-05 01:45] LABS: ALANINE AMINOTRANSFERASE 24 IU/L (10-49); ALBUMIN 4.5 g/dL (3.2-4.8); ASPARTATE AMINOTRANSFERASE 37 IU/L (<34); BILIRUBIN TOTAL 1.6 mg/dL (0.1-1.0); CALCIUM 9.7 mg/dL (8.7-10.4); CARBON DIOXIDE 20 mEq/L (21-32); CHLORIDE 99 mEq/L (98-107); CREATININE 0.8 mg/dL (0.6-1.0); GLUCOSE 337 mg/dL (70-105); POTASSIUM 4.8 mEq/L (3.5-5.1); PROTEIN TOTAL 7.8 g/dL (6.0-8.3); SODIUM 135 mEq/L (136-145); UREA NITROGEN BLOOD 9 mg/dL (9-23)
[2023-06-05 02:00] LABS: ETHANOL BLOOD < 10 mg/dL (<10)
[2023-06-05] MEDS ORDERED: METOCLOPRAMIDE HCL 10MG/2ML VIAL IV ONE (02:00)
[2023-06-05] MEDS ORDERED: MORPHINE SULFATE 4 MG/ML CPJ (NOT FOR IM USE) IV ONE (02:00)
[2023-06-05 02:08] LABS: LACTIC ACID 2.3 mmol/L (0.4-2.0)
[2023-06-05 02:15] LABS: CLARITY URINE CLEAR (CLEAR); COLOR URINE YELLOW (YELLOW); GLUCOSE URINE 3+ (NEGATIVE); PH URINE 5.5 (4.5-8.0); PROTEIN URINE 2+ (NEGATIVE); SPECIFIC GRAVITY URINE 1.028 (1.005-1.030)
[2023-06-05] MEDS ORDERED: DEXTROSE 50% WATER 50ML SYRINGE IV PRN ×2 (02:15→13:15)
[2023-06-05] MEDS ORDERED: INSULIN REGULAR (DRIP) 100 UNITS in SODIUM CHLORIDE 0.9% 99 ML IV SCH (02:15)
[2023-06-05] MEDS ORDERED: INSULIN REGULAR (HUMULIN R) 300UNITS/3ML VIAL IV ONE (02:15)
[2023-06-05] MEDS ORDERED: SODIUM BICARBONATE 8.4% 1 MEQ/ML 50ML SYR IV NR (02:15)
[2023-06-05] MEDS ORDERED: KCL 20MEQ/100ML PREMIX 100 ML IV PRN (02:15)
[2023-06-05 02:16] LABS: KETONES URINE 4+ (NEGATIVE); LEUKOCYTE ESTERASE URINE NEGATIVE (NEGATIVE); NITRITE URINE NEGATIVE (NEGATIVE); OCCULT BLOOD URINE TRACE (NEGATIVE); UROBILINOGEN URINE 0.2 E.U./dL (0.2-1.0)
[2023-06-05 02:22] LABS: RBC URINE 0-2 /hpf (0-2); WBC URINE 0-2 /hpf (0-2)
[2023-06-05 02:23] LABS: BACTERIA URINE TRACE; SQUAMOUS EPITHELIAL CELL URINE RARE /lpf (RARE/1+)
[2023-06-05] MEDS ORDERED: INSULIN REGULAR 100U/100ML PMX 100 ML IV SCH (02:30)
[2023-06-05] MEDS: SODIUM CHLORIDE 0.9% 1,000 ML IV SCH ×3 (02:34→10:31)
[2023-06-05] MEDS: BLOOD SUGAR DIAGNOSTIC STRIP TEST SCH ×15 (02:34→21:00)
[2023-06-05 02:41] LABS: BG BASE EXCESS -1.8 mmol/L (-2.0-2.0); BG CARBOXYHEMOGLOBIN 0.7 % (0.5-1.5); BG DEOXYHEMOGLOBIN 2.3 % (0.0-5.0); BG FRACTION INSPIRED OXYGEN 21; BG HCO3 ACT 18.9 mmol/L (22.0-26.0); BG OXYGEN SATURATION 97.7 % (92.0-98.5); BG PCO2 23.7 mmHg (35.0-45.0); BG PH 7.519 (7.350-7.450); BG PO2 97.8 mmHg (75.0-100.0); BG SAMPLE SITE LEFT RADIAL; BG TOTAL HEMOGLOBIN 16.1 g/dL (12.0-18.0); BG VENT MODE ROOM AIR
[2023-06-05 03:09] LABS: CALCIUM 9.5 mg/dL (8.7-10.4); CARBON DIOXIDE 19 mEq/L (21-32); CHLORIDE 101 mEq/L (98-107); CREATININE 0.8 mg/dL (0.6-1.0); GLUCOSE 320 mg/dL (70-105); PHOSPHORUS 2.6 mg/dL (2.5-4.9); POTASSIUM 4.1 mEq/L (3.5-5.1); SODIUM 136 mEq/L (136-145); UREA NITROGEN BLOOD 5 mg/dL (9-23)
[2023-06-05] MEDS: DEXT 5%/0.9% NACL 1,000 ML IV SCH ×3 (03:47→11:45)
[2023-06-05 10:10] LABS: CALCIUM 8.9 mg/dL (8.7-10.4); CARBON DIOXIDE 25 mEq/L (21-32); CHLORIDE 108 mEq/L (98-107); CREATININE 0.6 mg/dL (0.6-1.0); GLUCOSE 121 mg/dL (70-105); POTASSIUM 3.5 mEq/L (3.5-5.1); SODIUM 142 mEq/L (136-145); UREA NITROGEN BLOOD 5 mg/dL (9-23)
[2023-06-05] MEDS ORDERED: ONDANSETRON HCL 4MG/2ML INJ IV PRN (13:15)
[2023-06-05] MEDS ORDERED: ACETAMINOPHEN 325MG TABLET PO PRN (13:15)
[2023-06-05] MEDS ORDERED: INSULIN GLARGINE 100 UNITS/ML SUBCUT NR (13:15)
[2023-06-05] MEDS: INSULIN LISPRO 100 UNITS/ML SUBCUT SCH ×3 (13:30→21:00)
[2023-06-05 16:00] VITALS: BP 129/75; PULSE 74; RESP 18; TEMP 96.6
[2023-06-05 17:25] VITALS: BP 129/74; PULSE 74; RESP 18; TEMP 96.6
[2023-06-05 20:00] VITALS: BP 112/58; PULSE 82; RESP 18; TEMP 97.9
[2023-06-05] MEDS: INSULIN GLARGINE 100 UNITS/ML SUBCUT SCH (21:25)
[2023-06-06] MEDS ORDERED: METOCLOPRAMIDE HCL 10MG/2ML VIAL IV SCH
[2023-06-06 04:00] VITALS: BP 126/66; PULSE 80; RESP 17; TEMP 97.4
[2023-06-06] MEDS: INSULIN LISPRO 100 UNITS/ML SUBCUT SCH ×2 (07:50→13:29)
[2023-06-06 08:14] VITALS: BP 152/92; PULSE 85; RESP 18; TEMP 97
[2023-06-06] MEDS: INSULIN GLARGINE 100 UNITS/ML SUBCUT SCH (10:06)
[2023-06-06] MEDS ORDERED: METO-293 MT (11:19)
[2023-06-06 12:06] VITALS: BP 141/79; PULSE 19; RESP 19; TEMP 98
[2023-06-06] MEDS: BLOOD SUGAR DIAGNOSTIC STRIP TEST SCH (12:20)
[2023-06-06 12:59] VITALS: BP 141/79; PULSE 85; TEMP 98; O2SAT 99
== END 2023-06-06 14:40 | disposition home or self-care (01) | DRG 48 ==
LOC: ER 21:04 → MICUSO 06-05 04:32 → 6WST 06-05 16:36
PROVIDERS: ADMIT Internal Medicine; ATTEND Internal Medicine
DX: E11.43 Type 2 diabetes mellitus with diabetic autonomic (poly)neuropathy (principal); I11.0 Hypertensive heart disease with heart failure; I50.9 Heart failure, unspecified; E11.65 Type 2 diabetes mellitus with hyperglycemia; E66.9 Obesity, unspecified; D72.829 Elevated white blood cell count, unspecified; K31.84 Gastroparesis; I25.2 Old myocardial infarction; Z86.73 Personal history of transient ischemic attack (TIA), and cerebral infarction without residual deficits; Z91.148 Patient's other noncompliance with medication regimen for other reason; Z68.1 Body mass index [BMI] 19.9 or less, adult; Z88.8 Allergy status to other drugs, medicaments and biological substances
CPT/HCPCS: 36415; 36600; 80048; 80053; 80305; 80320; 81003; 82010; 82375; 82805; 82962; 83605; 83735; 83930; 84100; 85025; 99285; J1815; J2270; J2765; J3490; J7030; J7042; G0480

== ENCOUNTER 2023-09-28 19:26 | Emergency (ER) | payer OTHER ==
[~2023-09-28] VITALS: Ht 165.1 cm; Wt 91.0 kg
[~2023-09-28 19:26] MED LIST changes: +INSU100I68 SUBCUT; +METO-293 MT
[2023-09-28 19:31] VITALS: O2SAT 100
[2023-09-29] MEDS: METOCLOPRAMIDE HCL 5MG TABLET PO ONE (00:39)
[2023-09-29 01:04] LABS: BASOPHILS % 0.2 % (0.0-2.0); HEMATOCRIT. 47.1 % (36.0-48.0); HEMOGLOBIN. 15.7 g/dL (12.0-16.0); LYMPHOCYTES % 10.1 % (20.0-50.0); MEAN CORPUSCULAR HGB CONC 33.4 g/dL (31.0-37.0); MEAN CORPUSCULAR VOLUME 89.9 fL (81.0-99.0); MEAN PLATELET VOLUME 8.2 fl (7.4-10.4); MONOCYTES % 1.9 % (2.0-8.0); NEUTROPHILS % 87.8 % (40.0-76.0); PLATELET 380 x1000/uL (130-400); RED BLOOD CELL COUNT 5.24 mill/uL (4.2-5.4); RED CELL DISTRIBUTION WIDTH 13.3 % (11.6-14.6); WHITE BLOOD COUNT 17.6 x1000/uL (4.5-11.0)
[2023-09-29] MEDS: HALOPERIDOL LACTATE 5MG/ML VIAL IM ONE (01:26)
[2023-09-29 01:33] LABS: HCG SCREEN NEGATIVE
[2023-09-29] MEDS: KETOROLAC 15MG/ML VIAL IM ONE (01:37)
[2023-09-29 01:41] LABS: ALANINE AMINOTRANSFERASE 24 IU/L (10-49); ALBUMIN 4.8 g/dL (3.2-4.8); ASPARTATE AMINOTRANSFERASE 20 IU/L (<34); CALCIUM 9.6 mg/dL (8.7-10.4); CARBON DIOXIDE 21 mEq/L (21-32); CHLORIDE 100 mEq/L (98-107); CREATININE 0.9 mg/dL (0.6-1.0); POTASSIUM 3.5 mEq/L (3.5-5.1); PROTEIN TOTAL 8.6 g/dL (6.0-8.3); SODIUM 136 mEq/L (136-145); UREA NITROGEN BLOOD 9 mg/dL (9-23)
[2023-09-29 01:57] LABS: GLUCOSE 432 mg/dL (70-105)
[2023-09-29] MEDS: SODIUM CHLORIDE 0.9% 1,000 ML IV ONE (02:59)
[2023-09-29 03:56] LABS: CLARITY URINE CLEAR (CLEAR); COLOR URINE YELLOW (YELLOW); GLUCOSE URINE 3+ (NEGATIVE); KETONES URINE 4+ (NEGATIVE); LEUKOCYTE ESTERASE URINE NEGATIVE (NEGATIVE); NITRITE URINE NEGATIVE (NEGATIVE); OCCULT BLOOD URINE NEGATIVE (NEGATIVE); PROTEIN URINE 3+ (NEGATIVE); SPECIFIC GRAVITY URINE 1.037 (1.005-1.030); UROBILINOGEN URINE 0.2 E.U./dL (0.2-1.0)
[2023-09-29 05:03] LABS: SQUAMOUS EPITHELIAL CELL URINE FEW /lpf (RARE/1+)
[2023-09-29 05:06] LABS: BACTERIA URINE NONE SEEN; RBC URINE 0-2 /hpf (0-2); WBC URINE 0-2 /hpf (0-2)
[2023-09-29 06:51] VITALS: BP 150/49; PULSE 98; RESP 18; TEMP 98.7
[2023-10-15] MEDS ORDERED: GABA-529 PO (21:04)
[2023-10-15] MEDS ORDERED: PANT40SU PO (21:05)
[2023-10-15] MEDS ORDERED: ASPI-1160 PO (21:07)
[2023-10-15] MEDS ORDERED: LOSA25TA26 PO (21:07)
[2023-10-15] MEDS ORDERED: INSU100I32 SUBCUT (21:07)
[2023-10-15] MEDS ORDERED: ATOR40TA70 PO (21:07)
[2023-10-15] MEDS ORDERED: SERT-422 PO (21:07)
[2023-10-15] MEDS ORDERED: METO5SOL PO (21:08)
[2023-10-17] MEDS ORDERED: ONDA4TAB11 PO (12:59)
== END 2023-09-29 09:07 | disposition short-term general hospital (02) ==
LOC: ER 19:29
DX: E11.65 Type 2 diabetes mellitus with hyperglycemia (principal); I11.0 Hypertensive heart disease with heart failure; I50.9 Heart failure, unspecified; I25.2 Old myocardial infarction; Z86.73 Personal history of transient ischemic attack (TIA), and cerebral infarction without residual deficits; Z79.899 Other long term (current) drug therapy
CPT/HCPCS: 99285; 80053; 81003; 84703; 85025; 36415; 74176; 93005; 96360; 96372; J8597; J1630; J1885; J7030; Z7610

== ENCOUNTER 2023-10-19 20:01 | Inpatient (IN) | payer OTHER ==
[~2023-10-19] VITALS: Ht 162.6 cm; Wt 102.1 kg
[~2023-10-19 20:01] MED LIST changes: +ASPI-1160 PO; +ATOR40TA70 PO; -ATOR80TA PO; -INSU100C6; -INSU100I28 SQ; +INSU100I32 SUBCUT; -MAG355OR21 MT; -METO-293 MT; -METO-396 PO; -METO10TA3 MT; +METO5SOL PO; +ONDA4TAB11 PO; +PANT40SU PO; -PANT40TA51 PO; +SERT-422 PO; -SERT150C
[2023-10-20 02:13] LABS: BASOPHILS % 0.6 % (0.0-2.0); EOSINOPHILS % 0.1 % (0.0-5.0); HEMATOCRIT. 46.1 % (36.0-48.0); HEMOGLOBIN. 15.8 g/dL (12.0-16.0); LYMPHOCYTES % 24.9 % (20.0-50.0); MEAN CORPUSCULAR HEMOGLOBIN 29.7 pg (28.0-32.0); MEAN CORPUSCULAR HGB CONC 34.3 g/dL (31.0-37.0); MEAN CORPUSCULAR VOLUME 86.6 fL (81.0-99.0); MEAN PLATELET VOLUME 8.1 fl (7.4-10.4); MONOCYTES % 5.1 % (2.0-8.0); NEUTROPHILS % 69.3 % (40.0-76.0); PLATELET 454 x1000/uL (130-400); RED BLOOD CELL COUNT 5.32 mill/uL (4.2-5.4); RED CELL DISTRIBUTION WIDTH 13.9 % (11.6-14.6); WHITE BLOOD COUNT 20.3 x1000/uL (4.5-11.0)
[2023-10-20 02:15] LABS: ALANINE AMINOTRANSFERASE 22 IU/L (10-49); ALBUMIN 4.8 g/dL (3.2-4.8); ASPARTATE AMINOTRANSFERASE 28 IU/L (<34); BILIRUBIN TOTAL 1.5 mg/dL (0.1-1.0); CALCIUM 9.3 mg/dL (8.7-10.4); CARBON DIOXIDE 26 mEq/L (21-32); CHLORIDE 97 mEq/L (98-107); CREATININE 1.2 mg/dL (0.6-1.0); GLUCOSE 306 mg/dL (70-105); POTASSIUM 3.4 mEq/L (3.5-5.1); PROTEIN TOTAL 8.1 g/dL (6.0-8.3); SODIUM 135 mEq/L (136-145); UREA NITROGEN BLOOD 17 mg/dL (9-23)
[2023-10-20] MEDS: CEFTRIAXONE 1GM/50ML 50 ML IV ONE (06:12)
[2023-10-20 07:08] LABS: TROPONIN I HIGH SENSITIVITY 434 ng/L (3.0-34)
[2023-10-20] MEDS ORDERED: IOHEXOL-300 100 ML BOTTLE ONE (07:21)
[2023-10-20 08:00] VITALS: PULSE 96; RESP 19; TEMP 96.4
[2023-10-20] MEDS: ASPIRIN 325MG EC TABLET PO NR (08:27)
[2023-10-20] MEDS: ENOXAPARIN 80MG/0.8ML SYR SUBCUT SCH (08:28)
[2023-10-20 09:00] VITALS: BP 104/59; PULSE 97; RESP 18; TEMP 97.8
[2023-10-20] MEDS ORDERED: ONDANSETRON HCL 4MG/2ML INJ IV PRN (10:45)
[2023-10-20] MEDS ORDERED: DEXTROSE 50% WATER 50ML SYRINGE IV PRN (10:45)
[2023-10-20 11:00] LABS: PROTHROMBIN TIME 11.4 sec (9.6-11.0)
[2023-10-20 11:31] LABS: TROPONIN I HIGH SENSITIVITY 78 ng/L (3.0-34)
[2023-10-20 12:00] VITALS: BP 98/58; PULSE 70; RESP 17; TEMP 98
[2023-10-20] MEDS: BLOOD SUGAR DIAGNOSTIC STRIP TEST SCH (12:14)
[2023-10-20] MEDS: METOCLOPRAMIDE HCL 10MG/2ML VIAL IV PRN (12:41)
[2023-10-20] MEDS: POTASSIUM CHLORIDE 20MEQ TABLET SR PO NR (12:42)
[2023-10-20] MEDS: INSULIN LISPRO 100 UNITS/ML SUBCUT SCH (12:43)
[2023-10-20] MEDS: INSULIN GLARGINE 100 UNITS/ML SUBCUT NR (12:44)
[2023-10-20] MEDS: PANTOPRAZOLE 40MG DR TABLET PO SCH (12:48)
[2023-10-20] MEDS: LACTATED RINGERS 1,000 ML IV SCH (13:39)
[2023-10-20 16:00] VITALS: BP 116/64; PULSE 80; RESP 20; TEMP 98.5
[2023-10-20 19:02] LABS: CLARITY URINE CLOUDY (CLEAR); COLOR URINE DARK YELLOW (YELLOW); GLUCOSE URINE TRACE (NEGATIVE); KETONES URINE TRACE (NEGATIVE); LEUKOCYTE ESTERASE URINE NEGATIVE (NEGATIVE); NITRITE URINE NEGATIVE (NEGATIVE); OCCULT BLOOD URINE NEGATIVE (NEGATIVE); PH URINE 5.5 (4.5-8.0); PROTEIN URINE 2+ (NEGATIVE); SPECIFIC GRAVITY URINE 1.073 (1.005-1.030)
[2023-10-20 19:14] LABS: BACTERIA URINE 2+; RBC URINE 0-2 /hpf (0-2); SQUAMOUS EPITHELIAL CELL URINE 3+ /lpf (RARE/1+)
[2023-10-20 19:15] LABS: WBC URINE 0-2 /hpf (0-2)
[2023-10-20 20:00] VITALS: BP 110/60; PULSE 90; RESP 18; TEMP 98.2
[2023-10-20 20:42] VITALS: O2SAT 100
[2023-10-20] MEDS: ENOXAPARIN 80MG/0.8ML SYR SUBCUT NR (21:07)
[2023-10-20] MEDS: ATORVASTATIN CALCIUM 40MG TABLET PO SCH (21:07)
[2023-10-20] MEDS: INSULIN GLARGINE 100 UNITS/ML SUBCUT SCH (21:08)
[2023-10-21] VITALS: BP 109/56; PULSE 84; RESP 18; TEMP 99.7
[2023-10-21 04:00] VITALS: BP 116/61; PULSE 70; RESP 20; TEMP 98.2
[2023-10-21 05:49] LABS: BASOPHILS % 0.4 % (0.0-2.0); EOSINOPHILS % 1.9 % (0.0-5.0); HEMATOCRIT. 39.6 % (36.0-48.0); HEMOGLOBIN. 13.4 g/dL (12.0-16.0); LYMPHOCYTES % 40.2 % (20.0-50.0); MEAN CORPUSCULAR HEMOGLOBIN 30.1 pg (28.0-32.0); MEAN CORPUSCULAR HGB CONC 33.7 g/dL (31.0-37.0); MEAN CORPUSCULAR VOLUME 89.3 fL (81.0-99.0); MEAN PLATELET VOLUME 8.7 fl (7.4-10.4); MONOCYTES % 5.4 % (2.0-8.0); NEUTROPHILS % 52.1 % (40.0-76.0); PLATELET 326 x1000/uL (130-400); RED BLOOD CELL COUNT 4.44 mill/uL (4.2-5.4); RED CELL DISTRIBUTION WIDTH 13.5 % (11.6-14.6)
[2023-10-21 06:07] LABS: CALCIUM 8.2 mg/dL (8.7-10.4); CARBON DIOXIDE 26 mEq/L (21-32); CHLORIDE 102 mEq/L (98-107); CREATININE 0.7 mg/dL (0.6-1.0); GLUCOSE 150 mg/dL (70-105); POTASSIUM 3.5 mEq/L (3.5-5.1); SODIUM 138 mEq/L (136-145); UREA NITROGEN BLOOD 15 mg/dL (9-23)
[2023-10-21 08:00] VITALS: BP 139/75; PULSE 71; RESP 18; TEMP 97
[2023-10-21] MEDS: ASPIRIN 81MG TABLET PO SCH (08:48)
[2023-10-21] MEDS ORDERED: LIDOCAINE HCL/PF 1% 10 MG/ML 5ML VIAL ONE (09:42)
[2023-10-21] MEDS ORDERED: VERAPAMIL HCL 2.5 MG/1 ML 2ML VIAL IV ONE (09:42)
[2023-10-21] MEDS ORDERED: DIPHENHYDRAMINE 50MG/ML VIAL ONE (09:42)
[2023-10-21] MEDS ORDERED: IODIXANOL 320MG/ML 100 ML BOTTLE IV ONE (09:43)
[2023-10-21] MEDS ORDERED: HEPARIN 1000 UNITS/ML 10ML ONE (09:43)
[2023-10-21] MEDS ORDERED: MIDAZOLAM HCL 2 MG/2 ML VIAL ONE (10:04)
[2023-10-21] MEDS ORDERED: FENTANYL CITRATE/PF 50MCG/ML 2ML VIAL ONE (10:16)
[2023-10-21] MEDS ORDERED: ATROPINE SULFATE 1MG/10ML SYR IV PRN (11:00)
[2023-10-21] MEDS ORDERED: ACETAMINOPHEN 325MG TABLET PO PRN (11:00)
[2023-10-21 16:00] VITALS: BP 132/79; PULSE 85; RESP 20; TEMP 97.3
[2023-10-21 16:18] VITALS: BP 125/62; PULSE 71; TEMP 98.5; O2SAT 100
== END 2023-10-21 17:10 | disposition home or self-care (01) | DRG 190 ==
LOC: ER 20:01 → 7WST 10-20 07:33
PROVIDERS: ADMIT Internal Medicine; ATTEND Internal Medicine
PROC: 4A023N7 Measurement of Cardiac Sampling and Pressure, Left Heart, Percutaneous Approach (ICD-10-PCS; principal; 2023-10-21)
PROC: B2111ZZ Fluoroscopy of Multiple Coronary Arteries using Low Osmolar Contrast (ICD-10-PCS; 2023-10-21)
DX: I21.4 Non-ST elevation (NSTEMI) myocardial infarction (principal); N17.9 Acute kidney failure, unspecified; E11.43 Type 2 diabetes mellitus with diabetic autonomic (poly)neuropathy; E11.65 Type 2 diabetes mellitus with hyperglycemia; E86.0 Dehydration; K31.84 Gastroparesis; E66.9 Obesity, unspecified; D72.829 Elevated white blood cell count, unspecified; I11.0 Hypertensive heart disease with heart failure; I50.9 Heart failure, unspecified; Z68.38 Body mass index [BMI] 38.0-38.9, adult; I73.9 Peripheral vascular disease, unspecified; I25.10 Atherosclerotic heart disease of native coronary artery without angina pectoris; I16.0 Hypertensive urgency; E87.6 Hypokalemia; K21.9 Gastro-esophageal reflux disease without esophagitis; Z86.73 Personal history of transient ischemic attack (TIA), and cerebral infarction without residual deficits
CPT/HCPCS: 36415; 71045; 74177; 80048; 80053; 81003; 82962; 83605; 83880; 84145; 84484; 85025; 93005; 93458; 99291; C1769; C1887; C1893; J0696; J1200; J1644; J1650; J1815; J2250; J2765; J3010; J3490; J7120; Q9967

== ENCOUNTER 2024-01-10 18:13 | Emergency (ER) | payer OTHER ==
[~2024-01-10] VITALS: Ht 167.6 cm; Wt 120.0 kg
[~2024-01-10 18:13] MED LIST changes: +LOSA-412 PO; +LOSA25TA26 PO; +METO-396 PO; +PANT40TA51 PO
[2024-01-10 18:30] VITALS: O2SAT 98
[2024-01-10 20:09] LABS: BASOPHILS % 0.3 % (0.0-2.0); EOSINOPHILS % 0.7 % (0.0-5.0); HEMATOCRIT. 42.2 % (36.0-48.0); HEMOGLOBIN. 14.3 g/dL (12.0-16.0); LYMPHOCYTES % 17.1 % (20.0-50.0); MEAN CORPUSCULAR HGB CONC 33.8 g/dL (31.0-37.0); MEAN CORPUSCULAR VOLUME 88.8 fL (81.0-99.0); MEAN PLATELET VOLUME 8.3 fl (7.4-10.4); MONOCYTES % 4.9 % (2.0-8.0); PLATELET 370 x1000/uL (130-400); RED BLOOD CELL COUNT 4.76 mill/uL (4.2-5.4); RED CELL DISTRIBUTION WIDTH 13.9 % (11.6-14.6); WHITE BLOOD COUNT 13.7 x1000/uL (4.5-11.0)
[2024-01-10 20:13] LABS: CHLORIDE 103 mEq/L (98-107); POTASSIUM 3.6 mEq/L (3.5-5.1); SODIUM 140 mEq/L (136-145)
[2024-01-10 20:14] LABS: CALCIUM 9.1 mg/dL (8.7-10.4); CARBON DIOXIDE 22 mEq/L (21-32)
[2024-01-10 20:17] LABS: INR 0.9; PROTHROMBIN TIME 10.6 sec (9.6-11.0)
[2024-01-10] MEDS: PANTOPRAZOLE SODIUM 40 MG/VIAL IV SCH (20:18)
[2024-01-10 20:19] LABS: CREATININE 0.8 mg/dL (0.6-1.0); GLUCOSE 227 mg/dL (70-105); UREA NITROGEN BLOOD 7 mg/dL (9-23)
[2024-01-10] MEDS: ONDANSETRON HCL 4MG/2ML INJ IV ONE (20:19)
[2024-01-10] MEDS: SODIUM CHLORIDE 0.9% 1,000 ML IV ONE (20:19)
[2024-01-10 20:21] LABS: TROPONIN I HIGH SENSITIVITY 137 ng/L (3.0-34)
[2024-01-10] MEDS: MORPHINE SULFATE 4 MG/ML INJ (FOR IV/IM USE) IV ONE (20:31)
[2024-01-10] MEDS: METOCLOPRAMIDE HCL 10MG/2ML VIAL IV ONE (20:32)
[2024-01-10] MEDS: HYDROMORPHONE HCL/PF 2MG/ML CPJ IV ONE (21:59)
[2024-01-10 22:00] VITALS: TEMP 98.5
[2024-01-10 23:56] LABS: TROPONIN I HIGH SENSITIVITY 139 ng/L (3.0-34)
[2024-01-11 01:16] LABS: TROPONIN I HIGH SENSITIVITY 154 ng/L (3.0-34)
[2024-01-11 01:27] LABS: CLARITY URINE CLEAR (CLEAR); COLOR URINE YELLOW (YELLOW); GLUCOSE URINE 2+ (NEGATIVE); KETONES URINE 3+ (NEGATIVE); LEUKOCYTE ESTERASE URINE TRACE (NEGATIVE); NITRITE URINE NEGATIVE (NEGATIVE); OCCULT BLOOD URINE NEGATIVE (NEGATIVE); PH URINE 5.5 (4.5-8.0); PROTEIN URINE 2+ (NEGATIVE); SPECIFIC GRAVITY URINE 1.023 (1.005-1.030)
[2024-01-11 03:20] LABS: SQUAMOUS EPITHELIAL CELL URINE 1+ /lpf (RARE/1+)
[2024-01-11 03:29] LABS: RBC URINE 0-2 /hpf (0-2)
[2024-01-11 03:31] LABS: BACTERIA URINE 1+
[2024-01-11 03:46] VITALS: BP 152/85; PULSE 76; RESP 12
== END 2024-01-11 04:10 | disposition short-term general hospital (02) ==
LOC: ER 18:13 → CANBEDREQ 01-11 03:48 → ER 01-11 04:10
DX: I21.4 Non-ST elevation (NSTEMI) myocardial infarction (principal); E11.43 Type 2 diabetes mellitus with diabetic autonomic (poly)neuropathy; K31.84 Gastroparesis; K21.9 Gastro-esophageal reflux disease without esophagitis; I11.0 Hypertensive heart disease with heart failure; I50.9 Heart failure, unspecified; I25.2 Old myocardial infarction; Z86.73 Personal history of transient ischemic attack (TIA), and cerebral infarction without residual deficits; Z86.711 Personal history of pulmonary embolism; Z79.01 Long term (current) use of anticoagulants
CPT/HCPCS: 80048; 83880; 83690; 85025; 85610; 84484 ×2; 36415; 93005; 96365; 96366; 96375; 99285; 81003; J2765; J2405; C9113; J1170; J2270; J7030; Z7610 ×3

== ENCOUNTER 2024-04-16 22:38 | Emergency (ER) | payer OTHER ==
[~2024-04-16] VITALS: Ht 165.1 cm; Wt 110.0 kg
[~2024-04-16 22:38] MED LIST changes: +CEPH500C2 MT; -LOSA25TA26 PO; +METO-293 MT; -METO5SOL PO; -ONDA4TAB11 PO; -PANT40SU PO
[2024-04-16 22:40] VITALS: O2SAT 98
[2024-04-16 23:37] LABS: BASOPHILS % 0.4 % (0.0-2.0); HEMATOCRIT. 44.4 % (36.0-48.0); HEMOGLOBIN. 14.6 g/dL (12.0-16.0); LYMPHOCYTES % 20.4 % (20.0-50.0); MEAN CORPUSCULAR HEMOGLOBIN 29.3 pg (28.0-32.0); MEAN CORPUSCULAR HGB CONC 32.9 g/dL (31.0-37.0); MEAN CORPUSCULAR VOLUME 88.9 fL (81.0-99.0); MEAN PLATELET VOLUME 7.7 fl (7.4-10.4); MONOCYTES % 5.7 % (2.0-8.0); NEUTROPHILS % 72.5 % (40.0-76.0); PLATELET 366 x1000/uL (130-400); WHITE BLOOD COUNT 16.2 x1000/uL (4.5-11.0)
[2024-04-16] MEDS: ONDANSETRON HCL 4MG/2ML INJ IV ONE (23:44)
[2024-04-16] MEDS: SODIUM CHLORIDE 0.9% 1,000 ML IV ONE (23:44)
[2024-04-16] MEDS: FAMOTIDINE 20MG/2ML VIAL IV STA (23:44)
[2024-04-16 23:46] LABS: CHLORIDE 103 mEq/L (98-107); POTASSIUM 3.7 mEq/L (3.5-5.1); SODIUM 136 mEq/L (136-145)
[2024-04-16 23:47] LABS: CALCIUM 9.4 mg/dL (8.7-10.4); CARBON DIOXIDE 25 mEq/L (21-32)
[2024-04-16] MEDS: HALOPERIDOL LACTATE 5MG/ML VIAL IM ONE (23:51)
[2024-04-16 23:52] LABS: CREATININE 0.9 mg/dL (0.6-1.0); GLUCOSE 235 mg/dL (70-105)
[2024-04-16 23:53] LABS: UREA NITROGEN BLOOD 11 mg/dL (9-23)
[2024-04-16 23:54] LABS: ALANINE AMINOTRANSFERASE 21 IU/L (10-49); ALBUMIN 4.5 g/dL (3.2-4.8); ASPARTATE AMINOTRANSFERASE 18 IU/L (<34); BILIRUBIN DIRECT 0.5 mg/dL (<=3.0)
[2024-04-16 23:55] LABS: BILIRUBIN TOTAL 1.6 mg/dL (0.1-1.0); PROTEIN TOTAL 7.9 g/dL (6.0-8.3)
[2024-04-17] MEDS: KETOROLAC 30MG/ML VIAL IV ONE (01:22)
[2024-04-17 01:28] LABS: CLARITY URINE CLEAR (CLEAR); COLOR URINE YELLOW (YELLOW); GLUCOSE URINE 1+ (NEGATIVE); KETONES URINE 2+ (NEGATIVE); LEUKOCYTE ESTERASE URINE NEGATIVE (NEGATIVE); NITRITE URINE NEGATIVE (NEGATIVE); OCCULT BLOOD URINE NEGATIVE (NEGATIVE); PROTEIN URINE 2+ (NEGATIVE); SPECIFIC GRAVITY URINE 1.014 (1.005-1.030)
[2024-04-17 01:35] LABS: *AMPHETAMINES SCREEN URINE NEGATIVE (NEGATIVE); *BARBITURATES SCREEN URINE NEGATIVE (NEGATIVE); *BENZODIAZEPINES SCREEN URINE NEGATIVE (NEGATIVE); *COCAINE SCREEN URINE NEGATIVE (NEGATIVE); CANNABINOID URINE SCREEN PRESUMPTIVE POSITIVE (NEGATIVE); METHADONE URINE SCREEN NEGATIVE (NEGATIVE); OPIATES URINE SCREEN NEGATIVE (NEGATIVE); PHENCYCLIDINE URINE SCREEN NEGATIVE (NEGATIVE)
[2024-04-17 01:36] LABS: ECSTASY MDMA SCREEN URINE NEGATIVE (NEGATIVE)
[2024-04-17 02:11] LABS: BACTERIA URINE 1+; RBC URINE 0-2 /hpf (0-2); SQUAMOUS EPITHELIAL CELL URINE FEW /lpf (RARE/1+); WBC URINE 0-2 /hpf (0-2)
[2024-04-17 03:52] VITALS: BP 105/58; PULSE 85; RESP 20; TEMP 37.00296; O2SAT 100
== END 2024-04-17 04:25 | disposition short-term general hospital (02) ==
LOC: ER 22:38
DX: K31.84 Gastroparesis (principal); I10 Essential (primary) hypertension; Z86.73 Personal history of transient ischemic attack (TIA), and cerebral infarction without residual deficits; Z79.899 Other long term (current) drug therapy; Z79.4 Long term (current) use of insulin; Z79.82 Long term (current) use of aspirin; Z79.01 Long term (current) use of anticoagulants
CPT/HCPCS: 99285; 96374; 96361; 96375 ×2; 80076; 80048; 83690; 85025; 36415; 96372; 80305; 81003; J3490; J1630; J2405; J7030; J1885

== ENCOUNTER 2024-04-24 10:00 | Inpatient (IN) | payer OTHER ==
[~2024-04-24] VITALS: Ht 167.6 cm; Wt 91.2 kg
[2024-04-24 10:05] VITALS: O2SAT 98
[2024-04-24 10:56] LABS: BASOPHILS % 0.4 % (0.0-2.0); EOSINOPHILS % 0.5 % (0.0-5.0); HEMATOCRIT. 41.1 % (36.0-48.0); LYMPHOCYTES % 16.5 % (20.0-50.0); MEAN CORPUSCULAR HEMOGLOBIN 29.8 pg (28.0-32.0); MEAN CORPUSCULAR VOLUME 87.6 fL (81.0-99.0); MEAN PLATELET VOLUME 7.8 fl (7.4-10.4); MONOCYTES % 3.6 % (2.0-8.0); PLATELET 364 x1000/uL (130-400); RED CELL DISTRIBUTION WIDTH 13.7 % (11.6-14.6); WHITE BLOOD COUNT 14.7 x1000/uL (4.5-11.0)
[2024-04-24 10:57] LABS: CARBON DIOXIDE 26 mEq/L (21-32); CHLORIDE 105 mEq/L (98-107); POTASSIUM 3.3 mEq/L (3.5-5.1); SODIUM 138 mEq/L (136-145)
[2024-04-24 10:58] LABS: CALCIUM 9.6 mg/dL (8.7-10.4)
[2024-04-24 11:02] LABS: CREATININE 0.7 mg/dL (0.6-1.0)
[2024-04-24 11:03] LABS: GLUCOSE 218 mg/dL (70-105); UREA NITROGEN BLOOD 8 mg/dL (9-23)
[2024-04-24 11:04] LABS: ALANINE AMINOTRANSFERASE 22 IU/L (10-49)
[2024-04-24 11:05] LABS: ALBUMIN 4.4 g/dL (3.2-4.8); ASPARTATE AMINOTRANSFERASE 18 IU/L (<34); BILIRUBIN DIRECT 0.2 mg/dL (<=3.0); BILIRUBIN TOTAL 0.7 mg/dL (0.1-1.0); PROTEIN TOTAL 7.7 g/dL (6.0-8.3)
[2024-04-24 11:15] LABS: TROPONIN I HIGH SENSITIVITY 45 ng/L (3.0-34)
[2024-04-24] MEDS: SODIUM CHLORIDE 0.9% 500 ML IV ONE (12:15)
[2024-04-24] MEDS: FAMOTIDINE 20MG/2ML VIAL IV ONE (12:15)
[2024-04-24] MEDS: ACETAMINOPHEN 1000MG/100ML 100 ML IV ONE (12:15)
[2024-04-24] MEDS: ONDANSETRON HCL 4MG/2ML INJ IV ONE (12:15)
[2024-04-24] MEDS: MAGNESIUM/ALUMINUM HYDROXIDE/SIMETHICONE 30ML UDC PO SCH (13:01)
[2024-04-24] MEDS: KETOROLAC 30MG/ML VIAL IV ONE (13:26)
[2024-04-24 13:27] LABS: TROPONIN I HIGH SENSITIVITY 42 ng/L (3.0-34)
[2024-04-24] MEDS: LOSARTAN 50 MG TABLET PO ONE (13:28)
[2024-04-24] MEDS: METOPROLOL TARTRATE 5MG/5ML VIAL IV NR (13:42)
[2024-04-24] MEDS: MORPHINE SULFATE 4 MG/ML INJ (FOR IV/IM USE) IV STA (14:21)
[2024-04-24] MEDS: PIPERACILLIN/TAZO 3.375G/50ML 50 ML IV ONE (14:22)
[2024-04-24] MEDS ORDERED: IPRATROPIUM/ALBUTEROL 0.5-3(2.5)MG/3ML NEB HHN PRN (16:00)
[2024-04-24] MEDS ORDERED: ACETAMINOPHEN 325MG TABLET PO PRN (16:00)
[2024-04-24] MEDS: LABETALOL 5MG/ML 4ML INJ IV NR (16:09)
[2024-04-24] MEDS: VANCOMYCIN 1G PREMIX 200 ML IV ONE (16:29)
[2024-04-24] MEDS ORDERED: DEXTROSE 50% WATER 50ML SYRINGE IV PRN (16:30)
[2024-04-24] MEDS: BLOOD SUGAR DIAGNOSTIC STRIP TEST SCH (17:54)
[2024-04-24] MEDS: PANTOPRAZOLE SODIUM 40 MG/VIAL IV SCH (18:11)
[2024-04-24] MEDS: CEFTRIAXONE 1GM/50ML 50 ML IV SCH (18:11)
[2024-04-24] MEDS: INSULIN LISPRO 100 UNITS/ML SUBCUT SCH (18:51)
[2024-04-24] MEDS: SODIUM CHLORIDE 0.9% 1000ML BAG (SEPSIS BOLUS) IV ONE (19:20)
[2024-04-24] MEDS: ONDANSETRON HCL 4MG/2ML INJ IV PRN (19:53)
[2024-04-24] MEDS: KETOROLAC 15MG/ML VIAL IV PRN (19:53)
[2024-04-24] MEDS: HYDRALAZINE 20MG/ML VIAL IV PRN (19:54)
[2024-04-24] MEDS: CARVEDILOL 6.25 MG TABLET PO SCH (19:55)
[2024-04-24] MEDS: METRONIDAZOLE 500 MG PREMIX 100 ML IV SCH (19:56)
[2024-04-24] MEDS ORDERED: CARVEDILOL 6.25 MG TABLET PO SCH (21:00)
[2024-04-24] MEDS: ATORVASTATIN CALCIUM 40MG TABLET PO SCH (21:51)
[2024-04-24 22:00] VITALS: BP 134/77; PULSE 67; RESP 19; TEMP 36.8072
[2024-04-25] VITALS (8 sets, daily range): BP systolic 106–200; BP diastolic 49–83; PULSE 68–94; RESP 18–20; TEMP 36.55848–37.2252; O2SAT 96–100
[2024-04-25 00:32] LABS: CREATINE KINASE MB FRACTION 1.6 ng/mL (0.5-3.6)
[2024-04-25] MEDS: METRONIDAZOLE 500 MG PREMIX 100 ML IV SCH (02:14)
[2024-04-25 06:41] LABS: BASOPHILS % 0.4 % (0.0-2.0); EOSINOPHILS % 0.5 % (0.0-5.0); LYMPHOCYTES % 19.5 % (20.0-50.0); MEAN CORPUSCULAR HEMOGLOBIN 29.3 pg (28.0-32.0); MEAN CORPUSCULAR HGB CONC 33.4 g/dL (31.0-37.0); MEAN CORPUSCULAR VOLUME 87.8 fL (81.0-99.0); MEAN PLATELET VOLUME 7.8 fl (7.4-10.4); MONOCYTES % 6.6 % (2.0-8.0); PLATELET 339 x1000/uL (130-400); RED BLOOD CELL COUNT 4.44 mill/uL (4.2-5.4); RED CELL DISTRIBUTION WIDTH 13.8 % (11.6-14.6); WHITE BLOOD COUNT 14.5 x1000/uL (4.5-11.0)
[2024-04-25 06:55] LABS: CHLORIDE 105 mEq/L (98-107); SODIUM 140 mEq/L (136-145)
[2024-04-25 06:56] LABS: CARBON DIOXIDE 27 mEq/L (21-32)
[2024-04-25 06:59] LABS: CREATINE KINASE MB FRACTION 1.8 ng/mL (0.5-3.6)
[2024-04-25 07:01] LABS: CREATININE 0.7 mg/dL (0.6-1.0); GLUCOSE 202 mg/dL (70-105); TRIGLYCERIDE 79 mg/dL (0-150); UREA NITROGEN BLOOD 8 mg/dL (9-23)
[2024-04-25 07:02] LABS: ALANINE AMINOTRANSFERASE 17 IU/L (10-49); LDL CHOLESTEROL 54 mg/dL (5-100)
[2024-04-25 07:03] LABS: ALBUMIN 3.9 g/dL (3.2-4.8); ASPARTATE AMINOTRANSFERASE 14 IU/L (<34); BILIRUBIN DIRECT 0.3 mg/dL (<=3.0); BILIRUBIN TOTAL 0.7 mg/dL (0.1-1.0); CHOLESTEROL 98 mg/dL (<200); CREATINE KINASE 57 IU/L (34-145); HDL CHOLESTEROL 30 mg/dL (>65); PROTEIN TOTAL 6.8 g/dL (6.0-8.3); THYROID STIMULATING HORMONE 0.49 uIU/mL (0.55-4.78)
[2024-04-25 07:53] LABS: TROPONIN I HIGH SENSITIVITY 54 ng/L (3.0-34)
[2024-04-25 08:21] LABS: PHOSPHORUS 3.5 mg/dL (2.5-4.9)
[2024-04-25] MEDS: SERTRALINE HCL 25MG TABLET PO SCH (09:07)
[2024-04-25] MEDS: LOSARTAN 50 MG TABLET PO SCH (09:08)
[2024-04-25] MEDS: ASPIRIN 81MG EC TABLET PO SCH (09:08)
[2024-04-25] MEDS: POTASSIUM CHLORIDE 20MEQ TABLET SR PO SCH (09:08)
[2024-04-25] MEDS ORDERED: CLONIDINE 0.1MG TABLET PO PRN (11:45)
[2024-04-25] MEDS: APIXABAN 5 MG TABLET PO SCH (13:04)
[2024-04-25] MEDS: SODIUM CHLORIDE 0.45% 1,000 ML IV SCH (13:08)
[2024-04-25] MEDS: HYDRALAZINE HCL 10MG TABLET PO SCH (13:22)
[2024-04-25 16:14] LABS: CLARITY URINE CLEAR (CLEAR); COLOR URINE DARK YELLOW (YELLOW); GLUCOSE URINE 1+ (NEGATIVE); KETONES URINE NEGATIVE (NEGATIVE); LEUKOCYTE ESTERASE URINE NEGATIVE (NEGATIVE); NITRITE URINE NEGATIVE (NEGATIVE); OCCULT BLOOD URINE NEGATIVE (NEGATIVE); PROTEIN URINE 2+ (NEGATIVE); SPECIFIC GRAVITY URINE 1.019 (1.005-1.030); UROBILINOGEN URINE 0.2 E.U./dL (0.2-1.0)
[2024-04-25 17:07] LABS: BACTERIA URINE 1+; RBC URINE 0-2 /hpf (0-2); SQUAMOUS EPITHELIAL CELL URINE 1+ /lpf (RARE/1+)
[2024-04-25 17:08] LABS: WBC URINE 0-2 /hpf (0-2); YEAST URINE FEW
== END 2024-04-25 21:25 | disposition short-term general hospital (02) | DRG 720 ==
LOC: ER 10:00 → 7EST 14:16 → EDBEDREQ 14:25 → EDBEDREQTM 14:25 → UNDODISIN 04-25 16:30
PROVIDERS: ADMIT Internal Medicine; ATTEND Internal Medicine
DX: A41.89 Other specified sepsis (principal); J12.82 Pneumonia due to coronavirus disease 2019; I21.A1 Myocardial infarction type 2; A08.39 Other viral enteritis; K31.84 Gastroparesis; U07.1 COVID-19; E11.43 Type 2 diabetes mellitus with diabetic autonomic (poly)neuropathy; E11.65 Type 2 diabetes mellitus with hyperglycemia; I10 Essential (primary) hypertension; I16.1 Hypertensive emergency; I25.10 Atherosclerotic heart disease of native coronary artery without angina pectoris; F32.A Depression, unspecified; J45.909 Unspecified asthma, uncomplicated; Z79.82 Long term (current) use of aspirin; Z86.711 Personal history of pulmonary embolism; Z86.73 Personal history of transient ischemic attack (TIA), and cerebral infarction without residual deficits; R16.0 Hepatomegaly, not elsewhere classified
CPT/HCPCS: 36415; 71045; 74176; 80048; 80061; 80076; 81003; 82550; 82553; 82962; 83036; 83605; 83735; 84100; 84145; 84439; 84443; 84484; 85025; 87426; 93970; 94640; 99291; J0360; J0696; J1815; J1885; J2270; J2405; J2470; J2543; J3370; J3490; J7030; J7040; J0131

== ENCOUNTER 2024-05-01 15:53 | Emergency (ER) | payer OTHER ==
[~2024-05-01] VITALS: Ht 172.7 cm; Wt 70.0 kg
[2024-05-01 15:57] VITALS: O2SAT 99
[2024-05-01] MEDS: FAMOTIDINE 20MG/2ML VIAL IV ONE (16:43)
[2024-05-01] MEDS: ONDANSETRON HCL 4MG/2ML INJ IV ONE (16:44)
[2024-05-01] MEDS: SODIUM CHLORIDE 0.9% 1,000 ML IV ONE (16:44)
[2024-05-01] MEDS: DICYCLOMINE HCL 10MG/ML 2ML VIAL IM ONE (16:50)
[2024-05-01 17:55] LABS: BASOPHILS % 0.4 % (0.0-2.0); EOSINOPHILS % 0.4 % (0.0-5.0); HEMATOCRIT. 41.6 % (36.0-48.0); HEMOGLOBIN. 14.1 g/dL (12.0-16.0); LYMPHOCYTES % 13.2 % (20.0-50.0); MEAN CORPUSCULAR HEMOGLOBIN 30.2 pg (28.0-32.0); MEAN CORPUSCULAR HGB CONC 33.9 g/dL (31.0-37.0); MEAN CORPUSCULAR VOLUME 88.9 fL (81.0-99.0); MEAN PLATELET VOLUME 7.9 fl (7.4-10.4); MONOCYTES % 2.5 % (2.0-8.0); NEUTROPHILS % 83.5 % (40.0-76.0); PLATELET 358 x1000/uL (130-400); RED BLOOD CELL COUNT 4.68 mill/uL (4.2-5.4); RED CELL DISTRIBUTION WIDTH 13.8 % (11.6-14.6); WHITE BLOOD COUNT 18.7 x1000/uL (4.5-11.0)
[2024-05-01 18:03] LABS: CARBON DIOXIDE 27 mEq/L (21-32); CHLORIDE 105 mEq/L (98-107); POTASSIUM 3.9 mEq/L (3.5-5.1); SODIUM 138 mEq/L (136-145)
[2024-05-01 18:04] LABS: CALCIUM 9.7 mg/dL (8.7-10.4)
[2024-05-01 18:08] LABS: CREATININE 0.8 mg/dL (0.6-1.0)
[2024-05-01 18:09] LABS: GLUCOSE 292 mg/dL (70-105); UREA NITROGEN BLOOD 13 mg/dL (9-23)
[2024-05-01 18:10] LABS: ALANINE AMINOTRANSFERASE 20 IU/L (10-49); ASPARTATE AMINOTRANSFERASE 20 IU/L (<34)
[2024-05-01 18:11] LABS: ALBUMIN 4.4 g/dL (3.2-4.8); BILIRUBIN DIRECT 0.3 mg/dL (<=3.0); BILIRUBIN TOTAL 0.6 mg/dL (0.1-1.0); PROTEIN TOTAL 7.6 g/dL (6.0-8.3)
[2024-05-01 18:14] LABS: TROPONIN I HIGH SENSITIVITY 54 ng/L (3.0-34)
[2024-05-01] MEDS: LOSARTAN 50 MG TABLET PO ONE (18:21)
[2024-05-01] MEDS: SODIUM CHLORIDE 0.9% 1000ML BAG (SEPSIS BOLUS) IV NR (19:52)
[2024-05-01] MEDS: PIPERACILLIN/TAZO 3.375G/50ML 50 ML IV NR (19:52)
[2024-05-01] MEDS: VANCOMYCIN 1G PREMIX 200 ML IV NR (20:14)
[2024-05-01] MEDS ORDERED: ONDANSETRON HCL 4MG/2ML INJ IV PRN (20:30)
[2024-05-01] MEDS ORDERED: IPRATROPIUM/ALBUTEROL 0.5-3(2.5)MG/3ML NEB HHN PRN (20:30)
[2024-05-01] MEDS ORDERED: HYDRALAZINE 20MG/ML VIAL IV PRN (20:30)
[2024-05-01] MEDS ORDERED: METOCLOPRAMIDE HCL 5MG TABLET PO PRN (20:30)
[2024-05-01] MEDS ORDERED: DEXTROSE 50% WATER 50ML SYRINGE IV PRN (20:30)
[2024-05-01] MEDS ORDERED: KETOROLAC 15MG/ML VIAL IV PRN (20:30)
[2024-05-01] MEDS ORDERED: MAGNESIUM/ALUMINUM HYDROXIDE/SIMETHICONE 30ML UDC PO PRN (20:30)
[2024-05-01] MEDS ORDERED: ACETAMINOPHEN 325MG TABLET PO PRN (20:30)
[2024-05-01] MEDS ORDERED: DOCUSATE SODIUM 100MG CAPSULE PO PRN (20:30)
[2024-05-01] MEDS: BLOOD SUGAR DIAGNOSTIC STRIP TEST SCH (21:27)
[2024-05-01] MEDS: INSULIN LISPRO 100 UNITS/ML SUBCUT SCH (21:37)
[2024-05-01] MEDS: PANTOPRAZOLE SODIUM 40 MG/VIAL IV SCH (21:47)
[2024-05-01] MEDS: SODIUM CHLORIDE 0.45% 1,000 ML IV SCH (21:52)
[2024-05-01] MEDS: ATORVASTATIN CALCIUM 40MG TABLET PO SCH (21:59)
[2024-05-01] MEDS: SERTRALINE HCL 25MG TABLET PO SCH (21:59)
[2024-05-01 22:19] VITALS: BP 169/75; PULSE 87; RESP 16; TEMP 36.89184; O2SAT 99
[2024-05-02] MEDS ORDERED: METRONIDAZOLE 500 MG PREMIX 100 ML IV SCH (04:00)
[2024-05-02] MEDS ORDERED: CEFTRIAXONE 1GM/50ML 50 ML IV SCH (04:00)
[2024-05-02] MEDS ORDERED: LOSARTAN 50 MG TABLET PO SCH (06:30)
[2024-05-02] MEDS ORDERED: SERTRALINE HCL 25MG TABLET PO SCH (09:00)
[2024-05-02] MEDS ORDERED: METOPROLOL SUCCINATE 50MG ER TABLET PO SCH (09:00)
[2024-05-02] MEDS ORDERED: ASPIRIN 81MG EC TABLET PO SCH (09:00)
== END 2024-05-01 22:24 | disposition short-term general hospital (02) ==
LOC: EDBD 15:53 → ER 15:53 → EDBEDREQ 20:10 → EDBEDREQTM 20:10 → ER 22:24
DX: A41.9 Sepsis, unspecified organism (principal); Z86.73 Personal history of transient ischemic attack (TIA), and cerebral infarction without residual deficits; E11.43 Type 2 diabetes mellitus with diabetic autonomic (poly)neuropathy; I10 Essential (primary) hypertension; Z79.899 Other long term (current) drug therapy; Z79.82 Long term (current) use of aspirin; Z79.4 Long term (current) use of insulin; Z79.01 Long term (current) use of anticoagulants
CPT/HCPCS: 80076; 80048; 82962; 83605; 83690; 85025; 87040; 84484; 36415; 71045; 74176; 96367; 96361; 96365; 96372; 96375; 99291; J8597; Z7610 ×3; J0500; J3490; J1815; J2405; J2470; J2543; J3370

== ENCOUNTER 2024-10-11 13:50 | Emergency (ER) | payer OTHER ==
[~2024-10-11] VITALS: Ht 167.6 cm; Wt 105.0 kg
[~2024-10-11 13:50] MED LIST changes: -CEPH500C2 MT; +HYDR-4001 MT; +HYDR-4346 MT; +LEVO-65 MT; +ONDA4TAB50 PO; +SUCR1TAB MT
[2024-10-11 13:52] VITALS: O2SAT 98
[2024-10-11] MEDS: MORPHINE SULFATE 4 MG/ML INJ (FOR IV/IM USE) IV STA (14:47)
[2024-10-11] MEDS: ONDANSETRON HCL 4MG/2ML INJ IV STA (14:47)
[2024-10-11] MEDS: SODIUM CHLORIDE 0.9% 1,000 ML IV ONE (14:47)
[2024-10-11] MEDS: LABETALOL 5MG/ML 4ML INJ IV ONE (14:47)
[2024-10-11] MEDS: FAMOTIDINE 20MG/2ML VIAL IV ONE (14:47)
[2024-10-11] MEDS: METOCLOPRAMIDE HCL 10MG/2ML VIAL IV ONE (15:12)
[2024-10-11] MEDS: MORPHINE SULFATE 4 MG/ML INJ (FOR IV/IM USE) IV NR (16:18)
[2024-10-11 16:46] LABS: BASOPHILS % 0.3 % (0.0-2.0); HEMATOCRIT. 47.7 % (36.0-48.0); HEMOGLOBIN. 15.4 g/dL (12.0-16.0); MEAN CORPUSCULAR HEMOGLOBIN 28.8 pg (28.0-32.0); MEAN CORPUSCULAR HGB CONC 32.4 g/dL (31.0-37.0); MEAN CORPUSCULAR VOLUME 88.9 fL (81.0-99.0); MEAN PLATELET VOLUME 8.6 fl (7.4-10.4); MONOCYTES % 3.4 % (2.0-8.0); NEUTROPHILS % 86.3 % (40.0-76.0); PLATELET 285 x1000/uL (130-400); RED BLOOD CELL COUNT 5.36 mill/uL (4.2-5.4); RED CELL DISTRIBUTION WIDTH 14.5 % (11.6-14.6); WHITE BLOOD COUNT 15.4 x1000/uL (4.5-11.0)
[2024-10-11 16:54] LABS: CHLORIDE 100 mEq/L (98-107)
[2024-10-11 16:55] LABS: CARBON DIOXIDE 24 mEq/L (21-32); POTASSIUM 3.6 mEq/L (3.5-5.1); PROTHROMBIN TIME 10.7 sec (9.6-11.0); SODIUM 140 mEq/L (136-145)
[2024-10-11 16:56] LABS: CALCIUM 9.4 mg/dL (8.7-10.4)
[2024-10-11 17:00] LABS: CREATININE 0.8 mg/dL (0.6-1.0)
[2024-10-11 17:01] LABS: ETHANOL BLOOD < 10 mg/dL (<10); UREA NITROGEN BLOOD 10 mg/dL (9-23)
[2024-10-11 17:02] LABS: ALANINE AMINOTRANSFERASE 17 IU/L (10-49); ALBUMIN 4.1 g/dL (3.2-4.8); ASPARTATE AMINOTRANSFERASE 15 IU/L (<34)
[2024-10-11 17:03] LABS: BILIRUBIN DIRECT 0.3 mg/dL (<=3.0); BILIRUBIN TOTAL 1.1 mg/dL (0.1-1.0); GLUCOSE 456 mg/dL (70-105); PROTEIN TOTAL 7.6 g/dL (6.0-8.3); TROPONIN I HIGH SENSITIVITY 56 ng/L (3.0-34)
[2024-10-11 17:43] LABS: CLARITY URINE CLEAR (CLEAR); COLOR URINE YELLOW (YELLOW); GLUCOSE URINE 3+ (NEGATIVE); KETONES URINE 4+ (NEGATIVE); LEUKOCYTE ESTERASE URINE NEGATIVE (NEGATIVE); NITRITE URINE NEGATIVE (NEGATIVE); OCCULT BLOOD URINE 1+ (NEGATIVE); PROTEIN URINE 4+ (NEGATIVE); SPECIFIC GRAVITY URINE 1.028 (1.005-1.030); UROBILINOGEN URINE 0.2 E.U./dL (0.2-1.0)
[2024-10-11 17:50] LABS: *AMPHETAMINES SCREEN URINE NEGATIVE (NEGATIVE); *BARBITURATES SCREEN URINE NEGATIVE (NEGATIVE); *BENZODIAZEPINES SCREEN URINE NEGATIVE (NEGATIVE); *COCAINE SCREEN URINE NEGATIVE (NEGATIVE); METHADONE URINE SCREEN NEGATIVE (NEGATIVE)
[2024-10-11 17:51] LABS: CANNABINOID URINE SCREEN PRESUMPTIVE POSITIVE (NEGATIVE); ECSTASY MDMA SCREEN URINE NEGATIVE (NEGATIVE); OPIATES URINE SCREEN PRESUMPTIVE POSITIVE (NEGATIVE); PHENCYCLIDINE URINE SCREEN NEGATIVE (NEGATIVE)
[2024-10-11 18:03] LABS: BACTERIA URINE 3+; SQUAMOUS EPITHELIAL CELL URINE FEW /lpf (RARE/1+); WBC URINE 0-2 /hpf (0-2)
[2024-10-11] MEDS: INSULIN REGULAR (HUMULIN R) 1000UNITS/10ML VIAL IV NR (19:49)
[2024-10-11] MEDS: MORPHINE SULFATE 4 MG/ML INJ (FOR IV/IM USE) IV ONE (20:53)
[2024-10-11] MEDS: ACETAMINOPHEN 1000MG/100ML 100 ML IV ONE (20:53)
[2024-10-11 21:49] LABS: TROPONIN I HIGH SENSITIVITY 78 ng/L (3.0-34)
[2024-10-11 22:18] VITALS: BP 151/52; PULSE 108; RESP 19; O2SAT 98
== END 2024-10-11 22:58 | disposition short-term general hospital (02) ==
LOC: ER 14:01 → EDBEDREQ 19:11 → EDBEDREQTM 20:31 → EDBEDREQ 20:31 → ER 22:58
DX: K31.84 Gastroparesis (principal); I10 Essential (primary) hypertension; E11.43 Type 2 diabetes mellitus with diabetic autonomic (poly)neuropathy; Z79.899 Other long term (current) drug therapy
CPT/HCPCS: 80076; 80305; 80048; 81003; 82010; 80320; 82962; 83880; 83690; 85025; 85610; 84484; 36415; 71045; 74176; 96361; 96365; 96366; 96375; 96376; 99285; J3490 ×2; J1815; J2765; J2405; J2270; J7030; G0480; J0131

== ENCOUNTER 2024-10-28 11:22 | Inpatient (IN) | payer OTHER ==
[~2024-10-28] VITALS: Ht 162.6 cm; Wt 106.1 kg
[2024-10-28 12:15] LABS: BASOPHILS % 0.6 % (0.0-2.0); EOSINOPHILS % 0.7 % (0.0-5.0); HEMATOCRIT. 45.9 % (36.0-48.0); HEMOGLOBIN. 15.3 g/dL (12.0-16.0); LYMPHOCYTES % 22.4 % (20.0-50.0); MEAN CORPUSCULAR HEMOGLOBIN 28.8 pg (28.0-32.0); MEAN CORPUSCULAR HGB CONC 33.3 g/dL (31.0-37.0); MEAN CORPUSCULAR VOLUME 86.6 fL (81.0-99.0); MEAN PLATELET VOLUME 8.3 fl (7.4-10.4); MONOCYTES % 4.4 % (2.0-8.0); NEUTROPHILS % 71.9 % (40.0-76.0); PLATELET 345 x1000/uL (130-400); RED BLOOD CELL COUNT 5.29 mill/uL (4.2-5.4); RED CELL DISTRIBUTION WIDTH 14.4 % (11.6-14.6); WHITE BLOOD COUNT 14.4 x1000/uL (4.5-11.0)
[2024-10-28 12:32] LABS: CHLORIDE 102 mEq/L (98-107); POTASSIUM 4.3 mEq/L (3.5-5.1); SODIUM 135 mEq/L (136-145)
[2024-10-28 12:33] LABS: CARBON DIOXIDE 21 mEq/L (21-32)
[2024-10-28 12:38] LABS: CREATININE 1.1 mg/dL (0.6-1.0); GLUCOSE 396 mg/dL (70-105); UREA NITROGEN BLOOD 13 mg/dL (9-23)
[2024-10-28 12:39] LABS: ETHANOL BLOOD < 10 mg/dL (<10)
[2024-10-28 12:40] LABS: TROPONIN I HIGH SENSITIVITY 51 ng/L (3.0-34)
[2024-10-28] MEDS: MORPHINE SULFATE 4 MG/ML INJ (FOR IV/IM USE) IV ONE (12:41)
[2024-10-28] MEDS: MORPHINE SULFATE 4 MG/ML INJ (FOR IV/IM USE) IV STA (14:44)
[2024-10-28 15:37] LABS: TROPONIN I HIGH SENSITIVITY 51 ng/L (3.0-34)
[2024-10-28] MEDS: ONDANSETRON HCL 4MG/2ML INJ IV ONE (16:48)
[2024-10-28] MEDS ORDERED: CLONIDINE 0.1MG TABLET PO PRN (17:00)
[2024-10-28] MEDS ORDERED: GUAIFENESIN 200MG/10ML SUGAR FREE UDC PO PRN (17:00)
[2024-10-28] MEDS ORDERED: DEXTROSE 50% WATER 50ML SYRINGE IV PRN (17:00)
[2024-10-28] MEDS ORDERED: NA PHOS,M-B/NA PHOS,DI-BA ENEMA 118ML PR PRN (17:00)
[2024-10-28] MEDS ORDERED: ACETAMINOPHEN 325MG TABLET PO PRN (17:00)
[2024-10-28] MEDS: BLOOD SUGAR DIAGNOSTIC STRIP TEST SCH (17:00)
[2024-10-28] MEDS ORDERED: ONDANSETRON HCL 4MG/2ML INJ IV PRN (17:00)
[2024-10-28] MEDS ORDERED: IPRATROPIUM/ALBUTEROL 0.5-3(2.5)MG/3ML NEB HHN PRN (17:00)
[2024-10-28] MEDS ORDERED: HYDROCODONE/ACETAMINOPHEN 5/325MG TABLET PO PRN (17:00)
[2024-10-28] MEDS ORDERED: DOCUSATE SODIUM 100MG CAPSULE PO PRN (17:00)
[2024-10-28] MEDS ORDERED: MAGNESIUM/ALUMINUM HYDROXIDE/SIMETHICONE 30ML UDC PO PRN (17:00)
[2024-10-28 17:24] VITALS: BP 158/76; PULSE 99; RESP 20; TEMP 36.6
[2024-10-28 17:32] LABS: ALANINE AMINOTRANSFERASE 17 IU/L (10-49); ALBUMIN 4.1 g/dL (3.2-4.8); ASPARTATE AMINOTRANSFERASE 20 IU/L (<34); BILIRUBIN DIRECT 0.4 mg/dL (<=3.0); BILIRUBIN TOTAL 1.4 mg/dL (0.1-1.0); PHOSPHORUS 2.8 mg/dL (2.5-4.9); PROTEIN TOTAL 7.8 g/dL (6.0-8.3)
[2024-10-28] MEDS: INSULIN LISPRO 100 UNITS/ML SUBCUT SCH (17:40)
[2024-10-28 18:07] LABS: CLARITY URINE CLOUDY (CLEAR); COLOR URINE DARK YELLOW (YELLOW); GLUCOSE URINE 3+ (NEGATIVE); KETONES URINE 1+ (NEGATIVE); LEUKOCYTE ESTERASE URINE NEGATIVE (NEGATIVE); NITRITE URINE NEGATIVE (NEGATIVE); OCCULT BLOOD URINE NEGATIVE (NEGATIVE); PH URINE 5.5 (4.5-8.0); PROTEIN URINE 3+ (NEGATIVE); SPECIFIC GRAVITY URINE 1.043 (1.005-1.030)
[2024-10-28 18:24] LABS: *AMPHETAMINES SCREEN URINE NEGATIVE (NEGATIVE); *BENZODIAZEPINES SCREEN URINE NEGATIVE (NEGATIVE)
[2024-10-28 18:25] LABS: *BARBITURATES SCREEN URINE NEGATIVE (NEGATIVE); *COCAINE SCREEN URINE NEGATIVE (NEGATIVE); CANNABINOID URINE SCREEN PRESUMPTIVE POSITIVE (NEGATIVE); ECSTASY MDMA SCREEN URINE NEGATIVE (NEGATIVE); METHADONE URINE SCREEN NEGATIVE (NEGATIVE); OPIATES URINE SCREEN PRESUMPTIVE POSITIVE (NEGATIVE); PHENCYCLIDINE URINE SCREEN NEGATIVE (NEGATIVE)
[2024-10-28] MEDS: LIDOCAINE 5% PATCH TOP SCH (18:34)
[2024-10-28 18:56] LABS: BACTERIA URINE 3+; RBC URINE 0-2 /hpf (0-2); SQUAMOUS EPITHELIAL CELL URINE 2+ /lpf (RARE/1+); WBC URINE 0-2 /hpf (0-2)
[2024-10-28 20:00] VITALS: BP 112/76; PULSE 96; RESP 20; TEMP 36.3; O2SAT 98
[2024-10-28] MEDS: ACETAMINOPHEN 325MG TABLET PO PRN (21:41)
[2024-10-28] MEDS ORDERED: METOCLOPRAMIDE HCL 10MG TABLET PO PRN (22:15)
[2024-10-28] MEDS ORDERED: NALOXONE HCL 0.4MG/ML VIAL IV PRN (22:15)
[2024-10-28 22:49] LABS: CREATINE KINASE 69 IU/L (34-145)
[2024-10-28 23:02] LABS: TROPONIN I HIGH SENSITIVITY 69 ng/L (3.0-34)
[2024-10-28] MEDS: MAGNESIUM 4 G PREMIX 100 ML IV NR (23:28)
[2024-10-28] MEDS: SULFAMETHOXAZOLE/TRIMETHOPRIM 800/160MG TABLET PO SCH (23:28)
[2024-10-28] MEDS: INSULIN REGULAR (HUMULIN R) 1000UNITS/10ML VIAL IV NR (23:31)
[2024-10-28] MEDS: INSULIN GLARGINE 100 UNITS/ML SUBCUT SCH (23:31)
[2024-10-29] VITALS: BP 132/63; PULSE 86; RESP 20; TEMP 36; O2SAT 95
[2024-10-29 04:00] VITALS: BP 138/75; PULSE 96; RESP 18; TEMP 35.9; O2SAT 100
[2024-10-29] MEDS: PANTOPRAZOLE 40MG DR TABLET PO SCH (06:15)
[2024-10-29] MEDS: SUCRALFATE 1G TABLET PO SCH (06:15)
[2024-10-29] MEDS: GABAPENTIN 100MG CAPSULE PO SCH (06:15)
[2024-10-29] MEDS: INSULIN LISPRO 100 UNITS/ML SUBCUT SCH ×2 (06:17)
[2024-10-29 08:00] VITALS: BP 136/70; PULSE 99; RESP 18; TEMP 36.7; O2SAT 99
[2024-10-29] MEDS: ASPIRIN 81MG TABLET PO SCH (08:43)
[2024-10-29] MEDS: METOPROLOL SUCCINATE 50MG ER TABLET PO SCH (08:44)
[2024-10-29] MEDS: LOSARTAN 25 MG TABLET PO SCH (08:44)
[2024-10-29] MEDS: SERTRALINE HCL 50MG TABLET PO SCH (08:44)
[2024-10-29] MEDS: ENOXAPARIN 30MG/0.3ML SYR SUBCUT SCH (08:45)
[2024-10-29 10:00] LABS: BASOPHILS % 0.6 % (0.0-2.0); EOSINOPHILS % 1.9 % (0.0-5.0); HEMATOCRIT. 48.4 % (36.0-48.0); MEAN CORPUSCULAR HEMOGLOBIN 29.2 pg (28.0-32.0); MEAN CORPUSCULAR VOLUME 88.4 fL (81.0-99.0); MEAN PLATELET VOLUME 8.4 fl (7.4-10.4); MONOCYTES % 5.2 % (2.0-8.0); NEUTROPHILS % 63.3 % (40.0-76.0); PLATELET 332 x1000/uL (130-400); RED BLOOD CELL COUNT 5.48 mill/uL (4.2-5.4); RED CELL DISTRIBUTION WIDTH 14.5 % (11.6-14.6); WHITE BLOOD COUNT 10.8 x1000/uL (4.5-11.0)
[2024-10-29 10:06] LABS: CHLORIDE 103 mEq/L (98-107); POTASSIUM 3.6 mEq/L (3.5-5.1); SODIUM 137 mEq/L (136-145)
[2024-10-29 10:07] LABS: CARBON DIOXIDE 25 mEq/L (21-32)
[2024-10-29 10:12] LABS: GLUCOSE 148 mg/dL (70-105); UREA NITROGEN BLOOD 13 mg/dL (9-23)
[2024-10-29 10:14] LABS: CREATINE KINASE 75 IU/L (34-145)
[2024-10-29 10:16] LABS: T4 FREE 1.57 ng/dL (0.89-1.76)
[2024-10-29 10:17] LABS: THYROID STIMULATING HORMONE 0.26 uIU/mL (0.55-4.78)
[2024-10-29 10:30] LABS: TROPONIN I HIGH SENSITIVITY 79 ng/L (3.0-34)
[2024-10-29 12:00] VITALS: BP 105/57; PULSE 87; RESP 18; TEMP 36.7; O2SAT 98
[2024-10-29 12:38] VITALS: BP 106/57; PULSE 87; TEMP 98.1; O2SAT 98
[2024-10-29] MEDS ORDERED: ATORVASTATIN CALCIUM 40MG TABLET PO SCH (21:00)
== END 2024-10-29 14:22 | disposition home or self-care (01) | DRG 720 ==
LOC: ER 11:22 → EDBEDREQ 15:49 → 8WST 17:33
PROVIDERS: ADMIT Internal Medicine; ATTEND Internal Medicine
DX: A41.9 Sepsis, unspecified organism (principal); I21.A1 Myocardial infarction type 2; K31.84 Gastroparesis; E11.43 Type 2 diabetes mellitus with diabetic autonomic (poly)neuropathy; M94.0 Chondrocostal junction syndrome [Tietze]; N39.0 Urinary tract infection, site not specified; I10 Essential (primary) hypertension; E78.5 Hyperlipidemia, unspecified; M54.2 Cervicalgia; I25.10 Atherosclerotic heart disease of native coronary artery without angina pectoris; J45.909 Unspecified asthma, uncomplicated; F41.1 Generalized anxiety disorder; F32.9 Major depressive disorder, single episode, unspecified; Z60.2 Problems related to living alone; Z86.711 Personal history of pulmonary embolism; Z79.01 Long term (current) use of anticoagulants; Z79.4 Long term (current) use of insulin; Z79.82 Long term (current) use of aspirin; Z79.899 Other long term (current) drug therapy; Z87.11 Personal history of peptic ulcer disease
CPT/HCPCS: 36415; 71045; 80048; 80076; 80305; 80320; 81003; 82550; 82962; 83605; 83735; 83880; 84100; 84145; 84439; 84443; 84484; 85025; 85379; 93005; 93970; 99285; A4606; J1650; J1815; J2270; J2405; J3475; G0480

== ENCOUNTER 2024-11-18 14:15 | Emergency (ER) | payer OTHER ==
[~2024-11-18] VITALS: Ht 172.7 cm; Wt 100.0 kg
[2024-11-18 14:18] VITALS: O2SAT 96
[2024-11-18] MEDS: SODIUM CHLORIDE 0.9% 1,000 ML IV ONE (15:05)
[2024-11-18] MEDS: ONDANSETRON HCL 4MG/2ML INJ IV STA ×3 (15:14→18:34)
[2024-11-18] MEDS: MORPHINE SULFATE 4 MG/ML INJ (FOR IV/IM USE) IV STA ×3 (15:14→18:35)
[2024-11-18 15:15] LABS: BASOPHILS % 0.6 % (0.0-2.0); EOSINOPHILS % 1.2 % (0.0-5.0); HEMATOCRIT. 42.4 % (36.0-48.0); LYMPHOCYTES % 23.9 % (20.0-50.0); MEAN CORPUSCULAR HEMOGLOBIN 28.7 pg (28.0-32.0); MEAN CORPUSCULAR HGB CONC 33.1 g/dL (31.0-37.0); MEAN CORPUSCULAR VOLUME 86.6 fL (81.0-99.0); MONOCYTES % 6.2 % (2.0-8.0); NEUTROPHILS % 68.1 % (40.0-76.0); PLATELET 335 x1000/uL (130-400); RED BLOOD CELL COUNT 4.89 mill/uL (4.2-5.4); RED CELL DISTRIBUTION WIDTH 14.3 % (11.6-14.6); WHITE BLOOD COUNT 14.1 x1000/uL (4.5-11.0)
[2024-11-18 15:21] LABS: CHLORIDE 105 mEq/L (98-107); POTASSIUM 3.3 mEq/L (3.5-5.1); SODIUM 142 mEq/L (136-145)
[2024-11-18 15:22] LABS: CARBON DIOXIDE 28 mEq/L (21-32)
[2024-11-18 15:23] LABS: CALCIUM 9.5 mg/dL (8.7-10.4)
[2024-11-18 15:27] LABS: CREATININE 0.7 mg/dL (0.6-1.0); GLUCOSE 185 mg/dL (70-105)
[2024-11-18 15:28] LABS: INR 0.9; PARTIAL THROMBOPLASTIN TIME 25.2 sec (23.4-31.0); PROTHROMBIN TIME 10.1 sec (9.6-11.0); UREA NITROGEN BLOOD 10 mg/dL (9-23)
[2024-11-18 15:29] LABS: ALANINE AMINOTRANSFERASE 18 IU/L (10-49); ALBUMIN 4.1 g/dL (3.2-4.8); ASPARTATE AMINOTRANSFERASE 14 IU/L (<34)
[2024-11-18 15:30] LABS: BILIRUBIN DIRECT 0.2 mg/dL (<=3.0); BILIRUBIN TOTAL 0.7 mg/dL (0.1-1.0); PROTEIN TOTAL 7.6 g/dL (6.0-8.3)
[2024-11-18 16:01] LABS: TROPONIN I HIGH SENSITIVITY 54 ng/L (3.0-34)
[2024-11-18] MEDS: ASPIRIN 325MG EC TABLET PO ONE (18:20)
[2024-11-18 18:34] LABS: CLARITY URINE CLEAR (CLEAR); COLOR URINE YELLOW (YELLOW); GLUCOSE URINE 1+ (NEGATIVE); KETONES URINE TRACE (NEGATIVE); LEUKOCYTE ESTERASE URINE NEGATIVE (NEGATIVE); NITRITE URINE NEGATIVE (NEGATIVE); OCCULT BLOOD URINE NEGATIVE (NEGATIVE); PH URINE 7.5 (4.5-8.0); PROTEIN URINE 3+ (NEGATIVE); SPECIFIC GRAVITY URINE 1.016 (1.005-1.030); UROBILINOGEN URINE 0.2 E.U./dL (0.2-1.0)
[2024-11-18] MEDS ORDERED: MAGNESIUM 1 G PREMIX 100 ML IV ONE (18:45)
[2024-11-18] MEDS: KCL 20MEQ/100ML PREMIX 100 ML IV ONE (18:59)
[2024-11-18 19:02] LABS: BACTERIA URINE TRACE; SQUAMOUS EPITHELIAL CELL URINE 1+ /lpf (RARE/1+)
[2024-11-18 19:03] LABS: RBC URINE 0-2 /hpf (0-2); WBC URINE 0-2 /hpf (0-2)
[2024-11-18 20:20] VITALS: BP 159/84; PULSE 83; RESP 16; TEMP 37.1; O2SAT 93
[2024-11-18 20:35] LABS: TROPONIN I HIGH SENSITIVITY 45 ng/L (3.0-34)
== END 2024-11-18 20:29 | disposition short-term general hospital (02) ==
LOC: ER 14:15 → EDBEDREQ 20:59 → EDBEDREQTM 20:59
DX: R10.84 Generalized abdominal pain (principal); E87.6 Hypokalemia; R07.89 Other chest pain; E83.42 Hypomagnesemia; F17.200 Nicotine dependence, unspecified, uncomplicated; I25.2 Old myocardial infarction; I10 Essential (primary) hypertension; K21.9 Gastro-esophageal reflux disease without esophagitis; E11.9 Type 2 diabetes mellitus without complications; F12.90 Cannabis use, unspecified, uncomplicated; Z86.73 Personal history of transient ischemic attack (TIA), and cerebral infarction without residual deficits; Z79.899 Other long term (current) drug therapy
CPT/HCPCS: 80076; 80048; 81003; 83880; 83690; 83735; 85025; 85610; 85730; 87086; 84484; 36415; 71045; 74176; 93005; 96361; 96365; 96375; 96376; 99285; J2405; J3480; J2270; J7030; Z7610 ×3; A4606

== ENCOUNTER 2025-04-26 18:45 | Inpatient (IN) | payer OTHER ==
[~2025-04-26] VITALS: Ht 162.6 cm; Wt 112.9 kg
[~2025-04-26 18:45] MED LIST changes: -HYDR-4001 MT; -HYDR-4346 MT; +HYDR50TA40 MT; +INSU100I28 SQ; -INSU100I32 SUBCUT; -INSU100I68 SUBCUT; -LEVO-65 MT; -METO-396 PO; +METO-539 MT; -SUCR1TAB MT
[2025-04-26 18:48] VITALS: O2SAT 96
[2025-04-26 19:48] LABS: BASOPHILS % 0.5 % (0.0-2.0); EOSINOPHILS % 1.0 % (0.0-5.0); HEMATOCRIT. 40.0 % (36.0-48.0); HEMOGLOBIN. 13.1 g/dL (12.0-16.0); LYMPHOCYTES % 17.9 % (20.0-50.0); MEAN PLATELET VOLUME 7.9 fl (7.4-10.4); MONOCYTES % 4.6 % (2.0-8.0); NEUTROPHILS % 76.0 % (40.0-76.0); PLATELET 339 x1000/uL (130-400); RED BLOOD CELL COUNT 4.61 mill/uL (4.2-5.4); RED CELL DISTRIBUTION WIDTH 14.5 % (11.6-14.6)
[2025-04-26 20:02] LABS: CREATININE 0.7 mg/dL (0.6-1.0); UREA NITROGEN BLOOD 8 mg/dL (9-23)
[2025-04-26 20:04] LABS: ASPARTATE AMINOTRANSFERASE 17 IU/L (<34); BILIRUBIN DIRECT 0.4 mg/dL (<=3.0); BILIRUBIN TOTAL 1.1 mg/dL (0.1-1.0); PROTEIN TOTAL 7.0 g/dL (6.0-8.3)
[2025-04-26 20:15] LABS: TROPONIN I HIGH SENSITIVITY 75 ng/L (3.0-34)
[2025-04-26] MEDS: HALOPERIDOL LACTATE 5MG/ML VIAL IM ONE (20:25)
[2025-04-26] MEDS: SODIUM CHLORIDE 0.9% 1,000 ML IV ONE (20:25)
[2025-04-27] VITALS (9 sets, daily range): BP systolic 137–191; BP diastolic 47–83; PULSE 73–97; RESP 17–19; TEMP 36.4–36.9; O2SAT 95–100
[2025-04-27] MEDS ORDERED: ONDANSETRON HCL 4MG/2ML INJ IV PRN ×2 (01:30→08:00)
[2025-04-27] MEDS ORDERED: HYDRALAZINE 20MG/ML VIAL IV PRN (01:30)
[2025-04-27] MEDS ORDERED: DEXTROSE 50% WATER 50ML SYRINGE IV PRN (01:30)
[2025-04-27] MEDS: KCL 20MEQ/100ML PREMIX 100 ML IV SCH (02:45)
[2025-04-27] MEDS: HYDROCODONE/ACETAMINOPHEN 10/325MG TABLET PO PRN (05:26)
[2025-04-27] MEDS: HYDRALAZINE HCL 50MG TABLET PO SCH (05:50)
[2025-04-27] MEDS: BLOOD SUGAR DIAGNOSTIC STRIP TEST SCH (05:59)
[2025-04-27] MEDS: POTASSIUM CHLORIDE 20MEQ TABLET SR PO NR (06:31)
[2025-04-27] MEDS: PANTOPRAZOLE 40MG DR TABLET PO SCH (06:31)
[2025-04-27] MEDS: INSULIN LISPRO 100 UNITS/ML SUBCUT SCH (06:53)
[2025-04-27] MEDS: GABAPENTIN 100MG CAPSULE PO SCH (08:28)
[2025-04-27] MEDS: ENOXAPARIN 40MG/0.4ML SYR SUBCUT SCH (08:28)
[2025-04-27] MEDS: METOPROLOL TARTRATE 50MG TABLET PO SCH (08:28)
[2025-04-27 08:46] LABS: CREATININE 0.7 mg/dL (0.6-1.0)
[2025-04-27 08:47] LABS: TRIGLYCERIDE 58 mg/dL (0-150); UREA NITROGEN BLOOD 8 mg/dL (9-23)
[2025-04-27 08:48] LABS: ASPARTATE AMINOTRANSFERASE 20 IU/L (<34); LDL CHOLESTEROL 56 mg/dL (5-100)
[2025-04-27 08:49] LABS: BILIRUBIN TOTAL 1.0 mg/dL (0.1-1.0); PROTEIN TOTAL 6.4 g/dL (6.0-8.3)
[2025-04-27 08:50] LABS: BASOPHILS % 0.5 % (0.0-2.0); EOSINOPHILS % 0.1 % (0.0-5.0); HEMATOCRIT. 36.0 % (36.0-48.0); HEMOGLOBIN. 11.8 g/dL (12.0-16.0); LYMPHOCYTES % 22.9 % (20.0-50.0); MEAN PLATELET VOLUME 8.3 fl (7.4-10.4); MONOCYTES % 4.7 % (2.0-8.0); NEUTROPHILS % 71.8 % (40.0-76.0); PLATELET 322 x1000/uL (130-400); RED BLOOD CELL COUNT 4.12 mill/uL (4.2-5.4); RED CELL DISTRIBUTION WIDTH 14.4 % (11.6-14.6)
[2025-04-27] MEDS: INSULIN GLARGINE 100 UNITS/ML SUBCUT SCH (09:25)
[2025-04-27] MEDS ORDERED: NALOXONE HCL 0.4MG/ML VIAL IV PRN (13:30)
[2025-04-27] MEDS: MAGNESIUM 2 G PREMIX 50 ML IV SCH (13:56)
[2025-04-27 15:42] LABS: CLARITY URINE CLEAR (CLEAR); GLUCOSE URINE NEGATIVE (NEGATIVE); KETONES URINE NEGATIVE (NEGATIVE); LEUKOCYTE ESTERASE URINE NEGATIVE (NEGATIVE); NITRITE URINE NEGATIVE (NEGATIVE); OCCULT BLOOD URINE NEGATIVE (NEGATIVE); PH URINE 7.0 (4.5-8.0); PROTEIN URINE 3+ (NEGATIVE); SPECIFIC GRAVITY URINE 1.015 (1.005-1.030); UROBILINOGEN URINE 1.0 E.U./dL (0.2-1.0)
[2025-04-27 16:08] LABS: COLOR URINE STRAW (YELLOW)
[2025-04-27 16:10] LABS: BACTERIA URINE 1+; MUCUS URINE TRACE /lpf (< = 2+); RBC URINE NONE SEEN /hpf (0-2); SQUAMOUS EPITHELIAL CELL URINE FEW /lpf (RARE/1+); WBC URINE 0-2 /hpf (0-2)
[2025-04-27] MEDS: ATORVASTATIN CALCIUM 40MG TABLET PO SCH (20:32)
== END 2025-04-27 21:41 | disposition short-term general hospital (02) | DRG 48 ==
LOC: ER 18:45 → 8WST 20:32 → EDBEDREQ 20:37 → EDBEDREQTM 20:37 → ENRESERV 23:33
PROVIDERS: ADMIT Internal Medicine; ATTEND Internal Medicine
DX: E11.43 Type 2 diabetes mellitus with diabetic autonomic (poly)neuropathy (principal); E66.9 Obesity, unspecified; K52.9 Noninfective gastroenteritis and colitis, unspecified; K31.84 Gastroparesis; E87.6 Hypokalemia; I10 Essential (primary) hypertension; I25.10 Atherosclerotic heart disease of native coronary artery without angina pectoris; K57.30 Diverticulosis of large intestine without perforation or abscess without bleeding; F12.90 Cannabis use, unspecified, uncomplicated; Z68.41 Body mass index [BMI] 40.0-44.9, adult; Z79.82 Long term (current) use of aspirin; Z79.899 Other long term (current) drug therapy
CPT/HCPCS: 36415; 74176; 80048; 80053; 80061; 80076; 81003; 82962; 83036; 83605; 83735; 83880; 84484; 85025; 96360; 99285; A4606; J1630; J1650; J1815; J2405; J3475; J3480; J7030